=== PATIENT | female | born 1965 | race Caucasian/White ===

== ENCOUNTER 2016-04-04 14:02 | Emergency (ER) | payer BC, OTHER ==
--- NOTE | 2016-04-04 14:28 | ED ---
URI HPI - General Stated Complaint: Congestion/SOB-1 week Time Seen by Provider: 04/04/16 14:11 Source: RN notes reviewed - History of Present Illness Initial Comments: Patient is a 50-year-old female presents to the emergency room for evaluation of sinus congestion and productive cough. Patient states symptoms began about a week ago. Patient states symptoms are not improving. Patient states taking ibuprofen and her normal medications with no relief of symptoms. Patient does admit having a history of COPD. Patient states she is coughing up white sputum. Patient states the middle of quitting smoking. Patient denies any fevers. Patient denies bodyaches. Patient states he is up-to-date in her immunizations besides influenza vaccine. Patient denies chest pain. Patient also states she is experiencing mild throat pain. Patient denies abdominal pain , nausea or vomiting. - Related Data Home Medications Medication Instructions Recorded Confirmed Albuterol Sulfate [Ventolin HFA] 1 - 2 puff INHALATION RT-Q6H PRN 02/17/1404/04 Aspirin 81 mg PO DAILY 02/17/14 04/04/16 Budesonide-Formot 160-4.5 Mcg 2 puff INHALATION RT-BID 02/17/14 04/04/16 [Symbicort 160-4.5 Mcg Inhaler] Divalproex ER [Depakote ER] 1,000 mg PO DAILY 02/17/14 04/04/16 Ipratropium-Albuterol Nebulize 3 ml INHALATION RT-Q4H PRN 02/17/14 04/04/16 [Duoneb 0.5 mg-3 mg/3 ml Soln] Lisinopril [Zestril] 5 mg PO DAILY 02/17/14 04/04/16 Spironolactone [Aldactone] 25 mg PO DAILY 02/17/14 04/04/16 Carvedilol [Coreg] 6.25 mg PO BID 04/04/16 04/04/16 Ipratropium [place] [Atrovent Hfa] 2 puff INHALATION RT-QID 04/04/16 04/04/16 Topiramate [Topamax] 25 mg PO BID 04/04/16 04/04/16 Vortioxetine Hydrobromide 10 mg PO DAILY 04/04/16 04/04/16 [Trintellix] Previous Rx's Medication Instructions Recorded methylPREDNISolone Dose Pack 4 mg PO DIRECTED #21 package 04/04/16 [Medrol Dose Pack] Allergies Allergy/AdvReac Type Severity Reaction Status Date / Time cephalexin monohydrate Allergy Rash/Hives Verified 04/04/16 14:22 [From Keflex] haloperidol [From Haldol] Allergy Unknown Verified 04/04/16 14:22 haloperidol lactate Allergy Unknown Verified 04/04/16 14:22 [From Haldol] Review of Systems ROS Statement: Those systems with pertinent positive or pertinent negative responses have been documented in the HPI. ROS Other: All systems not noted in ROS Statement are negative. Past Medical History Past Medical History: COPD, Myocardial Infarction ([place]) History of Any Multi-Drug Resistant Organisms: None Reported Past Surgical History: Section, Tubal Ligation, Uterine Ablation Past Psychological History: Anxiety, Bipolar, Depression Smoking Status: Current every day smoker Past Alcohol Use History: Rare Past Drug Use History: None Reported General Exam - General Exam Comments Initial Comments: Sitting on exam chair, no acute distress. Limitations: no limitations General appearance: alert, in no apparent distress Head exam: Present: atraumatic, normocephalic, normal inspection Eye exam: Present: normal appearance ENT exam: Present: normal exam, mucous membranes moist, TM's normal bilaterally , normal external ear exam Expanded Mouth exam: Present: normal external inspection Teeth exam: Present: normal inspection Throat exam: normal inspection Neck exam: Present: normal inspection Respiratory exam: Present: wheezes. Absent: respiratory distress Cardiovascular Exam: Present: regular rate, normal rhythm, normal heart sounds Extremities exam: Present: normal inspection Back exam: Present: normal inspection Neurological exam: Present: alert, oriented X3, CN II-XII intact, normal gait Psychiatric exam: Present: normal affect, normal mood Skin exam: Present: warm, dry, intact, normal color. Absent: rash Course Vital Signs 04/04/16 04/04/16 14:23 17:00 Temperature 98.0 F 97.8 F Pulse Rate 66 70 Respiratory 16 18 Rate Blood Pressure 120/68 118/72 O2 Sat by Pulse 98 98 Oximetry - Reevaluation(s) Reevaluation #1: 04/04/16 15:09 Chest x-ray was performed. Chest x-ray: There is a somewhat convex margin of the right pulmonary artery which could be seen with adenopathy or mass. Follow- up computed tomography scan chest (per radiology). Blood work will be ordered and patient will be sent for CT. Patient updated. Medical Decision Making - Medical Decision Making Patient is a 50-year-old female presents emergency room for evaluation of cough and congestion. Chest x-ray: Somewhat convex margin of the right pulmonary artery which could be seen with adenopathy or mass. Follow-up computed tomography scan chest. Chest CTA: No CT evidence for pulmonary embolism. Mild emphysema change without acute pulmonary process. Labs show no significant findings. Place patient on Medrol Dosepak and have her follow-up with her primary care provider. Patient states she understands everything that was discussed with her. Return parameters discussed. Case discussed with Dr. Paula. - Lab Data Result diagrams: 04/04/16 15:35 04/04/16 15:35 Lab Results 04/04/16 04/04/16 04/04/16 Range/Units 14:39 15:35 15:35 WBC 12.1 H (3.8-10.6) k/uL RBC 4.28 (3.80-5.40) m/uL Hgb 13.7 (11.4-16.0) gm/dL Hct 40.9 (34.0-46.0) % MCV 95.4 (80.0-100.0) fL MCH 32.0 (25.0-35.0) pg MCHC 33.5 (31.0-37.0) g/dL RDW 12.3 (11.5-15.5) % Plt Count 316 (150-450) k/uL Neutrophils % 69 % Lymphocytes % 20 % Monocytes % 5 % Eosinophils % 4 % Basophils % 1 % Neutrophils # 8.3 H (1.3-7.7) k/uL Lymphocytes # 2.5 (1.0-4.8) k/uL Monocytes # 0.7 (0-1.0) k/uL Eosinophils # 0.4 (0-0.7) k/uL Basophils # 0.1 (0-0.2) k/uL Sodium 139 (137-145) mmol/L Potassium 4.3 (3.5-5.1) mmol/L Chloride 104 (98-107) mmol/L Carbon Dioxide 24 (22-30) mmol/L Anion Gap 11 mmol/L BUN 10 (7-17) mg/dL Creatinine 0.71 (0.52-1.04) mg/dL Est GFR (MDRD) Af Amer >60 (>60 ml/min/1.73 sqM) Est GFR (MDRD) Non-Af >60 (>60 ml/min/1.73 sqM) Glucose 96 (74-99) mg/dL Calcium 9.4 (8.4-10.2) mg/dL Total Bilirubin 0.3 (0.2-1.3) mg/dL AST 20 (14-36) U/L ALT 34 (9-52) U/L Alkaline Phosphatase 59 (38-126) U/L Total Protein 6.9 (6.3-8.2) g/dL Albumin 4.2 (3.5-5.0) g/dL Influenza Type A RNA Not Detected (Not Detectd) Influenza Type B (PCR) Not Detected (Not Detectd) - Radiology Data Radiology results: report reviewed, image reviewed Disposition Clinical Impression: Upper respiratory infection Disposition: HOME SELF-CARE Condition: Good Instructions: Upper Respiratory Infection (ED) Additional Instructions: Take medications as directed. Take Tylenol or ibuprofen as needed for pain. Please follow up with primary care provider in 1-2 days. If any new symptom arises or symptoms worsen, return to ER as soon as possible. Prescriptions: methylPREDNISolone Dose Pack [Medrol Dose Pack] 4 mg PO DIRECTED #21 package Referrals: Dell Lozoya MD [Primary Care Provider] - 1-2 days Time of Disposition: 16:54
--- NOTE | 2016-04-04 14:39 | XR ---
EXAMINATION TYPE: XR chest 2V DATE OF EXAM: 04/04/2016 2:33 PM COMPARISON: 06/25/2013 HISTORY: Shortness of breath FINDINGS: The lungs are clear and there is no pneumothorax, pleural effusion, or focal pneumonia. Prominence the pulmonary artery is now noted. Correlate for pulmonary arterial hypertension. Somewhat convex [place] of the right hilum now seen. Mild hypertrophic change of the spine. Biapical pleural thickening noted. IMPRESSION: 1. No acute process. There is a somewhat convex margin of the right pulmonary artery which could be s een with adenopathy or mass. Recommend follow-up CT scan chest.
[2016-04-04] MEDS ORDERED: RX INFO: IV CONTRAST WAS GIVEN 1 EACH MISC MISCELLANE PRN (15:07)
[2016-04-04 15:44] LABS: Basophils # (A) 0.1 k/uL (0-0.2); Basophils % (A) 1 %; CH 32.7; CHCM 34.4; Eosinophils # (A) 0.4 k/uL (0-0.7); Eosinophils % (A) 4 %; HCT 40.9 % (34.0-46.0); HDW 2.24; HGB 13.7 gm/dL (11.4-16.0); Luc # (Auto) 0.19; Luc % (Auto) 2; Lymphocytes # (A) 2.5 k/uL (1.0-4.8); Lymphocytes % (A) 20 %; MCHC 33.5 g/dL (31.0-37.0); MCV 95.4 fL (80.0-100.0); Mean Platelet Volume 7.5; Monocytes # (A) 0.7 k/uL (0-1.0); Monocytes % (A) 5 %; Neutrophils # (A) 8.3 k/uL (1.3-7.7); Neutrophils % (A) 69 %; RBC 4.28 m/uL (3.80-5.40); RDW 12.3 % (11.5-15.5); WBC 12.1 k/uL (3.8-10.6); WBC (Perox) 12.35
[2016-04-04 15:51] LABS: ALT 34 U/L (9-52); AST 20 U/L (14-36); Alkaline Phosphatase 59 U/L (38-126); Anion Gap 11 mmol/L; Blood Urea Nitrogen 10 mg/dL (7-17); Calcium 9.4 mg/dL (8.4-10.2); Carbon Dioxide 24 mmol/L (22-30); Chloride 104 mmol/L (98-107); Glucose 96 mg/dL (74-99); Non-African American GFR(MDRD) >60 (>60 ml/min/1.73 sqM); Potassium 4.3 mmol/L (3.5-5.1); Sodium 139 mmol/L (137-145); Total Bilirubin 0.3 mg/dL (0.2-1.3); Total Protein 6.9 g/dL (6.3-8.2)
--- NOTE | 2016-04-04 16:42 | CT ---
EXAMINATION TYPE: CT angio chest DATE OF EXAM: 04/04/2016 4:37 PM COMPARISON: NONE HISTORY: PT states of chest tightness and SOB. CT DLP: 303.7 mGycm Automated exposure control for dose reduction was used. CONTRAST: CTA scan of the thorax is performed with IV Contrast, patient injected with 75 mL of Omnipaque 350, p ulmonary embolism protocol. MIP images are created and reviewed. 3D reconstructed images are create d on an independent workstation and reviewed. FINDINGS: LUNGS: Exam is suboptimal as there is respiratory motion artifact making evaluation suboptimal partic ularly for subcentimeter nodularity. Mild emphysematous change with mild bilateral apical scarring is present. No suspicious groundglass opacity and consolidation is seen. No concerning parenchymal mass is identified. No pleural effusion or pneumothorax is seen. Tracheobronchial tree is patent. MEDIASTINUM: There is satisfactory enhancement of the pulmonary artery and its branches, there is no CT evidence for pulmonary embolism. There are no greater than 1 cm hilar or mediastinal lymph nodes. No cardiomegaly or pericardial effusion is seen. OTHER: Liver is low dense suggesting fatty infiltration. IMPRESSION: 1. NO CT EVIDENCE FOR PULMONARY EMBOLISM. 2. MILD EMPHYSEMATOUS CHANGE WITHOUT ACUTE PULMONARY PROCESS.
[2016-04-04 17:22] VITALS: BP 118/72; PULSE 70; RESP 18; TEMP 97.8
== END 2016-04-04 17:23 | disposition home or self-care (01) ==
LOC: EC 14:02
DX: J06.9 Acute upper respiratory infection, unspecified (principal); J44.9 Chronic obstructive pulmonary disease, unspecified; R07.0 Pain in throat; Z79.899 Other long term (current) drug therapy; I25.2 Old myocardial infarction; F17.200 Nicotine dependence, unspecified, uncomplicated; Z79.51 Long term (current) use of inhaled steroids; Z79.82 Long term (current) use of aspirin; Z88.1 Allergy status to other antibiotic agents; Z88.8 Allergy status to other drugs, medicaments and biological substances; Z87.891 Personal history of nicotine dependence
CPT/HCPCS: 99285; 36415; 80053; 85025; 87502; 71020; 71275; Q9967

== ENCOUNTER → 2016-06-17 | Outpatient (CLI) | payer OTHER ==
[2016-06-17 15:04] LABS: Anion Gap 8 mmol/L; Blood Urea Nitrogen 11 mg/dL (7-17); Calcium 9.4 mg/dL (8.4-10.2); Carbon Dioxide 31 mmol/L (22-30); Chloride 101 mmol/L (98-107); Glucose 95 mg/dL (74-99); Non-African American GFR(MDRD) >60 (>60 ml/min/1.73 sqM); Potassium 3.9 mmol/L (3.5-5.1); Sodium 140 mmol/L (137-145)
== END ==
LOC: LABWHC1 13:18
PROVIDERS: ATTEND Internal Medicine Cardiovascular Disease
DX: I10 Essential (primary) hypertension (principal)
CPT/HCPCS: 36415; 80048; 83704; 83880; 84439; 84443

== ENCOUNTER 2016-09-29 23:26 | Emergency (ER) | payer MEDICARE, OTHER ==
[2016-09-29 23:30] VITALS: BP 116/57; PULSE 78; RESP 20; TEMP 97.5
[2016-09-29] MEDS ORDERED: DIPH,PERTUS(ACELL)TETVAC-LF 0.5 ML VIAL IM ONE (23:40)
--- NOTE | 2016-09-30 00:01 | ED ---
General Adult HPI - General Chief complaint: Wound/Laceration Stated complaint: Fall-Leg Lac Time Seen by Provider: 09/29/16 23:33 Source: patient, RN notes reviewed Mode of arrival: wheelchair Limitations: no limitations - History of Present Illness Initial comments: Patient 50-year-old female who presents emergency room today with a chief complaint of laceration to the right juárez. Does admit that she was walking outside tripped over a tree stump causes laceration. Patient denies any other injuries or complaints. States unsure of her tetanus status. Patient denies any recent fever, chills, shortness of breath, chest pain, back pain, abdominal pain, nausea or vomiting, numbness or tingling, dysuria or hematuria, constipation or diarrhea, headaches or visual changes, or any other complaints. - Related Data Home Medications Medication Instructions Recorded Confirmed Albuterol Sulfate [Ventolin HFA] 1 - 2 puff INHALATION RT-Q6H PRN 02/17/1404/04 Aspirin 81 mg PO DAILY 02/17/14 04/04/16 Budesonide-Formot 160-4.5 Mcg 2 puff INHALATION RT-BID 02/17/14 04/04/16 [Symbicort 160-4.5 Mcg Inhaler] Divalproex ER [Depakote ER] 1,000 mg PO DAILY 02/17/14 04/04/16 Ipratropium-Albuterol Nebulize 3 ml INHALATION RT-Q4H PRN 02/17/14 04/04/16 [Duoneb 0.5 mg-3 mg/3 ml Soln] Lisinopril [Zestril] 5 mg PO DAILY 02/17/14 04/04/16 Spironolactone [Aldactone] 25 mg PO DAILY 02/17/14 04/04/16 Carvedilol [Coreg] 6.25 mg PO BID 04/04/16 04/04/16 Ipratropium [place] [Atrovent Hfa] 2 puff INHALATION RT-QID 04/04/16 04/04/16 Topiramate [Topamax] 25 mg PO BID 04/04/16 04/04/16 Vortioxetine Hydrobromide 10 mg PO DAILY 04/04/16 04/04/16 [Trintellix] Previous Rx's Medication Instructions Recorded methylPREDNISolone Dose Pack 4 mg PO DIRECTED #21 package 04/04/16 [Medrol Dose Pack] Sulfamethox-Tmp 800-160Mg [Bactrim 1 tab PO Q12HR #14 tab 09/30/16 DS 800-160 mg] Allergies Allergy/AdvReac Type Severity Reaction Status Date / Time cephalexin monohydrate Allergy Rash/Hives Verified 09/29/16 23:30 [From Keflex] haloperidol [From Haldol] Allergy Unknown Verified 09/29/16 23:30 Review of Systems ROS Statement: Those systems with pertinent positive or pertinent negative responses have been documented in the HPI. ROS Other: All systems not noted in ROS Statement are negative. Past Medical History Past Medical History: COPD, Myocardial Infarction ([place]) History of Any Multi-Drug Resistant Organisms: None Reported Past Surgical History: Section, Tubal Ligation, Uterine Ablation Past Psychological History: Anxiety, Bipolar, Depression Smoking Status: Current every day smoker Past Alcohol Use History: Rare Past Drug Use History: None Reported General Exam - General Exam Comments Initial Comments: General: The patient is awake and alert, in no distress, and does not appear acutely ill. Neck: The neck is supple, there is no tenderness or JVD. Cardiovascular: There is a regular rate and rhythm. No murmur, rub or gallop is appreciated. Respiratory: Lungs are clear to auscultation, respirations are non-labored, breath sounds are equal. No wheezes, stridor, rales, or rhonchi. Musculoskeletal: Full range of motion. Sensation intact. Pulses equal bilaterally 2+. Strength 5/5 in all areas. Neurological: A&O x 3. CN II-XII intact, There are no obvious motor or sensory deficits. Coordination appears grossly intact. Speech is normal. Skin: 2.5 cm linear laceration running vertically to the anterior aspect of her chin. No active bleeding. Psychiatric: Normal mood and affect. Limitations: no limitations Course Vital Signs 09/29/16 23:27 Temperature 97.5 F L Pulse Rate 78 Respiratory 20 Rate Blood Pressure 116/57 O2 Sat by Pulse 98 Oximetry Procedures - Procedures Initial comment: 2.5 cm linear laceration to the anterior right juárez. The skin was anesthetized with 1% lidocaine. The laceration was then cleansed with Betadine and irrigated with normal saline. The wound was inspected, and there was no evidence of injury to deep structures. No foreign body was noted in the wound. A total of 6 skin sutures were placed utilizing 4-0 nylon. Disposition Clinical Impression: Laceration Disposition: HOME SELF-CARE Condition: Good Instructions: Laceration (ED) Additional Instructions: Please return to the emergency room in 8-10 days to have sutures removed. Please watch for any signs of infection which may include increased pain, swelling, redness, fever or chills. Please return to emergency room for any signs of infection do occur. Please use clean soap and water over the area to prevent scabbing over your stitches. Please leave wound covered for the first 24-48 hours and then leave wound open to air. Please return to the emergency room for any other concerns. Prescriptions: Sulfamethox-Tmp 800-160Mg [Bactrim DS 800-160 mg] 1 tab PO Q12HR #14 tab Referrals: Dell Lozoya MD [Primary Care Provider] - 1-2 days Time of Disposition: 23:59
== END 2016-09-30 00:13 | disposition home or self-care (01) ==
LOC: EC 23:26
DX: S81.811A Laceration without foreign body, right lower leg, initial encounter (principal); J44.9 Chronic obstructive pulmonary disease, unspecified; F31.9 Bipolar disorder, unspecified; F17.200 Nicotine dependence, unspecified, uncomplicated; Z23 Encounter for immunization; Z88.1 Allergy status to other antibiotic agents; Z88.8 Allergy status to other drugs, medicaments and biological substances; Z79.51 Long term (current) use of inhaled steroids; Z79.82 Long term (current) use of aspirin; Z79.899 Other long term (current) drug therapy; W01.0XXA Fall on same level from slipping, tripping and stumbling without subsequent striking against object, initial encounter; Y93.01 Activity, walking, marching and hiking
CPT/HCPCS: 12001; 90471; 90715; 99282

== ENCOUNTER 2017-01-05 23:07 | Emergency (ER) | payer MEDICARE ==
[2017-01-06 01:07] LABS: Basophils # (A) 0.1 k/uL (0-0.2); Basophils % (A) 1 %; CH 32.4; CHCM 34.7; Eosinophils # (A) 0.5 k/uL (0-0.7); Eosinophils % (A) 4 %; HCT 39.8 % (34.0-46.0); HDW 2.03; HGB 13.4 gm/dL (11.4-16.0); Luc % (Auto) 2; Lymphocytes # (A) 4.6 k/uL (1.0-4.8); Lymphocytes % (A) 35 %; MCH 31.5 pg (25.0-35.0); MCHC 33.7 g/dL (31.0-37.0); MCV 93.6 fL (80.0-100.0); Mean Platelet Volume 7.5; Monocytes # (A) 0.9 k/uL (0-1.0); Monocytes % (A) 7 %; Neutrophils # (A) 6.9 k/uL (1.3-7.7); Neutrophils % (A) 52 %; RBC 4.25 m/uL (3.80-5.40); RDW 13.6 % (11.5-15.5); WBC 13.2 k/uL (3.8-10.6); WBC (Perox) 13.83
[2017-01-06 01:10] LABS: Appearance,Urine Clear (Clear); Bilirubin,Urine Negative (Negative); Glucose,Urine (UA) Negative (Negative); Ketones,Urine Negative (Negative); Leukocyte Esterase,Urine Small (Negative); Mucus,Urine Rare /hpf; Nitrite,Urine Negative (Negative); Particle Count 474; Protein,Urine Negative (Negative); RBC,Urine 1 /hpf (0-5); Specific Gravity,Urine 1.003 (1.001-1.035); Squamous Epithelial Cell,Urine 2 /hpf (0-4); UA Billing (MACRO vs. MICRO) MICRO; Urobilinogen,Urine <2.0 mg/dL (<2.0); WBC,Urine 2 /hpf (0-5)
[2017-01-06 01:26] LABS: ALT 52 U/L (9-52); AST 31 U/L (14-36); Alkaline Phosphatase 60 U/L (38-126); Amylase 54 U/L (30-110); Anion Gap 10 mmol/L; Blood Urea Nitrogen 14 mg/dL (7-17); Calcium 9.4 mg/dL (8.4-10.2); Carbon Dioxide 27 mmol/L (22-30); Chloride 102 mmol/L (98-107); Glucose 78 mg/dL (74-99); Non-African American GFR(MDRD) >60 (>60 ml/min/1.73 sqM); Potassium 3.7 mmol/L (3.5-5.1); Sodium 139 mmol/L (137-145); Total Bilirubin 0.3 mg/dL (0.2-1.3); Total Protein 6.9 g/dL (6.3-8.2)
[2017-01-06 01:42] VITALS: BP 105/52; PULSE 60; RESP 18
--- NOTE | 2017-01-06 02:06 | ED ---
Abdominal Pain HPI - General Chief Complaint: Abdominal Pain Stated Complaint: Abd Pain Time Seen by Provider: 01/06/17 00:06 Source: patient, RN notes reviewed, old records reviewed Mode of arrival: ambulatory Limitations: no limitations - History of Present Illness Initial Comments: This is a 51 year old female with CC of pin worms and abdominal pain. Patient was stating she has had epigastric abdominal pain for a few weeks, and has had a full work up by PCP including US gallbladder. Patient also reprots that her family was treated for pin worms in October, but she noted that she has had them agin today. She states that she has had normal bowel movements. - Related Data Home Medications Medication Instructions Recorded Confirmed Albuterol Sulfate [Ventolin HFA] 1 - 2 puff INHALATION RT-Q6H PRN 02/17/1412/23 Aspirin 81 mg PO DAILY 02/17/14 12/23/16 Budesonide-Formot 160-4.5 Mcg 2 puff INHALATION RT-BID 02/17/14 12/23/16 [Symbicort 160-4.5 Mcg Inhaler] Divalproex ER [Depakote ER] 1,000 mg PO HS 02/17/14 12/23/16 Ipratropium-Albuterol Nebulize 3 ml INHALATION RT-Q4H PRN 02/17/14 12/23/16 [Duoneb 0.5 mg-3 mg/3 ml Soln] Lisinopril [Zestril] 5 mg PO DAILY 02/17/14 12/23/16 Carvedilol [Coreg] 6.25 mg PO BID 04/04/16 12/23/16 Atorvastatin Calcium [Lipitor] 20 mg PO QAM 12/23/16 12/23/16 Ciprofloxacin HCl [Cipro] 500 mg PO Q12HR 12/23/16 12/23/16 FLUoxetine HCL [PROzac] 20 mg PO DAILY 12/23/16 12/23/16 Furosemide [Lasix] 40 mg PO BID 12/23/16 12/23/16 Previous Rx's Medication Instructions Recorded Albuterol Inhaler [Ventolin Hfa 1 - 2 puff INHALATION Q4-6H PRN #1 12/23/16 Inhaler] inhaler Fluticasone Propionate [Flonase 1 - 2 spray EA NOSTRIL DAILY 5 Days 12/23/16 Allergy Relief] Fluticasone Propionate [Flonase 1 - 2 spray EA NOSTRIL DAILY 5 Days 12/23/16 Allergy Relief] Loratadine [Claritin] 10 mg PO DAILY 20 Days 12/23/16 Albendazole [Albenza] 400 mg PO DAILY #2 01/06/17 Omeprazole 40 mg PO DAILY #20 capsule. 01/06/17 Allergies Allergy/AdvReac Type Severity Reaction Status Date / Time cephalexin monohydrate Allergy Itching Verified 01/05/17 23:12 [From Keflex] haloperidol [From Haldol] AdvReac Extrapyramidal Verified 01/05/17 23:12 Symptoms Review of Systems ROS Statement: Those systems with pertinent positive or pertinent negative responses have been documented in the HPI. ROS Other: All systems not noted in ROS Statement are negative. Past Medical History Past Medical History: COPD, Myocardial Infarction ([place]) History of Any Multi-Drug Resistant Organisms: None Reported Past Surgical History: Section, Tubal Ligation, Uterine Ablation Past Psychological History: Anxiety, Bipolar, Depression Smoking Status: Current every day smoker Past Alcohol Use History: None Reported Past Drug Use History: None Reported General Exam - General Exam Comments Initial Comments: This is a 51 year old female, no distress. Limitations: no limitations General appearance: alert, in no apparent distress Head exam: Present: atraumatic, normocephalic, normal inspection Eye exam: Present: normal appearance, PERRL, EOMI. Absent: scleral icterus, conjunctival injection, periorbital swelling ENT exam: Present: normal exam, mucous membranes moist Neck exam: Present: normal inspection. Absent: tenderness, meningismus, lymphadenopathy Respiratory exam: Present: normal lung sounds bilaterally. Absent: respiratory distress, wheezes, rales, rhonchi, stridor Cardiovascular Exam: Present: regular rate, normal rhythm, normal heart sounds. Absent: systolic murmur, diastolic murmur, rubs, gallop, clicks GI/Abdominal exam: Present: soft, tenderness (minimal epigastric tenderness. ), normal bowel sounds. Absent: distended, guarding, rebound, rigid Rectal exam: Present: normal inspection, normal rectal tone, other (evidence of white pin worms. ) Extremities exam: Present: normal inspection, full ROM, normal capillary refill. Absent: tenderness, pedal edema, joint swelling, calf tenderness Back exam: Present: normal inspection Neurological exam: Present: alert, oriented X3, CN II-XII intact Psychiatric exam: Present: normal affect, normal mood Course Vital Signs 01/05/17 01/06/17 01/06/17 23:08 01:41 02:19 Temperature 98 F 98.0 F Pulse Rate 72 60 Respiratory 16 18 Rate Blood Pressure 126/60 105/52 O2 Sat by Pulse 98 100 Oximetry Medical Decision Making - Medical Decision Making This is a 51 year old female with weeks of abdominal pain, as well as noticing that today she has been reinfected with pin worms, she completed treatment with her family in October. Patient has minimal epigastric tenderness. Patient labs were reviewed and negative for significant abormalities. Patient rectal exam shows occult negative and does show small white round worms. Patient will be discharged with albendazole and advised to take [place] OTC medication. Patient advised to treat family. Patient will also be treated for gastritis symptoms with omeprazole. Discussed follow up with PCP and return parameters discussed. - Lab Data Result diagrams: 01/06/17 00:50 01/06/17 00:50 Lab Results 01/06/17 01/06/17 01/06/17 Range/Units 00:50 00:50 00:50 WBC 13.2 H (3.8-10.6) k/uL RBC 4.25 (3.80-5.40) m/uL Hgb 13.4 (11.4-16.0) gm/dL Hct 39.8 (34.0-46.0) % MCV 93.6 (80.0-100.0) fL MCH 31.5 (25.0-35.0) pg MCHC 33.7 (31.0-37.0) g/dL RDW 13.6 (11.5-15.5) % Plt Count 319 (150-450) k/uL Neutrophils % 52 % Lymphocytes % 35 % Monocytes % 7 % Eosinophils % 4 % Basophils % 1 % Neutrophils # 6.9 (1.3-7.7) k/uL Lymphocytes # 4.6 (1.0-4.8) k/uL Monocytes # 0.9 (0-1.0) k/uL Eosinophils # 0.5 (0-0.7) k/uL Basophils # 0.1 (0-0.2) k/uL Sodium 139 (137-145) mmol/L Potassium 3.7 (3.5-5.1) mmol/L Chloride 102 (98-107) mmol/L Carbon Dioxide 27 (22-30) mmol/L Anion Gap 10 mmol/L BUN 14 (7-17) mg/dL Creatinine 0.70 (0.52-1.04) mg/dL Est GFR (MDRD) Af Amer >60 (>60 ml/min/1.73 sqM) Est GFR (MDRD) Non-Af >60 (>60 ml/min/1.73 sqM) Glucose 78 (74-99) mg/dL Calcium 9.4 (8.4-10.2) mg/dL Total Bilirubin 0.3 (0.2-1.3) mg/dL AST 31 (14-36) U/L ALT 52 (9-52) U/L Alkaline Phosphatase 60 (38-126) U/L Total Protein 6.9 (6.3-8.2) g/dL Albumin 4.2 (3.5-5.0) g/dL Amylase 54 (30-110) U/L Lipase 254 (23-300) U/L Urine Color Colorless Urine Appearance Clear (Clear) Urine pH 5.0 (5.0-8.0) Ur Specific [place] 1.003 (1.001-1.035) Urine Protein Negative (Negative) Urine Glucose (UA) Negative (Negative) Urine Ketones Negative (Negative) Urine Blood Negative (Negative) Urine Nitrite Negative (Negative) Urine Bilirubin Negative (Negative) Urine Urobilinogen <2.0 (<2.0) mg/dL Ur Leukocyte Esterase Small H (Negative) Urine RBC 1 (0-5) /hpf Urine WBC 2 (0-5) /hpf Ur Squamous Epith Cells 2 (0-4) /hpf Urine Mucus Rare H (None) /hpf Stool Occult Blood (Negative) 01/06/17 Range/Units 00:50 WBC (3.8-10.6) k/uL RBC (3.80-5.40) m/uL Hgb (11.4-16.0) gm/dL Hct (34.0-46.0) % MCV (80.0-100.0) fL MCH (25.0-35.0) pg MCHC (31.0-37.0) g/dL RDW (11.5-15.5) % Plt Count (150-450) k/uL Neutrophils % % Lymphocytes % % Monocytes % % Eosinophils % % Basophils % % Neutrophils # (1.3-7.7) k/uL Lymphocytes # (1.0-4.8) k/uL Monocytes # (0-1.0) k/uL Eosinophils # (0-0.7) k/uL Basophils # (0-0.2) k/uL Sodium (137-145) mmol/L Potassium (3.5-5.1) mmol/L Chloride (98-107) mmol/L Carbon Dioxide (22-30) mmol/L Anion Gap mmol/L BUN (7-17) mg/dL Creatinine (0.52-1.04) mg/dL Est GFR (MDRD) Af Amer (>60 ml/min/1.73 sqM) Est GFR (MDRD) Non-Af (>60 ml/min/1.73 sqM) Glucose (74-99) mg/dL Calcium (8.4-10.2) mg/dL Total Bilirubin (0.2-1.3) mg/dL AST (14-36) U/L ALT (9-52) U/L Alkaline Phosphatase (38-126) U/L Total Protein (6.3-8.2) g/dL Albumin (3.5-5.0) g/dL Amylase (30-110) U/L Lipase (23-300) U/L Urine Color Urine Appearance (Clear) Urine pH (5.0-8.0) Ur Specific [place] (1.001-1.035) Urine Protein (Negative) Urine Glucose (UA) (Negative) Urine Ketones (Negative) Urine Blood (Negative) Urine Nitrite (Negative) Urine Bilirubin (Negative) Urine Urobilinogen (<2.0) mg/dL Ur Leukocyte Esterase (Negative) Urine RBC (0-5) /hpf Urine WBC (0-5) /hpf Ur Squamous Epith Cells (0-4) /hpf Urine Mucus (None) /hpf Stool Occult Blood Negative (Negative) Disposition Clinical Impression: Gastritis, Enterobiasis enterobius vermicularis Disposition: HOME SELF-CARE Condition: Good Instructions: Pyrantel (By mouth) Additional Instructions: Advised to purchase [place]'s pinworm [id number] treatment for family and have everyone else treated. Patient should take the dose of albendazole and repeat in 2 weeks. Patient should also take omeprazole daily for gastritis. Recommended bland diet. Follow-up with primary care provider. Return to the emergency department if any alarming signs or symptoms occur. Prescriptions: Albendazole [Albenza] 400 mg PO DAILY #2 Omeprazole 40 mg PO DAILY #20 capsule. Referrals: Gunner Morrison DO [Primary Care Provider] - 1-2 days Time of Disposition: 02:02
[2017-01-06 02:20] VITALS: TEMP 98
== END 2017-01-06 02:20 | disposition home or self-care (01) ==
LOC: EC 23:07
DX: K29.70 Gastritis, unspecified, without bleeding (principal); B80 Enterobiasis; J44.9 Chronic obstructive pulmonary disease, unspecified; I25.2 Old myocardial infarction; Z98.51 Tubal ligation status; F41.9 Anxiety disorder, unspecified; F32.9 Major depressive disorder, single episode, unspecified; F17.200 Nicotine dependence, unspecified, uncomplicated; Z88.8 Allergy status to other drugs, medicaments and biological substances; Z88.1 Allergy status to other antibiotic agents; Z79.899 Other long term (current) drug therapy; Z79.82 Long term (current) use of aspirin
CPT/HCPCS: 36415; 80053; 81001; 82150; 82272; 83690; 85025; 99284

== ENCOUNTER 2017-02-23 10:01 | Day surgery (SDC) | payer MEDICARE ==
[2017-02-18 09:16] VITALS: BMI 24.8
[~2017-02-23 10:01] MED LIST: LACTATED RINGERS 1,000 ML IV SCH; LIDOCAINE 1% 20 ML VIAL (10MG/ML) FOR IV START INTRADERMA PRN
[2017-02-23 11:20] VITALS: TEMP 97.8
[2017-02-23] MEDS ORDERED: PROPOFOL 10 MG/ML 20 ML VIAL IV ONE (11:59)
[2017-02-23 12:44] VITALS: RESP 16
--- NOTE | 2017-02-23 12:49 | P.PCN ---
Date of Procedure: 02/23/17 Procedure(s) Performed: procedures: 1. Esophagogastroduodenoscopy and biopsy. 2. Colonoscopy and biopsy and polypectomy. Preoperative diagnosis: Epigastric pain and intermittent diarrhea. Postoperative diagnosis: 1. Small sliding hiatal hernia with no obvious esophagitis or complicated reflux disease. 2. Mild antral gastritis. 3. Sigmoid diverticulosis with no evidence of acute diverticulitis or strictures. 4. Distal sigmoid polyp snared but no large polyps or cancer. 5. Right colon biopsies obtained to rule out microscopic colitis. Preparation: HalfLytely prep. Sedation: Was provided by anesthesia. Brief clinical history: The patient is a 51-year-old female who was evaluated in the office earlier this month regarding epigastric pain and nausea as well as intermittent diarrhea. This would be her first upper and lower endoscopy. Procedure: With the patient on her left lateral decubitus position and after informed consent and adequate sedation, I passed the Olympus-GIF 160 video upper endoscope through the cricopharyngeus down the esophagus. GE junction was around 39 cm from the incisors and there was a small sliding hiatal hernia. The esophagus did not show any erosions, ulcers, strictures or Marte's esophagus. The endoscope was then passed into the stomach which was insufflated with air and inspected in detail including the retroflex view in the cardia. There was some mottling and erythema in the antrum but no ulcers or erosions. Pyloric channel did not show any ulcers. Duodenal bulb, post bulbar area and descending duodenum showed minimal erythema but no ulcers, erosions or bleeding. I obtained biopsies from the duodenum, antrum and esophagus then the endoscope was withdrawn and I proceeded with the colonoscopy. Perianal area did not show any fissures or fistulas. There were no masses felt on digital rectal examination. The Olympus CFQ 160L video colonoscope was then inserted in the rectum in the usual fashion and advanced to the cecum. there was multiple diverticular orifices seen scattered in the sigmoid with no evidence of acute diverticulitis or strictures. There was a distal sigmoid polyp which I snared and retrieved by suction but there were no large polyps or cancer. I was not able to intubate the ileocecal valve to examine and biopsy the terminal ileum but I was able to obtain biopsies from the right colon. There was no evidence of inflammatory bowel disease or other obvious pathology. I retroflexed the endoscope in the rectum before the endoscope was withdrawn. The patient tolerated the procedure well. plan: The patient was reassured. Will await pathology results. I anticipate repeating her colonoscopy in 3-5 years. We would see her in follow-up in the office in keep you updated on her progress.
[2017-02-23 13:04] VITALS: BP 108/64; PULSE 68
== END 2017-02-23 13:15 | disposition home or self-care (01) ==
LOC: ORWHC2ENDO 10:01
DX: K29.50 Unspecified chronic gastritis without bleeding (principal); K44.9 Diaphragmatic hernia without obstruction or gangrene; K21.0 Gastro-esophageal reflux disease with esophagitis; D12.5 Benign neoplasm of sigmoid colon; K57.30 Diverticulosis of large intestine without perforation or abscess without bleeding; E78.5 Hyperlipidemia, unspecified; J44.9 Chronic obstructive pulmonary disease, unspecified; I25.10 Atherosclerotic heart disease of native coronary artery without angina pectoris; I25.2 Old myocardial infarction; Z79.899 Other long term (current) drug therapy; Z79.51 Long term (current) use of inhaled steroids; Z79.82 Long term (current) use of aspirin; Z88.1 Allergy status to other antibiotic agents; Z88.8 Allergy status to other drugs, medicaments and biological substances; Z72.0 Tobacco use
CPT/HCPCS: 93005; 88305; 88342; 84703; 45380; 45385; 43239; J2704

== ENCOUNTER → 2017-04-08 | Outpatient (CLI) | payer MEDICARE ==
--- NOTE | 2017-04-09 09:15 | MM ---
Reason for exam: screening (asymptomatic). Last mammogram was performed 3 years and 7 months ago. History: Excisional biopsy of the left breast, December 15, 2007. Cancelled Left Mammotome of the left breast, December 08, 2007. Took hormonal contraceptives for 2 years. Physical Findings: A clinical breast exam by your physician is recommended on an annual basis and results should be correlated with mammographic findings. MG Screening Mammo w CAD Bilateral CC and MLO view(s) were taken. Prior study comparison: August 23, 2013, bilateral MG diagnostic mammo w CAD NADINE. December 20, 2010, bilateral digital screening mammo w/CAD. The breast tissue is heterogeneously dense. This may lower the sensitivity of mammography. There is no discrete abnormality. ASSESSMENT: Negative, BI-RAD 1 RECOMMENDATION: Routine screening mammogram of both breasts in 1 year.
== END | disposition home or self-care (01) ==
LOC: RADMAMWWP 16:51
PROVIDERS: ATTEND Internal Medicine
DX: Z12.31 Encounter for screening mammogram for malignant neoplasm of breast (principal)
CPT/HCPCS: 77067

== ENCOUNTER 2017-05-14 08:24 | Emergency (ER) | payer MEDICARE ==
[2017-05-14] MEDS ORDERED: ONDANSETRON 4 MG/2 ML VIAL IVP STA (08:55)
[2017-05-14] MEDS ORDERED: SODIUM CHLORIDE 0.9% 1,000 ML IV STA (08:55)
[2017-05-14] MEDS ORDERED: DICYCLOMINE 10 MG/ML 2 ML AMP IM STA (08:56)
--- NOTE | 2017-05-14 09:00 | ED ---
General Adult HPI - General Chief complaint: GI Bleed Stated complaint: Abdominal pain Time Seen by Provider: 05/14/17 08:48 Source: patient, EMS, RN notes reviewed Mode of arrival: EMS Limitations: no limitations - History of Present Illness Initial comments: Patient's a 51-year-old female who presents emergency room today by EMS, with chief complaint of symptoms of nausea vomiting diarrhea that started last night approximately 8 PM. She does admit that she's had similar symptoms in the past. Does admit to a history of diverticulitis. Patient states that she noticed small amount of streaking blood in the stool after some watery loose bowel movements. She states she had approximately 8 bowel movements on some blood on the last few. Denies any signs of blood in the emesis. She denies any other complaints. Patient denies any recent fever, chills, shortness of breath, chest pain, back pain, numbness or tingling, dysuria or hematuria, constipation, headaches or visual changes, or any other complaints. - Related Data Home Medications Medication Instructions Recorded Confirmed Aspirin 81 mg PO DAILY 02/17/14 05/14/17 Budesonide-Formot 160-4.5 Mcg 2 puff INHALATION RT-BID 02/17/14 05/14/17 [Symbicort 160-4.5 Mcg Inhaler] Divalproex ER [Depakote ER] 1,000 mg PO HS 02/17/14 05/14/17 Ipratropium-Albuterol Nebulize 3 ml INHALATION QID 02/17/14 05/14/17 [Duoneb 0.5 mg-3 mg/3 ml Soln] Lisinopril [Zestril] 5 mg PO QAM 02/17/14 05/14/17 Carvedilol [Coreg] 3.125 mg PO BID 04/04/16 05/14/17 FLUoxetine HCL [PROzac] 20 mg PO QAM 12/23/16 05/14/17 Furosemide [Lasix] 40 mg PO BID 12/23/16 05/14/17 Loratadine [Claritin] 10 mg PO DAILY PRN 02/18/17 05/14/17 Dicyclomine [Bentyl] 10 mg PO TID 05/14/17 05/14/17 Previous Rx's Medication Instructions Recorded Albuterol Inhaler [Ventolin Hfa 1 - 2 puff INHALATION Q4-6H PRN #1 12/23/16 Inhaler] inhaler Omeprazole 40 mg PO DAILY #20 capsule. 01/06/17 Dicyclomine [Bentyl] 20 mg PO QID #20 tablet 05/14/17 Ondansetron Odt [Zofran ODT] 4 mg PO Q8HR PRN #20 tab 05/14/17 Allergies Allergy/AdvReac Type Severity Reaction Status Date / Time cephalexin monohydrate AdvReac Itching Verified 05/14/17 08:57 [From Keflex] haloperidol [From Haldol] AdvReac Extrapyramidal Verified 05/14/17 08:57 Symptoms Review of Systems ROS Statement: Those systems with pertinent positive or pertinent negative responses have been documented in the HPI. ROS Other: All systems not noted in ROS Statement are negative. Past Medical History Past Medical History: COPD, Liver Disease, Myocardial Infarction ([place]) Additional Past Medical History / Comment(s): abdominal pain,UTIs,fatty liver, chronic sinus problems,steroids Dec 2016 Last Myocardial Infarction Date:: 12-31-2010 History of Any Multi-Drug Resistant Organisms: None Reported Past Surgical History: Section, Tubal Ligation, Uterine Ablation Additional Past Surgical History / Comment(s): x2,hemorrhoidectomy Past Anesthesia/Blood Transfusion Reactions: Motion Sickness Past Psychological History: Anxiety, Bipolar, Depression Smoking Status: Current every day smoker Past Alcohol Use History: None Reported Past Drug Use History: None Reported - Past Family History Mother Family Medical History: COPD, Myocardial Infarction ([place]) Father Family Medical History: Myocardial Infarction ([place]) General Exam - General Exam Comments Initial Comments: General: The patient is awake and alert, in no distress, and does not appear acutely ill. Eye: Pupils are equal, round and reactive to light, extra-ocular movements are intact. No nystagmus. There is normal conjunctiva bilaterally. No signs of icterus. Ears, nose, mouth and throat: There are moist mucous membranes and no oral lesions. Neck: The neck is supple, there is no tenderness or JVD. Cardiovascular: There is a regular rate and rhythm. No murmur, rub or gallop is appreciated. Respiratory: Lungs are clear to auscultation, respirations are non-labored, breath sounds are equal. No wheezes, stridor, rales, or rhonchi. Gastrointestinal: Normal appearance of the abdomen. Normal bowel sounds. Soft on palpation. Patient does have tenderness left lower quadrant. No rebound tenderness. No Guarding. No CVA tenderness. Musculoskeletal: Normal ROM, no tenderness. Strength 5/5. Sensation intact. Pulses equal bilaterally 2+. Neurological: A&O x 3. CN II-XII intact, There are no obvious motor or sensory deficits. Coordination appears grossly intact. Speech is normal. Skin: Skin is warm and dry and no rashes or lesions are noted. Psychiatric: Cooperative, appropriate mood & affect, normal judgment. Limitations: no limitations Course Vital Signs 05/14/17 05/14/17 05/14/17 08:25 09:35 10:40 Temperature 98.2 F Pulse Rate 80 89 91 Respiratory 18 16 20 Rate Blood Pressure 97/55 95/51 93/49 O2 Sat by Pulse 98 98 98 Oximetry 05/14/17 05/14/17 12:43 13:12 Temperature Pulse Rate 88 91 Respiratory 18 18 Rate Blood Pressure 99/55 98/55 O2 Sat by Pulse 98 98 Oximetry Medical Decision Making - Medical Decision Making Patient's labs reviewed and does show a 17,000 white count. Remaining labs are unremarkable. Patient's blood pressure is been somewhat hypotensive here in the emergency room 90s over 50s. Patient states she always runs low. She states is new. Denies any lightheadedness or dizziness. She states she is feeling better here in the emergency room has been able to tolerate by mouth liquids. Patient does admit Feeling better. Was given Bentyl along with Zofran and IV fluids. Patient's CT of the abdomen reveals a fibroid uterus. No other acute abnormalities. Guaiac-positive. Does admit to a history of hemorrhoids. Has not had any bloody bowel movement here in the ER. Results were discussed with the patient. She feels comfortable being discharged at this time. Will be discharged with Zofran and Bentyl to go home with. Advised return if symptoms increase worsen. Advised follow-up the family doctor next 2 days. - Lab Data Result diagrams: 05/14/17 08:30 05/14/17 12:15 Lab Results 05/14/17 05/14/17 05/14/17 Range/Units 08:30 11:00 11:00 WBC 17.3 H (3.8-10.6) k/uL RBC 5.33 (3.80-5.40) m/uL Hgb 16.3 H (11.4-16.0) gm/dL Hct 52.2 H (34.0-46.0) % MCV 97.9 (80.0-100.0) fL MCH 30.6 (25.0-35.0) pg MCHC 31.2 (31.0-37.0) g/dL RDW 12.3 (11.5-15.5) % Plt Count 293 (150-450) k/uL Neutrophils % 91 % Lymphocytes % 4 % Monocytes % 4 % Eosinophils % 2 % Basophils % 0 % Neutrophils # 15.7 H (1.3-7.7) k/uL Lymphocytes # 0.6 L (1.0-4.8) k/uL Monocytes # 0.6 (0-1.0) k/uL Eosinophils # 0.3 (0-0.7) k/uL Basophils # 0.0 (0-0.2) k/uL Sodium (137-145) mmol/L Potassium (3.5-5.1) mmol/L Chloride (98-107) mmol/L Carbon Dioxide (22-30) mmol/L Anion Gap mmol/L BUN (7-17) mg/dL Creatinine (0.52-1.04) mg/dL Est GFR (MDRD) Af Amer (>60 ml/min/1.73 sqM) Est GFR (MDRD) Non-Af (>60 ml/min/1.73 sqM) Glucose (74-99) mg/dL Calcium (8.4-10.2) mg/dL Total Bilirubin (0.2-1.3) mg/dL AST (14-36) U/L ALT (9-52) U/L Alkaline Phosphatase (38-126) U/L Total Protein (6.3-8.2) g/dL Albumin (3.5-5.0) g/dL Lipase (23-300) U/L Stool Occult Blood Positive H (Negative) C. difficile (EIA) Intrp Negative (Negative) 05/14/17 Range/Units 12:15 WBC (3.8-10.6) k/uL RBC (3.80-5.40) m/uL Hgb (11.4-16.0) gm/dL Hct (34.0-46.0) % MCV (80.0-100.0) fL MCH (25.0-35.0) pg MCHC (31.0-37.0) g/dL RDW (11.5-15.5) % Plt Count (150-450) k/uL Neutrophils % % Lymphocytes % % Monocytes % % Eosinophils % % Basophils % % Neutrophils # (1.3-7.7) k/uL Lymphocytes # (1.0-4.8) k/uL Monocytes # (0-1.0) k/uL Eosinophils # (0-0.7) k/uL Basophils # (0-0.2) k/uL Sodium 143 (137-145) mmol/L Potassium 5.0 (3.5-5.1) mmol/L Chloride 108 H (98-107) mmol/L Carbon Dioxide 27 (22-30) mmol/L Anion Gap 8 mmol/L BUN 18 H (7-17) mg/dL Creatinine 0.85 (0.52-1.04) mg/dL Est GFR (MDRD) Af Amer >60 (>60 ml/min/1.73 sqM) Est GFR (MDRD) Non-Af >60 (>60 ml/min/1.73 sqM) Glucose 110 H (74-99) mg/dL Calcium 9.1 (8.4-10.2) mg/dL Total Bilirubin 0.3 (0.2-1.3) mg/dL AST 17 (14-36) U/L ALT 24 (9-52) U/L Alkaline Phosphatase 43 (38-126) U/L Total Protein 6.6 (6.3-8.2) g/dL Albumin 3.9 (3.5-5.0) g/dL Lipase 79 (23-300) U/L Stool Occult Blood (Negative) C. difficile (EIA) Intrp (Negative) Disposition Clinical Impression: Nausea vomiting and diarrhea Disposition: HOME SELF-CARE Condition: Good Instructions: Acute Diarrhea (ED) Additional Instructions: Please use medication as discussed. Please follow-up with family doctor in the next 2 days of symptoms have not improved. Please return to emergency room if the symptoms increase or worsen or for any other concerns. Prescriptions: Dicyclomine [Bentyl] 20 mg PO QID #20 tablet Ondansetron Odt [Zofran ODT] 4 mg PO Q8HR PRN #20 tab PRN Reason: Nausea Referrals: Matthew Valdovinos NPC [REFERRING] - 1-2 days Time of Disposition: 15:36
--- NOTE | 2017-05-14 09:46 | XR ---
EXAMINATION TYPE: XR KUB DATE OF EXAM: 05/14/2017 COMPARISON: NONE HISTORY: Pain TECHNIQUE: Single supine KUB image of the abdomen is obtained FINDINGS: Small bowel demonstrates no evidence for dilatation or air fluid levels. Gas and fecal material is seen in non-distended colon. Rectosigmoid region of sutures noted. No convincing evidence for pneumoperitoneum. Probable phlebolith right hemipelvis. The lung bases are clear. The osseous structures are intact. IMPRESSION: 1. Overall nonobstructive bowel gas pattern.
[2017-05-14 12:04] LABS: Basophils % (A) 0 %; Eosinophils # (A) 0.3 k/uL (0-0.7); Eosinophils % (A) 2 %; HCT 52.2 % (34.0-46.0); HGB 16.3 gm/dL (11.4-16.0); Lymphocytes # (A) 0.6 k/uL (1.0-4.8); Lymphocytes % (A) 4 %; MCH 30.6 pg (25.0-35.0); MCHC 31.2 g/dL (31.0-37.0); MCV 97.9 fL (80.0-100.0); Mean Platelet Volume 7.8; Monocytes # (A) 0.6 k/uL (0-1.0); Monocytes % (A) 4 %; Neutrophils # (A) 15.7 k/uL (1.3-7.7); Neutrophils % (A) 91 %; Platelet Count 293 k/uL (150-450); RBC 5.33 m/uL (3.80-5.40); RDW 12.3 % (11.5-15.5); WBC 17.3 k/uL (3.8-10.6)
[2017-05-14] MEDS ORDERED: RX INFO: IV CONTRAST WAS GIVEN 1 EACH MISC MISCELLANE PRN (12:26)
[2017-05-14 12:44] VITALS: RESP 18
[2017-05-14 12:50] LABS: ALT 24 U/L (9-52); AST 17 U/L (14-36); Albumin 3.9 g/dL (3.5-5.0); Alkaline Phosphatase 43 U/L (38-126); Anion Gap 8 mmol/L; Blood Urea Nitrogen 18 mg/dL (7-17); Calcium 9.1 mg/dL (8.4-10.2); Carbon Dioxide 27 mmol/L (22-30); Chloride 108 mmol/L (98-107); Glucose 110 mg/dL (74-99); Lipase 79 U/L (23-300); Sodium 143 mmol/L (137-145); Total Bilirubin 0.3 mg/dL (0.2-1.3); Total Protein 6.6 g/dL (6.3-8.2)
--- NOTE | 2017-05-14 14:54 | CT ---
EXAMINATION TYPE: CT abdomen pelvis w con DATE OF EXAM: 05/14/2017 COMPARISON: NONE HISTORY: Generalized pain with nausea. vomiting and blood in the stool CT DLP: 471.6 mGycm CONTRAST: CT scan of the abdomen and pelvis is performed without Oral Contrast and with IV Contrast, patient in jected with 100 mL of Omnipaque 300. FINDINGS: LUNG BASES-: No visible nodule. No infiltrate. LIVER/GB: No calcified gallstones. No space occupying hepatic lesion. Biliary tree is of normal ca liber. PANCREAS: No inflammation. No distinct mass. SPLEEN: No splenic enlargement. No lesion seen. ADRENALS: No nodule. No thickening. KIDNEYS/BLADDER: No hydronephrosis. No nephrolithiasis. No distinct renal mass. Urinary bladder g rossly unremarkable. BOWEL: Fluid distended stomach, small bowel and large bowel with bowel wall thickening of the small b owel suggestive of gastroenteritis. No evidence for abscess or free air. The appendix is not clearly visualized. Postoperative changes rectosigmoid region. GENITAL ORGANS: There is a mass involving the left uterine body measuring approximately 3.5 cm in gr eatest dimension. This may reflect leiomyoma can be confirmed with ultrasound. No ovarian masses are detected. LYMPH NODES: No greater than 1cm abdominal or pelvic lymph nodes are appreciated. AORTA: No significant abnormality. OSSEOUS STRUCTURES: No significant abnormality is seen. OTHER: No significant additional abnormality is seen. IMPRESSION: 1. Correlate for gastroenteritis. 2. Probable adenomyomatosis changes in uterus. This can be confirmed with ultrasound.
[2017-05-14 15:50] VITALS: BP 110/60; PULSE 90; TEMP 99.2
[2017-05-22 16:40] LABS: Cryptosporidium parvum Not detected (Not detected); Isospora belli Not detected (Not detected); Microsporidium Not detected (Not detected); Routine Ova and Parasites Not detected
== END 2017-05-14 15:49 | disposition home or self-care (01) ==
LOC: EC 08:24
DX: R11.2 Nausea with vomiting, unspecified (principal); R19.7 Diarrhea, unspecified; D25.9 Leiomyoma of uterus, unspecified; J44.9 Chronic obstructive pulmonary disease, unspecified; I25.2 Old myocardial infarction; F31.9 Bipolar disorder, unspecified; F41.9 Anxiety disorder, unspecified; F17.200 Nicotine dependence, unspecified, uncomplicated; Z87.19 Personal history of other diseases of the digestive system; Z88.1 Allergy status to other antibiotic agents; Z88.8 Allergy status to other drugs, medicaments and biological substances; Z79.51 Long term (current) use of inhaled steroids; Z79.82 Long term (current) use of aspirin; Z79.899 Other long term (current) drug therapy
CPT/HCPCS: 36415; 80053; 83690; 85025; 82272; 87324; 87177; 87207; 87209; 87045; 87046; 74018; 74177; 99285; 96372; 96374; 96361; J0500; J2405; Q9967

== ENCOUNTER → 2017-05-25 | Outpatient (CLI) | payer MEDICARE ==
--- NOTE | 2017-05-25 11:50 | CT ---
EXAMINATION TYPE: CT sinus wo con DATE OF EXAM: 05/25/2017 COMPARISON: NONE HISTORY: Facial pain and pressure CT DLP: 575 mGycm CONTRAST: None The paranasal sinuses are examined in the axial plane at 2 mm thick sections. Reconstructed images i n the coronal plane were obtained. There is dental amalgam scatter artifact The maxillary sinuses are clear. The ethmoid air cells are clear. The sphenoid sinuses are clear. The frontal sinuses are clear. There is a left neida bullosa The septum is evaluated. There is septal deviation to the right. The ostiomeatal units are patent. IMPRESSIONS: 1. No suspicious paranasal sinus abnormality.
== END ==
LOC: RADCTMAIN 11:13
PROVIDERS: ATTEND Internal Medicine
DX: J32.9 Chronic sinusitis, unspecified (principal)
CPT/HCPCS: 70486

== ENCOUNTER 2017-12-01 19:51 | Emergency (ER) | payer MEDICARE, OTHER ==
[2017-12-01 20:31] LABS: Appearance,Urine Cloudy (Clear); Bilirubin,Urine Negative (Negative); Blood,Urine Small (Negative); Color,Urine Yellow; Glucose,Urine (UA) Negative (Negative); Ketones,Urine Negative (Negative); Leukocyte Esterase,Urine Large (Negative); Nitrite,Urine Negative (Negative); Protein,Urine 1+ (Negative); RBC,Urine 6 /hpf (0-5); Specific Gravity,Urine 1.013 (1.001-1.035); Squamous Epithelial Cell,Urine 65 /hpf (0-4); Urobilinogen,Urine <2.0 mg/dL (<2.0); WBC,Urine 58 /hpf (0-5)
[2017-12-01 20:58] LABS: Basophils # (A) 0.1 k/uL (0-0.2); Basophils % (A) 0 %; Eosinophils # (A) 0.3 k/uL (0-0.7); Eosinophils % (A) 3 %; HCT 32.7 % (34.0-46.0); Lymphocytes # (A) 2.7 k/uL (1.0-4.8); Lymphocytes % (A) 23 %; MCH 31.5 pg (25.0-35.0); MCHC 33.7 g/dL (31.0-37.0); MCV 93.3 fL (80.0-100.0); Mean Platelet Volume 6.7; Monocytes # (A) 0.5 k/uL (0-1.0); Monocytes % (A) 4 %; Neutrophils # (A) 8.2 k/uL (1.3-7.7); Neutrophils % (A) 69 %; Platelet Count 294 k/uL (150-450); RDW 13.1 % (11.5-15.5)
[2017-12-01] MEDS ORDERED: ONDANSETRON 4 MG/2 ML VIAL IVP STA (21:07)
[2017-12-01] MEDS ORDERED: KETOROLAC 30 MG/ML 1 ML VIAL IVP STA (21:07)
[2017-12-01] MEDS ORDERED: SODIUM CHLORIDE 0.9% 1,000 ML IV ONE (21:07)
[2017-12-01 21:08] LABS: ALT 31 U/L (9-52); AST 21 U/L (14-36); Albumin 3.2 g/dL (3.5-5.0); Alkaline Phosphatase 53 U/L (38-126); Amylase 43 U/L (30-110); Anion Gap 6 mmol/L; Blood Urea Nitrogen 13 mg/dL (7-17); Calcium 8.6 mg/dL (8.4-10.2); Carbon Dioxide 29 mmol/L (22-30); Chloride 101 mmol/L (98-107); Glucose 95 mg/dL (74-99); Lipase 112 U/L (23-300); Sodium 136 mmol/L (137-145); Total Bilirubin 0.2 mg/dL (0.2-1.3); Total Protein 5.7 g/dL (6.3-8.2)
--- NOTE | 2017-12-01 22:13 | CT ---
EXAMINATION TYPE: CT abdomen pelvis wo con DATE OF EXAM: 12/01/2017 COMPARISON: 05/14/2017 HISTORY: Back pain and urinary urgency and pain. CT DLP: 382.2 mGycm Automated exposure control for dose reduction was used. TECHNIQUE: Helical acquisition of images was performed from the lung bases through the pelvis. FINDINGS: Lung bases are clear. There is no pleural effusion. Heart size is normal. Liver spleen pancreas appea r normal. Bile ducts are not dilated. Gallbladder is contracted. There is no adrenal mass. There is left-sided hydronephrosis. There is some vascular calcification. I see no definite ureteral calculus. Kidneys have normal size. There is no retroperitoneal adenopathy. There is no intestinal wall thickening. There are no dilated loops. Bladder distends smoothly. Uteru s is anteverted. Lumbar spine is intact. IMPRESSION: THERE IS MILD LEFT-SIDED HYDRONEPHROSIS. THERE IS ALSO SLIGHT FULLNESS OF THE RIGHT RENAL COLLECTING SYSTEM. RENAL COLLECTING SYSTEMS ARE INCREASED COMPARED TO OLD EXAM. NO OBSTRUCTING CALCULUS IS SEEN . THIS COULD RELATE TO PARTIAL OBSTRUCTION OR PYELONEPHRITIS. NO SIGN OF APPENDICITIS.
--- NOTE | 2017-12-01 22:26 | ED ---
Back Pain HPI - General Chief Complaint: Back Pain/Injury Stated Complaint: back pain Time Seen by Provider: 12/01/17 20:30 Source: patient Limitations: no limitations - History of Present Illness Initial Comments: 52-year-old female patient presents to the emergency department today for evaluation of right sided flank pain that radiates across her back to the left. Patient states she has been having some urinary frequency and suprapubic pressure. Patient denies any fevers or chills. Patient denies any hematuria. Patient has been eating and drinking without difficulty. States she did have one loose bowel movement today. Denies any fevers or chills. Patient denies any recent rash, shortness breath, chest pain, constipation, numbness, tingling , dizziness, weakness, headache, visual changes, or any other complaints. Patient does have history of kidney stones. - Related Data Home Medications Medication Instructions Recorded Confirmed Aspirin 81 mg PO DAILY 02/17/14 12/01/17 Budesonide-Formot 160-4.5 Mcg 2 puff INHALATION RT-BID 02/17/14 12/01/17 [Symbicort 160-4.5 Mcg Inhaler] Divalproex ER [Depakote ER] 1,000 mg PO HS 02/17/14 12/01/17 Ipratropium-Albuterol Nebulize 3 ml INHALATION RT-QID 02/17/14 12/01/17 [Duoneb 0.5 mg-3 mg/3 ml Soln] Lisinopril [Zestril] 5 mg PO QAM 02/17/14 12/01/17 Carvedilol [Coreg] 3.125 mg PO BID 04/04/16 12/01/17 FLUoxetine HCL [PROzac] 20 mg PO QAM 12/23/16 12/01/17 Furosemide [Lasix] 40 mg PO BID 12/23/16 12/01/17 Dicyclomine [Bentyl] 10 mg PO TID 05/14/17 12/01/17 Albuterol Inhaler [Ventolin Hfa 1 - 2 puff INHALATION Q4-6H PRN 12/01/17 Inhaler] [id number] [id number] 2 tab PO Q6HR PRN 12/01/17 12/01/17 [Excedrin] Fluticasone Nasal [place] [Flonase 1 spray EA NOSTRIL DAILY PRN 12/01/17 12/01/17 Nasal [place]] Ipratropium/Albuterol Sulfate 2 puff INHALATION RT-QID PRN 12/01/17 12/01/17 [Combivent Respimat Inhaler] Levocetirizine Dihydrochloride 5 mg PO DAILY PRN 12/01/17 12/01/17 [Xyzal] Previous Rx's Medication Instructions Recorded Omeprazole 40 mg PO DAILY #20 capsule. 01/06/17 Sulfamethoxazole/Trimethoprim 1 each PO BID #20 tablet 12/01/17 [Bactrim DS 800-160 mg] Allergies Allergy/AdvReac Type Severity Reaction Status Date / Time cephalexin monohydrate AdvReac Itching Verified 12/01/17 20:35 [From Keflex] haloperidol [From Haldol] AdvReac Extrapyramidal Verified 12/01/17 20:35 Symptoms Review of Systems ROS Statement: Those systems with pertinent positive or pertinent negative responses have been documented in the HPI. ROS Other: All systems not noted in ROS Statement are negative. Past Medical History Past Medical History: COPD, Liver Disease, Myocardial Infarction ([place]) Additional Past Medical History / Comment(s): abdominal pain,UTIs,fatty liver, chronic sinus problems,steroids Dec 2016 Last Myocardial Infarction Date:: 12-31-2010 History of Any Multi-Drug Resistant Organisms: None Reported Past Surgical History: Section, Tubal Ligation, Uterine Ablation Additional Past Surgical History / Comment(s): x2,hemorrhoidectomy Past Anesthesia/Blood Transfusion Reactions: Motion Sickness Past Psychological History: Anxiety, Bipolar, Depression Smoking Status: Current every day smoker Past Alcohol Use History: None Reported Past Drug Use History: None Reported - Past Family History Mother Family Medical History: COPD, Myocardial Infarction ([place]) Father Family Medical History: Myocardial Infarction ([place]) General Exam Limitations: no limitations General appearance: alert, in no apparent distress, other (This is a well- developed, well-nourished adult female patient in no acute distress. Vital signs upon presentation are temperature 98.7F, pulse 75, respirations 18, blood pressure 122/66, pulse ox 99% on room air.) Eye exam: Present: normal appearance, PERRL, EOMI. Absent: scleral icterus, conjunctival injection, periorbital swelling ENT exam: Present: normal exam, normal oropharynx, mucous membranes moist Respiratory exam: Present: normal lung sounds bilaterally. Absent: respiratory distress, wheezes, rales, rhonchi, stridor Cardiovascular Exam: Present: regular rate, normal rhythm, normal heart sounds. Absent: systolic murmur, diastolic murmur, rubs, gallop, clicks GI/Abdominal exam: Present: soft, normal bowel sounds. Absent: distended, tenderness, guarding, rebound, rigid Back exam: Present: normal inspection, CVA tenderness (R) (Mild), CVA tenderness (L) (Mild) Neurological exam: Present: alert, oriented X3, CN II-XII intact Psychiatric exam: Present: normal affect, normal mood Skin exam: Present: warm, dry, intact, normal color. Absent: rash Course Vital Signs 12/01/17 19:53 Temperature 98.7 F Pulse Rate 75 Respiratory 18 Rate Blood Pressure 122/66 O2 Sat by Pulse 99 Oximetry Medical Decision Making - Medical Decision Making 52-year-old female patient presents to emergency permit today for evaluation of bilateral flank pain. Patient is also experiencing some suprapubic pressure and dysuria. Labs reviewed and did reveal white blood cell count of 12. Urinalysis showed 1+ protein, small amount of blood, large leukocyte esterase, 6 red blood cells, 58 white blood cells, [address] abdomen and pelvis without contrast was obtained as patient does have a history of kidney stone, this did show some left-sided hydronephrosis and increase in size of the right renal collecting system. No evidence of stone. Given patient 's symptoms and history was like she is expressing pyelonephritis. We'll treat her for this with Bactrim. She is instructed to follow-up with her primary care physician for recheck in 1-2 days. Return parameters were discussed in detail. She verbalizes understanding and agrees with this plan. Urine sent for culture. - Lab Data Result diagrams: 12/01/17 20:45 12/01/17 20:45 Lab Results 12/01/17 12/01/17 12/01/17 Range/Units 19:55 20:45 20:45 WBC 12.0 H (3.8-10.6) k/uL RBC 3.50 L (3.80-5.40) m/uL Hgb 11.0 L (11.4-16.0) gm/dL Hct 32.7 L (34.0-46.0) % MCV 93.3 (80.0-100.0) fL MCH 31.5 (25.0-35.0) pg MCHC 33.7 (31.0-37.0) g/dL RDW 13.1 (11.5-15.5) % Plt Count 294 (150-450) k/uL Neutrophils % 69 % Lymphocytes % 23 % Monocytes % 4 % Eosinophils % 3 % Basophils % 0 % Neutrophils # 8.2 H (1.3-7.7) k/uL Lymphocytes # 2.7 (1.0-4.8) k/uL Monocytes # 0.5 (0-1.0) k/uL Eosinophils # 0.3 (0-0.7) k/uL Basophils # 0.1 (0-0.2) k/uL Sodium 136 L (137-145) mmol/L Potassium 4.0 (3.5-5.1) mmol/L Chloride 101 (98-107) mmol/L Carbon Dioxide 29 (22-30) mmol/L Anion Gap 6 mmol/L BUN 13 (7-17) mg/dL Creatinine 0.60 (0.52-1.04) mg/dL Est GFR (CKD-EPI)AfAm >90 (>60 ml/min/1.73 sqM) Est GFR (CKD-EPI)NonAf >90 (>60 ml/min/1.73 sqM) Glucose 95 (74-99) mg/dL Calcium 8.6 (8.4-10.2) mg/dL Total Bilirubin 0.2 (0.2-1.3) mg/dL AST 21 (14-36) U/L ALT 31 (9-52) U/L Alkaline Phosphatase 53 (38-126) U/L Total Protein 5.7 L (6.3-8.2) g/dL Albumin 3.2 L (3.5-5.0) g/dL Amylase 43 (30-110) U/L Lipase 112 (23-300) U/L Urine Color Yellow Urine Appearance Cloudy H (Clear) Urine pH 7.0 (5.0-8.0) Ur Specific [place] 1.013 (1.001-1.035) Urine Protein 1+ H (Negative) Urine Glucose (UA) Negative (Negative) Urine Ketones Negative (Negative) Urine Blood Small H (Negative) Urine Nitrite Negative (Negative) Urine Bilirubin Negative (Negative) Urine Urobilinogen <2.0 (<2.0) mg/dL Ur Leukocyte Esterase Large H (Negative) Urine RBC 6 H (0-5) /hpf Urine WBC 58 H (0-5) /hpf Ur Squamous Epith Cells 65 H (0-4) /hpf - Radiology Data Radiology results: report reviewed, image reviewed CT abdomen and pelvis without contrast was obtained. Report was reviewed in its entirety. Impression by Dr. Villasenor shows mild left-sided hydronephrosis. There is also slight fullness of the right renal collecting system. Renal collecting systems are increased compared to old exam. No obstructive calculus is seen. This could relate to partial obstruction or pyelonephritis. No sign of appendicitis. Disposition Clinical Impression: Pyelonephritis Disposition: HOME SELF-CARE Condition: Good Instructions: Kidney Infection (ED) Additional Instructions: Increase fluids, especially water. The antibiotic prescription and full. Follow-up with your primary care physician for recheck in 1-2 days. Return here immediately for any new, worsening, or concerning symptoms. Prescriptions: Sulfamethoxazole/Trimethoprim [Bactrim DS 800-160 mg] 1 each PO BID #20 tablet Is patient prescribed a controlled substance at d/c from ED?: No Referrals: Caroline Brady MD [Primary Care Provider] - 1-2 days Time of Disposition: 22:44
[2017-12-01] MEDS ORDERED: SULFAMETH-TMP DS STARTER PACK 2 TAB BTL PO STA (22:44)
[2017-12-01 23:44] VITALS: BP 123/62; PULSE 73; RESP 20; TEMP 98.1
== END 2017-12-01 23:51 | disposition home or self-care (01) ==
LOC: EC 19:51
DX: N13.6 Pyonephrosis (principal); J44.9 Chronic obstructive pulmonary disease, unspecified; I25.2 Old myocardial infarction; F31.9 Bipolar disorder, unspecified; F41.9 Anxiety disorder, unspecified; F17.200 Nicotine dependence, unspecified, uncomplicated; Z88.1 Allergy status to other antibiotic agents; Z88.8 Allergy status to other drugs, medicaments and biological substances; Z79.51 Long term (current) use of inhaled steroids; Z79.82 Long term (current) use of aspirin; Z79.899 Other long term (current) drug therapy
CPT/HCPCS: 36415; 80053; 82150; 83690; 85025; 81001; 74176; 99284; 96374; 96375; 96361 ×2; J2405; J1885

== ENCOUNTER → 2018-02-15 | Outpatient (CLI) | payer MEDICARE, OTHER ==
[2018-02-16 10:40] LABS: Anion Gap 10.3 mmol/L (4.00-12.00); Carbon Dioxide 24.7 mmol/L (21.6-31.8); Potassium 3.8 mmol/L (3.5-5.5)
== END | disposition home or self-care (01) ==
LOC: LABWHC1 16:06
PROVIDERS: ATTEND Nurse Practitioner Family
DX: E87.6 Hypokalemia (principal); M79.10 Myalgia, unspecified site
CPT/HCPCS: 36415; 80051

== ENCOUNTER 2018-03-13 15:51 | Observation (INO) | payer MEDICARE, OTHER ==
[2018-03-13] MEDS ORDERED: SODIUM CHLORIDE 0.9% 1,000 ML IV STA (16:25)
[2018-03-13] MEDS ORDERED: IPRATROPIUM-ALBUTEROL 3 ML NEB INHALATION STA ×2 (16:25→18:04)
[2018-03-13] MEDS ORDERED: methylPREDNISolone SOD SUCCI 125 MG/2 ML VIAL IV STA (16:25)
--- NOTE | 2018-03-13 16:32 | ED ---
SOB HPI - General Chief Complaint: Shortness of Breath Stated Complaint: Cough Time Seen by Provider: 03/13/18 16:15 Source: patient, RN notes reviewed Mode of arrival: ambulatory Limitations: no limitations - History of Present Illness Initial Comments: This is a 52-year-old female history of long-time smoking who may have been diagnosed with either asthma or COPD who states for the past several weeks she' s had shortness of breath cough with some phlegm last and she has a fevers chills and sweats woke up soaking wet she states no overt chest pain who presents with complaints of exertional dyspnea and shortness of breath she also had some rhinorrhea. She states she was not feeling well ever since exposure to a grandchild. No other complaints at this time. MD Complaint: shortness of breath - Related Data Home Medications Medication Instructions Recorded Confirmed Aspirin 81 mg PO DAILY 02/17/14 03/13/18 Budesonide-Formot 160-4.5 Mcg 2 puff INHALATION RT-BID 02/17/14 03/13/18 [Symbicort 160-4.5 Mcg Inhaler] Divalproex ER [Depakote ER] 1,000 mg PO HS 02/17/14 03/13/18 Ipratropium-Albuterol Nebulize 3 ml INHALATION RT-QID 02/17/14 03/13/18 [Duoneb 0.5 mg-3 mg/3 ml Soln] Lisinopril [Zestril] 5 mg PO QAM 02/17/14 03/13/18 FLUoxetine HCL [PROzac] 20 mg PO QAM 12/23/16 03/13/18 Furosemide [Lasix] 40 mg PO BID 12/23/16 03/13/18 Dicyclomine [Bentyl] 10 mg PO TID 05/14/17 03/13/18 Albuterol Inhaler [Ventolin Hfa 1 - 2 puff INHALATION RT-Q4H PRN 12/01/17 Inhaler] Levocetirizine Dihydrochloride 5 mg PO DAILY PRN 12/01/17 03/13/18 [Xyzal] Ascorbic Acid [Vitamin C] 500 mg PO DAILY 03/13/18 03/13/18 Carvedilol [Coreg] 3.125 mg PO BID 03/13/18 03/13/18 Cholecalciferol [Vitamin D3] 1,000 unit PO DAILY 03/13/18 03/13/18 Ibuprofen [Motrin] 800 mg PO DAILY 03/13/18 03/13/18 Lissie-3 Fatty Acids/Fish Oil [Fish 1 cap PO DAILY 03/13/18 03/13/18 Oil 1,000 mg Softgel] Previous Rx's Medication Instructions Recorded Omeprazole 40 mg PO DAILY #20 capsule. 01/06/17 Allergies Allergy/AdvReac Type Severity Reaction Status Date / Time cephalexin monohydrate AdvReac Itching Verified 03/13/18 16:32 [From Keflex] haloperidol [From Haldol] AdvReac Extrapyramidal Verified 03/13/18 16:32 Symptoms Review of Systems ROS Statement: Those systems with pertinent positive or pertinent negative responses have been documented in the HPI. ROS Other: All systems not noted in ROS Statement are negative. Past Medical History Past Medical History: COPD, Liver Disease, Myocardial Infarction ([place]) Additional Past Medical History / Comment(s): abdominal pain,UTIs,fatty liver, chronic sinus problems,steroids Dec 2016 Last Myocardial Infarction Date:: 12-31-2010 History of Any Multi-Drug Resistant Organisms: None Reported Past Surgical History: Section, Tubal Ligation, Uterine Ablation Additional Past Surgical History / Comment(s): x2,hemorrhoidectomy Past Anesthesia/Blood Transfusion Reactions: Motion Sickness Past Psychological History: Anxiety, Bipolar, Depression Smoking Status: Current every day smoker Past Alcohol Use History: None Reported Past Drug Use History: None Reported - Past Family History Mother Family Medical History: COPD, Myocardial Infarction ([place]) Father Family Medical History: Myocardial Infarction ([place]) General Exam - General Exam Comments Initial Comments: This is a well developed well-nourished awake alert when x3 female Limitations: no limitations General appearance: alert, in no apparent distress Head exam: Present: atraumatic, normocephalic, normal inspection Eye exam: Present: normal appearance, PERRL, EOMI. Absent: scleral icterus, conjunctival injection, periorbital swelling ENT exam: Present: normal exam, mucous membranes moist Neck exam: Present: normal inspection. Absent: tenderness, meningismus, lymphadenopathy Respiratory exam: Present: wheezes, decreased breath sounds. Absent: respiratory distress, rales, rhonchi, stridor Cardiovascular Exam: Present: regular rate, normal rhythm, normal heart sounds. Absent: systolic murmur, diastolic murmur, rubs, gallop, clicks GI/Abdominal exam: Present: soft, normal bowel sounds. Absent: distended, tenderness, guarding, rebound, rigid Extremities exam: Present: normal inspection, full ROM, normal capillary refill. Absent: tenderness, pedal edema, joint swelling, calf tenderness Back exam: Present: normal inspection Neurological exam: Present: alert, oriented X3, CN II-XII intact Psychiatric exam: Present: normal affect, normal mood Skin exam: Present: warm, dry, intact, normal color. Absent: rash Course Vital Signs 03/13/18 03/13/18 03/13/18 15:58 17:02 17:14 Temperature 98.3 F Pulse Rate 73 73 78 Respiratory 16 Rate Blood Pressure 111/64 O2 Sat by Pulse 97 Oximetry 03/13/18 17:27 Temperature 98.8 F Pulse Rate 80 Respiratory 18 Rate Blood Pressure 110/72 O2 Sat by Pulse 98 Oximetry - Reevaluation(s) Reevaluation #1: 03/13/18 18:10 Smoking: I did discuss smoking and the need to this. With the patient this included discussing risks and benefits thereof. Patient states she is interested in stopping. The total conversation lasting 3.1 minutes. Reevaluation #2: 03/13/18 18:11 Reevaluation patient reveals minimal improvement in her ability to breathe she still has diffuse wheezing with decreased breath sounds. This is in spite of aggressive early treatment. Medical Decision Making - Lab Data Result diagrams: 03/13/18 16:30 03/13/18 16:30 Lab Results 03/13/18 03/13/18 03/13/18 Range/Units 16:30 16:30 16:30 WBC 6.1 (3.8-10.6) k/uL RBC 3.90 (3.80-5.40) m/uL Hgb 11.6 (11.4-16.0) gm/dL Hct 35.5 (34.0-46.0) % MCV 91.2 (80.0-100.0) fL MCH 29.8 (25.0-35.0) pg MCHC 32.7 (31.0-37.0) g/dL RDW 13.0 (11.5-15.5) % Plt Count 260 (150-450) k/uL Neutrophils % 62 % Lymphocytes % 24 % Monocytes % 9 % Eosinophils % 1 % Basophils % 1 % Neutrophils # 3.7 (1.3-7.7) k/uL Lymphocytes # 1.5 (1.0-4.8) k/uL Monocytes # 0.6 (0-1.0) k/uL Eosinophils # 0.1 (0-0.7) k/uL Basophils # 0.0 (0-0.2) k/uL PT (9.0-12.0) sec INR (<1.2) APTT (22.0-30.0) sec D-Dimer (<0.60) mg/L FEU Sodium 135 L (137-145) mmol/L Potassium 4.0 (3.5-5.1) mmol/L Chloride 100 (98-107) mmol/L Carbon Dioxide 28 (22-30) mmol/L Anion Gap 7 mmol/L BUN 12 (7-17) mg/dL Creatinine 0.63 (0.52-1.04) mg/dL Est GFR (CKD-EPI)AfAm >90 (>60 ml/min/1.73 sqM) Est GFR (CKD-EPI)NonAf >90 (>60 ml/min/1.73 sqM) Glucose 100 H (74-99) mg/dL Calcium 9.1 (8.4-10.2) mg/dL Magnesium 1.7 (1.6-2.3) mg/dL Total Bilirubin 0.2 (0.2-1.3) mg/dL AST 20 (14-36) U/L ALT 27 (9-52) U/L Alkaline Phosphatase 38 (38-126) U/L Total Creatine Kinase 107 (30-135) U/L CK-MB (CK-2) 2.0 (0.0-2.4) ng/mL CK-MB (CK-2) Rel Index 1.9 Troponin I <0.012 (0.000-0.034) ng/mL NT-Pro-B Natriuret Pep pg/mL Total Protein 6.3 (6.3-8.2) g/dL Albumin 3.7 (3.5-5.0) g/dL Influenza Type A RNA (Not Detectd) Influenza Type B (PCR) (Not Detectd) 03/13/18 03/13/18 03/13/18 Range/Units 16:30 16:30 16:30 WBC (3.8-10.6) k/uL RBC (3.80-5.40) m/uL Hgb (11.4-16.0) gm/dL Hct (34.0-46.0) % MCV (80.0-100.0) fL MCH (25.0-35.0) pg MCHC (31.0-37.0) g/dL RDW (11.5-15.5) % Plt Count (150-450) k/uL Neutrophils % % Lymphocytes % % Monocytes % % Eosinophils % % Basophils % % Neutrophils # (1.3-7.7) k/uL Lymphocytes # (1.0-4.8) k/uL Monocytes # (0-1.0) k/uL Eosinophils # (0-0.7) k/uL Basophils # (0-0.2) k/uL PT 9.9 (9.0-12.0) sec INR 0.9 (<1.2) APTT 26.8 (22.0-30.0) sec D-Dimer <0.17 (<0.60) mg/L FEU Sodium (137-145) mmol/L Potassium (3.5-5.1) mmol/L Chloride (98-107) mmol/L Carbon Dioxide (22-30) mmol/L Anion Gap mmol/L BUN (7-17) mg/dL Creatinine (0.52-1.04) mg/dL Est GFR (CKD-EPI)AfAm (>60 ml/min/1.73 sqM) Est GFR (CKD-EPI)NonAf (>60 ml/min/1.73 sqM) Glucose (74-99) mg/dL Calcium (8.4-10.2) mg/dL Magnesium (1.6-2.3) mg/dL Total Bilirubin (0.2-1.3) mg/dL AST (14-36) U/L ALT (9-52) U/L Alkaline Phosphatase (38-126) U/L Total Creatine Kinase (30-135) U/L CK-MB (CK-2) (0.0-2.4) ng/mL CK-MB (CK-2) Rel Index Troponin I (0.000-0.034) ng/mL NT-Pro-B Natriuret Pep 151 pg/mL Total Protein (6.3-8.2) g/dL Albumin (3.5-5.0) g/dL Influenza Type A RNA Detected H (Not Detectd) Influenza Type B (PCR) Not Detected (Not Detectd) - EKG Data -: EKG Interpreted by Me EKG shows normal: sinus rhythm (Sinus rhythm with rate 65. We'll 136 QRS duration 78 daily since QTC 396/411 this is a normal-appearing EKG) Critical Care Time Critical Care Time: Yes Critical Care Time: 31 minutes of critical care time which includes initial presentation with history physical labs x-rays reevaluation patient several occasions discuss with the main physician admission orders and documentation of the above. Disposition Clinical Impression: Acute exacerbation of chronic obstructive airways disease, Adult respiratory distress syndrome, Influenza A Disposition: ADMITTED IP TO THIS HOSP Condition: Serious Referrals: Caroline Brady MD [Primary Care Provider] - 1-2 days
[2018-03-13 16:49] LABS: Basophils % (A) 1 %; Eosinophils # (A) 0.1 k/uL (0-0.7); Eosinophils % (A) 1 %; HCT 35.5 % (34.0-46.0); HGB 11.6 gm/dL (11.4-16.0); Lymphocytes # (A) 1.5 k/uL (1.0-4.8); Lymphocytes % (A) 24 %; MCH 29.8 pg (25.0-35.0); MCHC 32.7 g/dL (31.0-37.0); MCV 91.2 fL (80.0-100.0); Mean Platelet Volume 6.6; Monocytes # (A) 0.6 k/uL (0-1.0); Monocytes % (A) 9 %; Neutrophils # (A) 3.7 k/uL (1.3-7.7); Neutrophils % (A) 62 %; Platelet Count 260 k/uL (150-450); WBC 6.1 k/uL (3.8-10.6)
--- NOTE | 2018-03-13 16:55 | XR ---
EXAMINATION TYPE: XR chest 2V DATE OF EXAM: 03/13/2018 COMPARISON: 10/21/2017 HISTORY: Cough and sore throat TECHNIQUE: Frontal and lateral views of the chest are obtained. FINDINGS: Heart and mediastinum are normal. Lungs are clear. Diaphragm is normal. Bony thorax appear s normal. IMPRESSION: Normal chest. No change.
[2018-03-13 16:59] LABS: ALT 27 U/L (9-52); AST 20 U/L (14-36); Albumin 3.7 g/dL (3.5-5.0); Alkaline Phosphatase 38 U/L (38-126); Anion Gap 7 mmol/L; Blood Urea Nitrogen 12 mg/dL (7-17); Calcium 9.1 mg/dL (8.4-10.2); Carbon Dioxide 28 mmol/L (22-30); Chloride 100 mmol/L (98-107); Glucose 100 mg/dL (74-99); Magnesium 1.7 mg/dL (1.6-2.3); Sodium 135 mmol/L (137-145); Total Bilirubin 0.2 mg/dL (0.2-1.3); Total Protein 6.3 g/dL (6.3-8.2)
[2018-03-13 17:01] LABS: INR 0.9 (<1.2); Partial Thromboplastin Time 26.8 sec (22.0-30.0); Prothrombin Time 9.9 sec (9.0-12.0)
[2018-03-13 17:02] LABS: D-Dimer <0.17 mg/L FEU (<0.60)
[2018-03-13 17:09] LABS: Creatine Kinase 107 U/L (30-135)
[2018-03-13 17:22] LABS: Troponin I <0.012 ng/mL (0.000-0.034)
[2018-03-13] MEDS ORDERED: OSELTAMIVIR 75 MG CAP PO STA (18:04)
[2018-03-13] MEDS ORDERED: MAGNESIUM SULFATE-D5W PMX 1 GM in DEXTROSE/WATER 1 100ML.BAG IVPB ONE (18:04)
[2018-03-13] MEDS ORDERED: LORATADINE 10 MG TAB PO PRN (18:15)
[2018-03-13 19:24] VITALS: BMI 27.3
[2018-03-13] MEDS ORDERED: ACETAMINOPHEN TAB 325 MG TAB PO PRN (19:46)
[2018-03-13] MEDS: FUROSEMIDE 40 MG TAB PO SCH (20:26)
[2018-03-13] MEDS: CARVEDILOL 3.125 MG TAB PO SCH (20:57)
[2018-03-13] MEDS: DICYCLOMINE 10 MG CAP PO SCH (20:57)
[2018-03-13] MEDS: DIVALPROEX ER 500 MG TAB.ER.24H PO SCH (20:58)
[2018-03-13] MEDS ORDERED: ONDANSETRON 4 MG/2 ML VIAL IVP PRN (21:00)
[2018-03-13] MEDS: IPRATROPIUM-ALBUTEROL 3 ML NEB INHALATION SCH ×2 (23:29→23:46)
[2018-03-13] MEDS: methylPREDNISolone SOD SUCCI 125 MG/2 ML VIAL IV SCH (23:31)
[2018-03-14] MEDS: IPRATROPIUM-ALBUTEROL 3 ML NEB INHALATION SCH ×6 (04:17→23:24)
[2018-03-14] MEDS: methylPREDNISolone SOD SUCCI 125 MG/2 ML VIAL IV SCH ×4 (05:50→23:47)
[2018-03-14] MEDS: OSELTAMIVIR 75 MG CAP PO SCH ×2 (08:56→23:48)
[2018-03-14] MEDS: CHOLECALCIFEROL 1,000 UNIT TAB PO SCH (08:56)
[2018-03-14] MEDS: ASCORBIC ACID 500 MG TAB PO SCH (08:56)
[2018-03-14] MEDS: IBUPROFEN 800 MG TAB PO SCH (08:56)
[2018-03-14] MEDS: FLUoxetine HCL 20 MG CAP PO SCH (08:57)
[2018-03-14] MEDS: DICYCLOMINE 10 MG CAP PO SCH ×3 (08:57→21:51)
[2018-03-14] MEDS: LISINOPRIL 5 MG TAB PO SCH (08:57)
[2018-03-14] MEDS: ASPIRIN 81 MG PO SCH (08:58)
[2018-03-14] MEDS: PANTOPRAZOLE 40 MG TABLET PO SCH (08:58)
[2018-03-14] MEDS: NICOTINE 21MG/24HR PATCH TRANSDERM SCH (08:59)
[2018-03-14] MEDS: CARVEDILOL 3.125 MG TAB PO SCH ×2 (08:59→17:08)
[2018-03-14] MEDS: FUROSEMIDE 40 MG TAB PO SCH ×2 (08:59→17:08)
[2018-03-14] MEDS ORDERED: NON-FORMULARY DRUG (Omega-3 Fatty Acids/Fish Oil [Fish Oil 1,000 Mg Softgel] 1 CAP) PO SCH (09:00)
--- NOTE | 2018-03-14 09:54 | P.CNPUL ---
History of Present Illness Consult date: 03/14/18 Requesting physician: Virginia Frazier Reason for consult: dyspnea, cough, COPD, other Chief complaint: Acute COPD exacerbation related to influenza A infection History of present illness: This is a 52-year-old white female patient of Dr. Brady, past medical history of severe COPD with a baseline FEV1 of 1.26 L or 47% predicted, Dr. Muir cardiomyopathy, diverticular disease, IBS, hiatal hernia, Mnire's disease, presented to the emergency department on 03/13/2018 for evaluation of increasing shortness of breath, cough, phlegm production, wheezing. Patient had been sick for the last 3 weeks, and and initially was febrile, had severe headaches, body aches. She did have a sick contact, one of the children in the house was similar symptoms. Patient is a current smoker, currently down to less than half a pack a day, carries [id number] smoking history. Dr. Giles in the pulmonary office, not oxygen dependent at baseline. Chest x- ray showed normal chest. Currently patient is afebrile, no longer having any body aches, but still very short of breath. Influenza screen was positive for influenza A. No leukocytosis, electrolytes and renal profile are unremarkable. Troponin negative 1, proBNP is within normal limits at 151. Review of Systems All systems: negative Constitutional: Denies chills, Denies fever Eyes: denies blurred vision, denies pain Ears, nose, mouth and throat: Denies headache, Denies sore throat Cardiovascular: Denies chest pain, Denies shortness of breath Respiratory: Reports congestion, Reports dyspnea, Denies cough Gastrointestinal: Denies abdominal pain, Denies diarrhea, Denies nausea, Denies vomiting Genitourinary: Denies dysuria, Denies hematuria Musculoskeletal: Denies myalgias Integumentary: Denies pruritus, Denies rash Neurological: Denies numbness, Denies weakness Psychiatric: Denies anxiety, Denies depression Endocrine: Denies fatigue, Denies weight change Past Medical History Past Medical History: COPD, Liver Disease, [place] ([place]) Additional Past Medical History / Comment(s): abdominal pain,UTIs,fatty liver, chronic sinus problems,steroids Dec 2016. Diverticular disease, Vinears disease Last Myocardial Infarction Date:: 12-31-2010 History of Any Multi-Drug Resistant Organisms: None Reported Past Surgical History: Section, Tubal Ligation, Uterine Ablation Additional Past Surgical History / Comment(s): x2,hemorrhoidectomy Past Anesthesia/Blood Transfusion Reactions: Motion Sickness Smoking Status: Current every day smoker - Past Family History Mother Family Medical History: COPD, Myocardial Infarction ([place]) Father Family Medical History: [place]ocardial Infarction ([place]) Medications and Allergies Home Medications Medication Instructions Recorded Confirmed Type Aspirin 81 mg PO DAILY 02/17/14 03/13/18 History Budesonide-Formot 160-4.5 Mcg 2 puff INHALATION RT-BID 02/17/14 03/13/18 History [Symbicort 160-4.5 Mcg Inhaler] Divalproex ER [Depakote ER] 1,000 mg PO HS 02/17/14 03/13/18 History Ipratropium-Albuterol Nebulize 3 ml INHALATION RT-QID 02/17/14 03/13/18 History [Duoneb 0.5 mg-3 mg/3 ml Soln] Lisinopril [Zestril] 5 mg PO QAM 02/17/14 03/13/18 History FLUoxetine HCL [PROzac] 20 mg PO QAM 12/23/16 03/13/18 History Furosemide [Lasix] 20 mg PO BID 12/23/16 03/13/18 History Omeprazole 40 mg PO DAILY #20 capsule. 01/06/17 03/13/18 Rx Dicyclomine [Bentyl] 10 mg PO TID 05/14/17 03/13/18 History Albuterol Inhaler [Ventolin Hfa 1 - 2 puff INHALATION RT-Q4H PRN 12/01/17 History Inhaler] Levocetirizine Dihydrochloride 5 mg PO DAILY PRN 12/01/17 03/13/18 History [Xyzal] Ascorbic Acid [Vitamin C] 500 mg PO DAILY 03/13/18 03/13/18 History Carvedilol [Coreg] 3.125 mg PO BID 03/13/18 03/13/18 History Cholecalciferol [Vitamin D3] 1,000 unit PO DAILY 03/13/18 03/13/18 History Ibuprofen [Motrin] 800 mg PO DAILY 03/13/18 03/13/18 History [place]-3 Fatty Acids/Fish Oil [Fish 1 cap PO DAILY 03/13/18 03/13/18 History Oil 1,000 mg Softgel] Allergies Allergy/AdvReac Type Severity Reaction Status Date / Time cephalexin monohydrate AdvReac Itching Verified 03/13/18 19:11 [From Keflex] haloperidol [From Haldol] AdvReac Extrapyramidal Verified 03/13/18 19:11 Symptoms Physical Exam Vitals: Vital Signs Temp Pulse Pulse Resp BP BP Pulse Ox 03/14/18 08:18 72 03/14/18 08:06 72 03/14/18 08:00 98.7 F 70 16 117/70 92 L 03/14/18 04:31 76 03/14/18 04:18 76 03/14/18 04:00 18 03/14/18 00:00 97.9 F 65 18 98/56 96 03/13/18 23:57 76 03/13/18 23:46 76 03/13/18 19:33 18 03/13/18 19:09 98.3 F 67 18 101/67 97 03/13/18 18:55 98.0 F 90 18 105/70 98 03/13/18 17:27 98.8 F 80 18 110/72 98 03/13/18 17:14 78 03/13/18 17:02 73 03/13/18 15:58 98.3 F 73 16 111/64 97 Intake and Output 03/13/18 03/14/18 03/14/18 22:59 06:59 14:59 Other: Voiding Method Toilet # Voids 1 Weight 68 kg GENERAL EXAM: Alert, pleasant 52-year-old white female comfortable in no apparent distress. HEAD: Normocephalic/atraumatic. EYES: Normal reaction of pupils, equal size. Conjunctiva pink, sclera white. NOSE: Clear with pink turbinates. THROAT: No erythema or exudates. NECK: No masses, no JVD, no thyroid enlargement, no adenopathy. CHEST: No chest wall deformity. Symmetrical expansion. LUNGS: Lung sounds are diminished bilaterally, with prolongation of the expiratory phase and end expiratory wheezing on forced exhale maneuver CVS: Regular rate and rhythm, normal S1 and S2, no gallops, no murmurs, no rubs ABDOMEN: Soft, nontender. No hepatosplenomegaly, normal bowel sounds, no guarding or rigidity. EXTREMITIES: No clubbing, no edema, no cyanosis, 2+ pulses and upper and lower extremities. MUSCULOSKELETAL: Muscle strength and tone normal. SPINE: No scoliosis or deformity SKIN: No rashes CENTRAL NERVOUS SYSTEM: Alert and oriented -3. No focal deficits, tone is normal in all 4 extremities. PSYCHIATRIC: Alert and oriented -3. Appropriate affect. Intact judgment and insight. - Constitutional General appearance: no acute distress - Neck Neck: no lymphadenopathy - Respiratory Respiratory: bilateral: wheezing - Gastrointestinal General gastrointestinal: no organomegaly, soft, no tenderness Results - Laboratory Findings CBC and BMP: 03/13/18 16:30 03/13/18 16:30 PT/INR, D-dimer PT 9.9 sec (9.0-12.0) 03/13/18 16:30 INR 0.9 (<1.2) 03/13/18 16:30 D-Dimer <0.17 mg/L FEU (<0.60) 03/13/18 16:30 Abnormal lab findings: Abnormal Labs 03/13/18 03/13/18 16:30 16:30 Sodium 135 L Glucose 100 H Influenza Type A RNA Detected H - Diagnostic Findings Chest x-ray: report reviewed, image reviewed Additional studies: EKG reviewed Assessment and Plan Plan: Assessment: #1. Acute exacerbation of COPD related to influenza A infection #2. Severe COPD, gold stage III, baseline FEV1 of 1.26 L or 47% of predicted #3. Chronic and ongoing nicotine dependence, carries [id number] smoking history #4. History of Takotsubo cardiomyopathy #5. Bipolar disorder #6. Diverticular disease #7. Mnire's disease #8. IBS #9. Colonic polyps Plan: Continue current medical treatment, continue IV steroids, nebulized bronchodilators. Chest x-ray was reviewed by Dr. Torre, showed no acute findings. Collect sputum culture, will add Pulmicort and Perforomist, may consider adding antibiotics, continue to follow I performed a history & physical examination of the patient and discussed their management with my nurse practitioner, Faiza Tolbert. I reviewed the nurse practitioner's note and agree with the documented findings and plan of care. Lung sounds are positive for diminished breath sounds with end expiratory wheezing . The findings and the impression was discussed with the patient. I attest to the documentation by the nurse practitioner. Time with Patient: Greater than 30
[2018-03-14] MEDS: AZITHROMYCIN 500 MG TAB PO SCH (13:06)
[2018-03-14] MEDS: FORMOTEROL FUMARATE 20 MCG/2 ML NEBU INHALATION SCH (19:24)
[2018-03-14] MEDS: BUDESONIDE 1 MG/2 ML NEBU INHALATION SCH (19:24)
[2018-03-14 21:05] LABS: Glucose,Whole Blood 167 mg/dL (75-99)
[2018-03-14] MEDS: DIVALPROEX ER 500 MG TAB.ER.24H PO SCH (21:51)
--- NOTE | 2018-03-14 23:20 | P.HPIM ---
History of Present Illness H&P Date: 03/14/18 Chief Complaint: shortness of breath myalgia, This is a 52-year-old white female patient of Dr. Brady,Dr Giles. 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 no documented fevers but has chills She did have a sick contact, one of thegrandkids at home has uri symptoms. Patient is a current smoker, currently down to less than half a pack a day, carries 35-pack- year smoking history. in the emergency room Chest x-ray showed normal chest. influenza pcr positive for type A. No leukocytosis, electrolytes and renal profile are unremarkable. Troponin negative 1, proBNP is within normal limits at 151. Patient is currently being treated for copd exacerbation and inluenza A, tamiflu and iv steroid, nebulized treatments, consult with Dr Jacobson. Review of Systems Constitutional: Reports anorexia, Reports chills, Reports chronic headaches, Reports fever Ears, nose, mouth and throat: Reports as per HPI, Reports nasal congestion, Reports sinus pain, Reports sore throat, Denies ant. neck pain, Denies bleeding gums, Denies dental pain, Denies dysphagia, Denies epistaxis, Denies headache, Denies hoarseness, Denies mouth pain, Denies nasal discharge, Denies neck fullness/pressure, Denies neck lump, Denies nose pain, Denies odynophagia, Denies post-nasal drip, Denies sinus pressure, Denies swelling in mouth, Denies swelling in throat, Denies vertigo, Denies voice changes Cardiovascular: Reports as per HPI, Reports dyspnea on exertion, Reports shortness of breath, Denies chest pain, Denies claudication, Denies decreased exercise tolerance, Denies edema, Denies high blood pressure, Denies irregular heart beat, Denies leg edema, Denies lightheadedness, Denies orthopnea, Denies palpitations, Denies paroxysmal nocturnal dyspnea, Denies phlebitis, Denies rapid heart beat, Denies syncope Respiratory: Reports cough, Reports cough with sputum, Reports dyspnea, Reports pleurisy, Denies as per HPI, Denies congestion, Denies excessive sputum, Denies hemoptysis, Denies home oxygen, Denies pain, Denies pain on inspiration, Denies respiratory infections, Denies sleep apnea, Denies snoring, Denies wheezing Gastrointestinal: Reports as per HPI, Denies abdominal pain, Denies belching, Denies bloating, Denies BRBPR, Denies change in bowel habits, Denies coffee ground emesis, Denies constipation, Denies diarrhea, Denies dyspepsia, Denies early satiety, Denies excessive gas, Denies heartburn, Denies hematemesis, Denies hematochezia, Denies indigestion, Denies jaundice, Denies lactose intolerance, Denies loss of appetite, Denies melena, Denies nausea, Denies vomiting Genitourinary: Reports as per HPI, Denies abnormal vaginal bleeding, Denies decreased libido, Denies difficulty conceiving, Denies difficulty voiding, Denies dysmenorrhea, Denies dyspareunia, Denies dysuria, Denies flank pain, Denies genital sores, Denies hematuria, Denies hot flashes, Denies incomplete emptying, Denies kidney stones, Denies menorrhagia, Denies mixed incontinence, Denies nocturia, Denies pelvic pain, Denies post void dribbling, Denies , Denies prolapse symptoms, Denies stress incontinence, Denies urge incontinence , Denies urgency, Denies urinary frequency, Denies vaginal discharge, Denies vaginal dryness, Denies vaginal itching, Denies vaginal odor Menstruation: Reports as per HPI Musculoskeletal: Reports as per HPI, Reports muscle weakness, Reports myalgias Integumentary: Reports as per HPI, Denies acne, Denies boils, Denies brittle nails, Denies change in hair/nails, Denies color changes, Denies darkening of skin, Denies depigmentation, Denies dryness, Denies foot/leg ulcers, Denies growths, Denies hirsutism, Denies lesions, Denies onychomycosis, Denies pruritus , Denies rash, Denies sores, Denies striae, Denies unusual bruising, Denies wounds Neurological: Reports as per HPI, Denies aphasia, Denies ataxia, Denies balance difficulties, Denies burning pain, Denies change in mentation, Denies change in smell/taste, Denies change in speech, Denies confusion, Denies convulsions, Denies double vision, Denies gait dysfunction, Denies head injury, Denies headaches, Denies hearing difficulties, Denies lack of coordination, Denies loss of vision, Denies memory loss, Denies migraines, Denies motor disturbance, Denies numbness, Denies paralysis, Denies paresthesias, Denies seizures, Denies sensory deficit, Denies spasticity, Denies syncope, Denies tic, Denies tingling , Denies transient paralysis, Denies tremors, Denies vertigo, Denies weakness, Denies visual changes Psychiatric: Reports as per HPI Endocrine: Reports as per HPI, Denies cold intolerance, Denies deepening of the voice, Denies excessive sweating, Denies excessive thirst, Denies fatigue, Denies flushing, Denies heat intolerance, Denies high blood sugars, Denies increase in ring/shoe/hat size, Denies low blood sugars, Denies nocturia, Denies palpitations, Denies polydipsia, Denies polyphagia, Denies polyuria, Denies proptosis, Denies recent glucocorticoid use, Denies thyroid mass, Denies weight change Hematologic/Lymphatic: Reports as per HPI Allergic/Immunologic: Reports as per HPI, Denies allergic rhinitis, Denies anaphylaxis, Denies angioedema, Denies gluten intolerance, Denies persistent infections, Denies seasonal allergies, Denies urticaria, Denies wheezing Past Medical History Past Medical History: COPD, Liver Disease, Myocardial Infarction ([place]) Additional Past Medical History / Comment(s): abdominal pain,UTIs,fatty liver, chronic sinus problems,steroids Dec 2016. Diverticular disease, Vinears disease Last Myocardial Infarction Date:: 12-31-2010 History of Any Multi-Drug Resistant Organisms: None Reported Past Surgical History: Section, Tubal Ligation, Uterine Ablation Additional Past Surgical History / Comment(s): x2,hemorrhoidectomy Past Anesthesia/Blood Transfusion Reactions: Motion Sickness Smoking Status: Current every day smoker - Past Family History Mother Family Medical History: COPD, Myocardial Infarction ([place]) Father Family Medical History: Myocardial Infarction ([place]) Medications and Allergies Home Medications Medication Instructions Recorded Confirmed Type Aspirin 81 mg PO DAILY 02/17/14 03/13/18 History Budesonide-Formot 160-4.5 Mcg 2 puff INHALATION RT-BID 02/17/14 03/13/18 History [Symbicort 160-4.5 Mcg Inhaler] Divalproex ER [Depakote ER] 1,000 mg PO HS 02/17/14 03/13/18 History Ipratropium-Albuterol Nebulize 3 ml INHALATION RT-QID 02/17/14 03/13/18 History [Duoneb 0.5 mg-3 mg/3 ml Soln] Lisinopril [Zestril] 5 mg PO QAM 02/17/14 03/13/18 History FLUoxetine HCL [PROzac] 20 mg PO QAM 12/23/16 03/13/18 History Furosemide [Lasix] 20 mg PO BID 12/23/16 03/13/18 History Omeprazole 40 mg PO DAILY #20 capsule.dr 01/06/17 03/13/18 Rx Dicyclomine [Bentyl] 10 mg PO TID 05/14/17 03/13/18 History Albuterol Inhaler [Ventolin Hfa 1 - 2 puff INHALATION RT-Q4H PRN 12/01/17 History Inhaler] Levocetirizine Dihydrochloride 5 mg PO DAILY PRN 12/01/17 03/13/18 History [Xyzal] Ascorbic Acid [Vitamin C] 500 mg PO DAILY 03/13/18 03/13/18 History Carvedilol [Coreg] 3.125 mg PO BID 03/13/18 03/13/18 History Cholecalciferol [Vitamin D3] 1,000 unit PO DAILY 03/13/18 03/13/18 History Ibuprofen [Motrin] 800 mg PO DAILY 03/13/18 03/13/18 History [place]-3 Fatty Acids/Fish Oil [Fish 1 cap PO DAILY 03/13/18 03/13/18 History Oil 1,000 mg Softgel] Allergies Allergy/AdvReac Type Severity Reaction Status Date / Time cephalexin monohydrate AdvReac Itching Verified 03/13/18 19:11 [From Keflex] haloperidol [From Haldol] AdvReac Extrapyramidal Verified 03/13/18 19:11 Symptoms Physical Exam Vitals: Vital Signs Temp Pulse Pulse Resp BP BP Pulse Ox 03/14/18 08:18 72 03/14/18 08:06 72 03/14/18 08:00 98.7 F 70 16 117/70 92 L 03/14/18 04:31 76 03/14/18 04:18 76 03/14/18 04:00 18 03/14/18 00:00 97.9 F 65 18 98/56 96 03/13/18 23:57 76 03/13/18 23:46 76 03/13/18 19:33 18 03/13/18 19:09 98.3 F 67 18 101/67 97 03/13/18 18:55 98.0 F 90 18 105/70 98 03/13/18 17:27 98.8 F 80 18 110/72 98 03/13/18 17:14 78 03/13/18 17:02 73 03/13/18 15:58 98.3 F 73 16 111/64 97 Intake and Output 03/13/18 03/14/18 03/14/18 22:59 06:59 14:59 Other: Voiding Method Toilet # Voids 1 Weight 68 kg - Constitutional General appearance: cooperative, no acute distress - EENT Eyes: EOMI, PERRLA ENT: NA/AT, normal oropharynx - Neck Neck: normal ROM Thyroid: bilateral: normal size - Respiratory Respiratory: bilateral: CTA, negative: diminished, dullness, rales, rhonchi, wheezing, prolonged expiration, prolonged inspiration - Cardiovascular Rhythm: regular Heart sounds: normal: S1, S2 Abnormal Heart Sounds: no systolic murmur, no diastolic murmur, no rub, no S3 Gallop, no S4 Gallop, no click, no other - Gastrointestinal General gastrointestinal: normal bowel sounds, soft - Integumentary Integumentary: normal, normal turgor - Neurologic Neurologic: CNII-XII intact - Musculoskeletal Musculoskeletal: gait normal, strength equal bilaterally - Psychiatric Psychiatric: A&O x's 3, appropriate affect, intact judgment & insight Results CBC & Chem 7: 03/13/18 16:30 03/13/18 16:30 Labs: Abnormal Lab Results - Last 24 Hours (Table) 03/13/18 03/13/18 Range/Units 16:30 16:30 Sodium 135 L (137-145) mmol/L Glucose 100 H (74-99) mg/dL Influenza Type A RNA Detected H (Not Detectd) Laboratory Results WBC 6.1 k/uL (3.8-10.6) 03/13/18 16:30 RBC 3.90 m/uL (3.80-5.40) 03/13/18 16:30 Hgb 11.6 gm/dL (11.4-16.0) 03/13/18 16:30 Hct 35.5 % (34.0-46.0) 03/13/18 16:30 MCV 91.2 fL (80.0-100.0) 03/13/18 16:30 MCH 29.8 pg (25.0-35.0) 03/13/18 16:30 MCHC 32.7 g/dL (31.0-37.0) 03/13/18 16:30 RDW 13.0 % (11.5-15.5) 03/13/18 16:30 Plt Count 260 k/uL (150-450) 03/13/18 16:30 Neutrophils % 62 % 03/13/18 16:30 Lymphocytes % 24 % 03/13/18 16:30 Monocytes % 9 % 03/13/18 16:30 Eosinophils % 1 % 03/13/18 16:30 Basophils % 1 % 03/13/18 16:30 Neutrophils # 3.7 k/uL (1.3-7.7) 03/13/18 16:30 Lymphocytes # 1.5 k/uL (1.0-4.8) 03/13/18 16:30 Monocytes # 0.6 k/uL (0-1.0) 03/13/18 16:30 Eosinophils # 0.1 k/uL (0-0.7) 03/13/18 16:30 Basophils # 0.0 k/uL (0-0.2) 03/13/18 16:30 PT 9.9 sec (9.0-12.0) 03/13/18 16:30 INR 0.9 (<1.2) 03/13/18 16:30 APTT 26.8 sec (22.0-30.0) 12/15/18 16:30 D-Dimer <0.17 mg/L FEU (<0.60) 03/13/18 16:30 Sodium 135 mmol/L (137-145) L 03/13/18 16:30 Potassium 4.0 mmol/L (3.5-5.1) 03/13/18 16:30 Chloride 100 mmol/L (98-107) 03/13/18 16:30 Carbon Dioxide 28 mmol/L (22-30) 03/13/18 16:30 Anion Gap 7 mmol/L 03/13/18 16:30 BUN 12 mg/dL (7-17) 03/13/18 16:30 Creatinine 0.63 mg/dL (0.52-1.04) 03/13/18 16:30 Est GFR (CKD-EPI)AfAm >90 (>60 ml/min/1.73 sqM) 03/13/18 16:30 Est GFR (CKD-EPI)NonAf >90 (>60 ml/min/1.73 sqM) 03/13/18 16:30 Glucose 100 mg/dL (74-99) H 03/13/18 16:30 POC Glucose (mg/dL) 167 mg/dL (75-99) H 03/14/18 20:53 POC Glu [place] Bench ID Mar Snow 03/14/18 20:53 Calcium 9.1 mg/dL (8.4-10.2) 03/13/18 16:30 Magnesium 1.7 mg/dL (1.6-2.3) 03/13/18 16:30 Total Bilirubin 0.2 mg/dL (0.2-1.3) 03/13/18 16:30 AST 20 U/L (14-36) 03/13/18 16:30 ALT 27 U/L (9-52) 03/13/18 16:30 Alkaline Phosphatase 38 U/L (38-126) 03/13/18 16:30 Total Creatine Kinase 107 U/L (30-135) 03/13/18 16:30 CK-MB (CK-2) 2.0 ng/mL (0.0-2.4) 03/13/18 16:30 CK-MB (CK-2) Rel Index 1.9 03/13/18 16:30 Troponin I <0.012 ng/mL (0.000-0.034) 03/13/18 16:30 NT-Pro-B Natriuret Pep 151 pg/mL 03/13/18 16:30 Total Protein 6.3 g/dL (6.3-8.2) 03/13/18 16:30 Albumin 3.7 g/dL (3.5-5.0) 03/13/18 16:30 Influenza Type A RNA Detected (Not Detectd) H 03/13/18 16:30 Influenza Type B (PCR) Not Detected (Not Detectd) 03/13/18 16:30 Thrombosis Risk Factor Assmnt - DVT/VTE Prophylaxis DVT/VTE Prophylaxis: Low risk, early ambulation encouraged - Choose All That Apply Each Factor Represents 1 point: Age 41-60 years Thrombosis Risk Factor Assessment Total Risk Factor Score: 1 Thrombosis Risk Factor Assessment Level: Low Risk Assessment and Plan Plan: 1. Acute influenza A with COPD exacerbation, patient currently is followed by pulmonary as an outpatient, patient requires Tamiflu 75 mg twice a day as well as nebulized treatments, Solu-Medrol 60 mg every 6 hours, and O2 supplementation. 2. COPD exacerbation with severe Gold stage III, baseline FEV1 of 1.26 L or 47 % of predicted according to pulmonary 3. Chronic tobacco dependency, patient is not willing to quit at this time, influenza vaccine is up-to-date, pneumonia vaccine is up-to-date, tetanus vaccine is up-to-date, hepatitis panels up-to-date per patient 5. History of tach with suitable cardiomyopathy, with prior NH in 2010 5. History of Mnire's disease, inactive 7. History of colonoscopy with colon polyps, recommendation as per surveillance DVT prophylaxis GI prophylaxis
[2018-03-14] MEDS: INSULIN ASPART 100 UNIT/ML 1 ML 10 ML VIAL SQ SCH (23:47)
[2018-03-15] MEDS: IPRATROPIUM-ALBUTEROL 3 ML NEB INHALATION SCH ×3 (03:49→12:03)
[2018-03-15] MEDS: methylPREDNISolone SOD SUCCI 125 MG/2 ML VIAL IV SCH ×2 (06:20→13:37)
[2018-03-15 07:24] VITALS: BP 132/63; RESP 16; TEMP 98.2
[2018-03-15] MEDS ORDERED: INSULIN ASPART 100 UNIT/ML 1 ML 10 ML VIAL SQ SCH (07:30)
[2018-03-15 07:39] LABS: Glucose,Whole Blood 163 mg/dL (75-99)
[2018-03-15] MEDS: BUDESONIDE 1 MG/2 ML NEBU INHALATION SCH (08:14)
[2018-03-15] MEDS: FORMOTEROL FUMARATE 20 MCG/2 ML NEBU INHALATION SCH (08:14)
[2018-03-15] MEDS: FUROSEMIDE 40 MG TAB PO SCH (09:26)
[2018-03-15] MEDS: IBUPROFEN 800 MG TAB PO SCH (09:27)
[2018-03-15] MEDS: CHOLECALCIFEROL 1,000 UNIT TAB PO SCH (09:27)
[2018-03-15] MEDS: ASPIRIN 81 MG PO SCH (09:27)
[2018-03-15] MEDS: CARVEDILOL 3.125 MG TAB PO SCH (09:27)
[2018-03-15] MEDS: AZITHROMYCIN 500 MG TAB PO SCH (09:27)
[2018-03-15] MEDS: LISINOPRIL 5 MG TAB PO SCH (09:27)
[2018-03-15] MEDS: FLUoxetine HCL 20 MG CAP PO SCH (09:27)
[2018-03-15] MEDS: ASCORBIC ACID 500 MG TAB PO SCH (09:27)
[2018-03-15] MEDS: DICYCLOMINE 10 MG CAP PO SCH (09:28)
[2018-03-15] MEDS: OSELTAMIVIR 75 MG CAP PO SCH (09:28)
[2018-03-15] MEDS: INSULIN ASPART 100 UNIT/ML 1 ML 10 ML VIAL SQ SCH ×2 (09:28→13:23)
[2018-03-15] MEDS: PANTOPRAZOLE 40 MG TABLET PO SCH (09:28)
[2018-03-15] MEDS: NICOTINE 21MG/24HR PATCH TRANSDERM SCH (09:36)
[2018-03-15 11:47] LABS: Glucose,Whole Blood 145 mg/dL (75-99)
[2018-03-15 12:14] VITALS: PULSE 78
--- NOTE | 2018-03-15 13:13 | P.PN ---
Subjective Progress Note Date: 03/15/18 Principal diagnosis: Acute exacerbation of COPD related to influenza A infection This is a 52-year-old white female patient of Dr. Brady, past medical history of severe COPD with a baseline FEV1 of 1.26 L or 47% predicted, Dr. Muir cardiomyopathy, diverticular disease, IBS, hiatal hernia, Mnire's disease, presented to the emergency department on 03/13/2018 for evaluation of increasing shortness of breath, cough, phlegm production, wheezing. Patient had been sick for the last 3 weeks, and and initially was febrile, had severe headaches, body aches. She did have a sick contact, one of the children in the house was similar symptoms. Patient is a current smoker, currently down to less than half a pack a day, carries [id number] smoking history. Dr. Giles in the pulmonary office, not oxygen dependent at baseline. Chest x- ray showed normal chest. Currently patient is afebrile, no longer having any body aches, but still very short of breath. Influenza screen was positive for influenza A. No leukocytosis, electrolytes and renal profile are unremarkable. Troponin negative 1, proBNP is within normal limits at 151. On 03/15/2018 patient seen again in follow-up on medical surgical floor. She is calm and comfortable, in no acute distress, breathing easier today, no cough , no chest congestion. No body aches, she is afebrile. Lung sounds are clear on today's exam, no wheezing, no rhonchi or rales auscultated. Patient was started on Tamiflu and Zithromax and nebulized bronchodilators. IV Solu- Medrol. She is improving, Objective - Vital Signs Vital signs: Vital Signs Temp 98.2 F 03/15/18 07:23 Pulse 78 03/15/18 12:13 Resp 16 03/15/18 07:23 BP 132/63 03/15/18 07:23 Pulse Ox 94 L 03/15/18 07:23 Intake & Output 03/14/18 03/15/18 03/15/18 18:59 06:59 18:59 Other: Voiding Method Toilet # Voids 1 - Exam GENERAL EXAM: Alert, pleasant 52-year-old white female comfortable in no apparent distress. HEAD: Normocephalic/atraumatic. EYES: Normal reaction of pupils, equal size. Conjunctiva pink, sclera white. NOSE: Clear with pink turbinates. THROAT: No erythema or exudates. NECK: No masses, no JVD, no thyroid enlargement, no adenopathy. CHEST: No chest wall deformity. Symmetrical expansion. LUNGS: Lung sounds are clear, no rhonchi no wheezing noted CVS: Regular rate and rhythm, normal S1 and S2, no gallops, no murmurs, no rubs ABDOMEN: Soft, nontender. No hepatosplenomegaly, normal bowel sounds, no guarding or rigidity. EXTREMITIES: No clubbing, no edema, no cyanosis, 2+ pulses and upper and lower extremities. MUSCULOSKELETAL: Muscle strength and tone normal. SPINE: No scoliosis or deformity SKIN: No rashes CENTRAL NERVOUS SYSTEM: Alert and oriented -3. No focal deficits, tone is normal in all 4 extremities. PSYCHIATRIC: Alert and oriented -3. Appropriate affect. Intact judgment and insight. - Labs CBC & Chem 7: 03/13/18 16:30 03/13/18 16:30 Labs: Abnormal Lab Results - Last 24 Hours (Table) 03/14/18 03/15/18 03/15/18 Range/Units 20:53 07:27 11:35 POC Glucose (mg/dL) 167 H 163 H 145 H (75-99) mg/dL Assessment and Plan Plan: Assessment: #1. Acute exacerbation of COPD related to influenza A infection #2. Severe COPD, gold stage III, baseline FEV1 of 1.26 L or 47% of predicted #3. Chronic and ongoing nicotine dependence, carries [id number] smoking history #4. History of Takotsubo cardiomyopathy #5. Bipolar disorder #6. Diverticular disease #7. Mnire's disease #8. IBS #9. Colonic polyps Plan: Patient is doing much better, breathing easier, no wheezing, no chest congestion , she is afebrile, no body aches. No dyspnea. Patient responded well to inpatient treatment, from pulmonary perspective patient is stable for discharge home today she can finish outpatient course of oral antibiotics, Tamiflu, can go back on her maintenance inhalers and breathing treatments, follow-up with Dr. Giles in the office in one week. I performed a history & physical examination of the patient and discussed their management with my nurse practitioner, Faiza Tolbert. I reviewed the nurse practitioner's note and agree with the documented findings and plan of care. Lung sounds are positive for clear breath sounds. The findings and the impression was discussed with the patient. I attest to the documentation by the nurse practitioner. Time with Patient: Less than 30
--- NOTE | 2018-03-17 09:01 | P.DS ---
Providers Date of admission: 03/13/18 18:12 Expected date of discharge: 03/15/18 Attending physician: Virginia Frazier Consults: 03/13/18 18:12 Consult Physician Routine Consulting Provider: Carter Jacobson Consult Reason/Comments: COPD with exacerbation Do you want consulting provider notified?: Yes Primary care physician: [facility] Course: This is a 52-year-old white female patient of Dr. Brady,Dr Giles. 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 no documented fevers but has chills She did have a sick contact, one of thegrandkids at home has uri symptoms. Patient is a current smoker, currently down to less than half a pack a day, carries 35-pack- year smoking history. in the emergency room Chest x-ray showed normal chest. influenza pcr positive for type A. No leukocytosis, electrolytes and renal profile are unremarkable. Troponin negative 1, proBNP is within normal limits at 151. Patient is currently being treated for copd exacerbation and inluenza A, tamiflu and iv steroid, nebulized treatments, consult with Dr Jacobson. 03/15: Patient states that her breathing status is improved. She has been cleared for discharge from Dr. Crum. We will order an AeroChamber device for home. Patient will be discharged home today in stable condition. Discharge diagnoses: 1. Acute influenza A with COPD exacerbation 2. COPD exacerbation with severe Gold stage III, baseline FEV1 of 1.26 L or 47 % of predicted according to pulmonary 3. Chronic tobacco dependency 4. History of tach with ischemic cardiomyopathy, with prior SC in 2010 5. History of Mnire's disease, inactive 6. History of colonoscopy with colon polyps, recommendation as per surveillance Discharge plan: Home Impression and plan of care have been directed as dictated by the signing physician. Anne Menendez nurse practitioner acting as scribe for signing physician. Patient Condition at Discharge: Good Plan - Discharge Summary New Discharge Prescriptions: New Oseltamivir [Tamiflu] 75 mg PO Q12HR #6 cap Continue Lisinopril [Zestril] 5 mg PO QAM Budesonide-Formot 160-4.5 Mcg [Symbicort 160-4.5 Mcg Inhaler] 2 puff INHALATION RT-BID Aspirin 81 mg PO DAILY Ipratropium-Albuterol Nebulize [Duoneb 0.5 mg-3 mg/3 ml Soln] 3 ml INHALATION RT-QID Divalproex ER [Depakote ER] 1,000 mg PO HS FLUoxetine HCL [PROzac] 20 mg PO QAM Furosemide [Lasix] 20 mg PO BID Omeprazole 40 mg PO DAILY #20 capsule. Dicyclomine [Bentyl] 10 mg PO TID Albuterol Inhaler [Ventolin Hfa Inhaler] 1 - 2 puff INHALATION RT-Q4H PRN PRN Reason: Shortness Of Breath Levocetirizine Dihydrochloride [Xyzal] 5 mg PO DAILY PRN PRN Reason: Allergy Symptoms Carvedilol [Coreg] 3.125 mg PO BID [place]-3 Fatty Acids/Fish Oil [Fish Oil 1,000 mg Softgel] 1 cap PO DAILY Ibuprofen [Motrin] 800 mg PO DAILY Cholecalciferol [Vitamin D3] 1,000 unit PO DAILY Ascorbic Acid [Vitamin C] 500 mg PO DAILY Discharge Medication List Aspirin 81 mg PO DAILY 02/17/14 [History] Budesonide-Formot 160-4.5 Mcg [Symbicort 160-4.5 Mcg Inhaler] 2 puff INHALATION RT-BID 02/17/14 [History] Divalproex ER [Depakote ER] 1,000 mg PO HS 02/17/14 [History] Ipratropium-Albuterol Nebulize [Duoneb 0.5 mg-3 mg/3 ml Soln] 3 ml INHALATION RT -QID 02/17/14 [History] Lisinopril [Zestril] 5 mg PO QAM 02/17/14 [History] FLUoxetine HCL [PROzac] 20 mg PO QAM 12/23/16 [History] Furosemide [Lasix] 20 mg PO BID 12/23/16 [History] Omeprazole 40 mg PO DAILY #20 capsule. 01/06/17 [Rx] Dicyclomine [Bentyl] 10 mg PO TID 05/14/17 [History] Albuterol Inhaler [Ventolin Hfa Inhaler] 1 - 2 puff INHALATION RT-Q4H PRN [History] Levocetirizine Dihydrochloride [Xyzal] 5 mg PO DAILY PRN 12/01/17 [History] Ascorbic Acid [Vitamin C] 500 mg PO DAILY 03/13/18 [History] Carvedilol [Coreg] 3.125 mg PO BID 03/13/18 [History] Cholecalciferol [Vitamin D3] 1,000 unit PO DAILY 03/13/18 [History] Ibuprofen [Motrin] 800 mg PO DAILY 03/13/18 [History] [place]-3 Fatty Acids/Fish Oil [Fish Oil 1,000 mg Softgel] 1 cap PO DAILY [History] Oseltamivir [Tamiflu] 75 mg PO Q12HR #6 cap 03/15/18 [Rx] Follow up Appointment(s)/Referral(s): Carter Jacobson MD [STAFF PHYSICIAN] - 2 Weeks Caroline Brady MD [Primary Care Provider] - 03/18/18 10:45 am ([facility] [place]) Patient Instructions/Handouts: Influenza (DC), COPD (Chronic Obstructive Pulmonary Disease) (DC) Discharge Disposition: HOME SELF-CARE
== END 2018-03-15 14:05 | disposition home or self-care (01) ==
LOC: EC 15:51 → 1SOBS 18:12 → 4SSUR 03-14 18:21
PROVIDERS: ADMIT Family Medicine; ATTEND Family Medicine
DX: J10.1 Influenza due to other identified influenza virus with other respiratory manifestations (principal); J44.1 Chronic obstructive pulmonary disease with (acute) exacerbation; F17.210 Nicotine dependence, cigarettes, uncomplicated; F31.9 Bipolar disorder, unspecified; K57.90 Diverticulosis of intestine, part unspecified, without perforation or abscess without bleeding; K58.9 Irritable bowel syndrome, unspecified; H81.09 Meniere's disease, unspecified ear; K44.9 Diaphragmatic hernia without obstruction or gangrene; K76.0 Fatty (change of) liver, not elsewhere classified; I51.81 Takotsubo syndrome; F41.9 Anxiety disorder, unspecified; Z79.82 Long term (current) use of aspirin; Z79.51 Long term (current) use of inhaled steroids; Z79.899 Other long term (current) drug therapy; Z79.1 Long term (current) use of non-steroidal anti-inflammatories (NSAID); Z88.1 Allergy status to other antibiotic agents; Z88.8 Allergy status to other drugs, medicaments and biological substances; Z86.010 Personal history of colon polyps; I25.2 Old myocardial infarction; Z98.51 Tubal ligation status; Z82.5 Family history of asthma and other chronic lower respiratory diseases; Z82.49 Family history of ischemic heart disease and other diseases of the circulatory system
CPT/HCPCS: 96375 ×2; 96365; 99291; 36415; 94640 ×6; 93005; 85379; 83880; 80053; 82550; 82553; 83735; 84484; 85025; 85610; 85730; 87070; 87205; 87502; 71046; G0378 ×3; J2930 ×3; J2405; J3475

== ENCOUNTER → 2018-04-26 | Outpatient (CLI) | payer MEDICARE, OTHER ==
--- NOTE | 2018-04-27 14:32 | MM ---
Reason for exam: screening (asymptomatic). Last mammogram was performed 1 year and 1 month ago. History: Family history of breast cancer in cousin at age 58. Excisional biopsy of the left breast, December 15, 2007. Cancelled Left Mammotome of the left breast, December 08, 2007. Took hormonal contraceptives for 2 years. Physical Findings: A clinical breast exam by your physician is recommended on an annual basis and results should be correlated with mammographic findings. MG 3D Screening Mammo W/Cad Bilateral CC and MLO view(s) were taken. Prior study comparison: April 08, 2017, bilateral MG screening mammo w CAD. August 23, 2013, bilateral MG diagnostic mammo w CAD NADINE. The breast tissue is heterogeneously dense. This may lower the sensitivity of mammography. There are benign appearing round calcifications bilaterally. There is no discrete abnormality. ASSESSMENT: Benign, BI-RAD 2 RECOMMENDATION: Routine screening mammogram of both breasts in 1 year.
== END ==
LOC: RADMAMWWP 07:22
PROVIDERS: ATTEND Internal Medicine
DX: Z12.31 Encounter for screening mammogram for malignant neoplasm of breast (principal)
CPT/HCPCS: 77063; 77067

== ENCOUNTER 2018-06-24 15:51 | Emergency (ER) | payer MEDICARE, OTHER ==
[2018-06-24 15:58] VITALS: BP 119/67; PULSE 73; RESP 20
[2018-06-24] MEDS ORDERED: IPRATROPIUM-ALBUTEROL 3 ML NEB INHALATION STA (16:09)
[2018-06-24] MEDS ORDERED: ACETAMINOPHEN TAB 500 MG TAB PO STA (16:09)
--- NOTE | 2018-06-24 16:17 | ED ---
Fever HPI - General Chief Complaint: Fever Stated Complaint: fever, bodyaches Time Seen by Provider: 06/24/18 16:04 Source: patient, RN notes reviewed Mode of arrival: ambulatory Limitations: no limitations - History of Present Illness Initial Comments: 52-year-old female presents emergency Department chief complaint of fever cough congestion. Patient states that symptoms started last couple days. She has not taken any recent Tylenol Motrin. Patient does state that she has underlying COPD and also states that her significant other has similar symptoms. Patient states that she use her inhaler and taken relief of her wheezing. Patient denies any nausea vomiting diarrhea constipation. She states she aches had toe at this time. Patient states her hat cleaner is Dr. Giles. Patient does complain of mild nasal congestion drainage, sore throat. - Related Data Home Medications Medication Instructions Recorded Confirmed Aspirin 81 mg PO DAILY 02/17/14 03/13/18 Budesonide-Formot 160-4.5 Mcg 2 puff INHALATION RT-BID 02/17/14 03/13/18 [Symbicort 160-4.5 Mcg Inhaler] Divalproex ER [Depakote ER] 1,000 mg PO HS 02/17/14 03/13/18 Ipratropium-Albuterol Nebulize 3 ml INHALATION RT-QID 02/17/14 03/13/18 [Duoneb 0.5 mg-3 mg/3 ml Soln] Lisinopril [Zestril] 5 mg PO QAM 02/17/14 03/13/18 FLUoxetine HCL [PROzac] 20 mg PO QAM 12/23/16 03/13/18 Furosemide [Lasix] 20 mg PO BID 12/23/16 03/13/18 Dicyclomine [Bentyl] 10 mg PO TID 05/14/17 03/13/18 Albuterol Inhaler [Ventolin Hfa 1 - 2 puff INHALATION RT-Q4H PRN 12/01/17 03/13/18 Inhaler] Levocetirizine Dihydrochloride 5 mg PO DAILY PRN 12/01/17 03/13/18 [Xyzal] Ascorbic Acid [Vitamin C] 500 mg PO DAILY 03/13/18 03/13/18 Carvedilol [Coreg] 3.125 mg PO BID 03/13/18 03/13/18 Cholecalciferol [Vitamin D3] 1,000 unit PO DAILY 03/13/18 03/13/18 Ibuprofen [Motrin] 800 mg PO DAILY 03/13/18 03/13/18 [place]-3 Fatty Acids/Fish Oil [Fish 1 cap PO DAILY 03/13/18 03/13/18 Oil 1,000 mg Softgel] Previous Rx's Medication Instructions Recorded Omeprazole 40 mg PO DAILY #20 capsule. 01/06/17 Oseltamivir [Tamiflu] 75 mg PO Q12HR #6 cap 03/15/18 Levofloxacin [Levaquin] 500 mg PO DAILY #10 tab 06/24/18 predniSONE 50 mg PO DAILY #5 tab 06/24/18 Allergies Allergy/AdvReac Type Severity Reaction Status Date / Time cephalexin monohydrate AdvReac Itching Verified 06/24/18 15:58 [From Keflex] haloperidol [From Haldol] AdvReac Extrapyramidal Verified 06/24/18 15:58 Symptoms Review of Systems ROS Statement: Those systems with pertinent positive or pertinent negative responses have been documented in the HPI. ROS Other: All systems not noted in ROS Statement are negative. Past Medical History Past Medical History: COPD, Liver Disease, Myocardial Infarction ([place]) Additional Past Medical History / Comment(s): abdominal pain,UTIs,fatty liver,chronic sinus problems,steroids Dec 2016. Diverticular disease, Vinears disease Last Myocardial Infarction Date:: 12-31-2010 History of Any Multi-Drug Resistant Organisms: None Reported Past Surgical History: Section, Tubal Ligation, Uterine Ablation Additional Past Surgical History / Comment(s): x2,hemorrhoidectomy Past Anesthesia/Blood Transfusion Reactions: Motion Sickness Past Psychological History: Anxiety, Bipolar, Depression Smoking Status: Current every day smoker Past Alcohol Use History: None Reported Past Drug Use History: None Reported - Past Family History Mother Family Medical History: COPD, Myocardial Infarction ([place]) Father Family Medical History: Myocardial Infarction ([place]) General Exam Limitations: no limitations General appearance: alert, in no apparent distress Head exam: Present: atraumatic, normocephalic, normal inspection Eye exam: Present: normal appearance, PERRL, EOMI. Absent: scleral icterus, conjunctival injection, periorbital swelling ENT exam: Present: normal exam, normal oropharynx, mucous membranes moist, TM's normal bilaterally Neck exam: Present: normal inspection, full ROM. Absent: tenderness, meningismus, lymphadenopathy Respiratory exam: Present: wheezes, decreased breath sounds. Absent: normal lung sounds bilaterally, respiratory distress, rales, rhonchi, stridor Cardiovascular Exam: Present: regular rate, normal rhythm, normal heart sounds. Absent: systolic murmur, diastolic murmur, rubs, gallop, clicks GI/Abdominal exam: Present: soft, normal bowel sounds. Absent: distended, tenderness, guarding, rebound, rigid Course Vital Signs 06/24/18 15:56 Temperature 100.8 F H Pulse Rate 73 Respiratory 20 Rate Blood Pressure 119/67 O2 Sat by Pulse 96 Oximetry Medical Decision Making - Medical Decision Making 52-year-old female presents for fever cough congestion. Patient's chest x-ray shows no evidence of pneumonia. Influenza is negative. Patient still has influenza-like illness though we treated for underlying bronchitis with underlying COPD. Patient we given steroids, antibiotics return parameters were discussed. - Lab Data Lab Results 06/24/18 Range/Units 16:20 Influenza Type A RNA Not Detected (Not Detectd) Influenza Type B (PCR) Not Detected (Not Detectd) Disposition Clinical Impression: Acute bronchitis, COPD (chronic obstructive pulmonary disease) Disposition: HOME SELF-CARE Condition: Stable Instructions (If sedation given, give patient instructions): COPD (Chronic Obstructive Pulmonary Disease) (ED) Additional Instructions: Please return to the Emergency Department if symptoms worsen or any other concerns. Prescriptions: Levofloxacin [Levaquin] 500 mg PO DAILY #10 tab predniSONE 50 mg PO DAILY #5 tab Is patient prescribed a controlled substance at d/c from ED?: No Referrals: Caroline Brady MD [Primary Care Provider] - 1-2 days Time of Disposition: 16:50
--- NOTE | 2018-06-24 16:28 | XR ---
EXAMINATION TYPE: XR chest 2V DATE OF EXAM: 06/24/2018 COMPARISON: 03/13/2018 HISTORY: 52-year-old female with cough and pain TECHNIQUE: PA and lateral views FINDINGS: The cardiomediastinal silhouette, aorta, and pulmonary vasculature are within normal limits. Lungs an d pleural spaces are clear. IMPRESSION: No acute cardiopulmonary process.
[2018-06-24] MEDS ORDERED: methylPREDNISolone SOD SUCCI 125 MG/2 ML VIAL IM ONE (16:50)
[2018-06-24 17:06] VITALS: TEMP 101
== END 2018-06-24 17:06 | disposition home or self-care (01) ==
LOC: EC 15:51
DX: J44.0 Chronic obstructive pulmonary disease with (acute) lower respiratory infection (principal); J20.9 Acute bronchitis, unspecified; I25.2 Old myocardial infarction; F41.9 Anxiety disorder, unspecified; F31.9 Bipolar disorder, unspecified; F17.200 Nicotine dependence, unspecified, uncomplicated; Z79.02 Long term (current) use of antithrombotics/antiplatelets; Z79.82 Long term (current) use of aspirin; Z79.51 Long term (current) use of inhaled steroids; Z79.899 Other long term (current) drug therapy; Z88.1 Allergy status to other antibiotic agents; Z88.8 Allergy status to other drugs, medicaments and biological substances
CPT/HCPCS: 94640; 87502; 71046; 99284; 96372; J2930

== ENCOUNTER → 2020-02-16 | Outpatient (CLI) | payer MEDICARE, OTHER ==
--- NOTE | 2020-02-20 09:23 | MM ---
Reason for exam: screening (asymptomatic). Last mammogram was performed 1 year and 10 months ago. History: Patient is postmenopausal. Family history of breast cancer in cousin at age 58. Excisional biopsy of the left breast, December 15, 2007. Cancelled Left Mammotome of the left breast, December 08, 2007. Took hormonal contraceptives for 2 years. Physical Findings: A clinical breast exam by your physician is recommended on an annual basis and results should be correlated with mammographic findings. MG 3D Screening Mammo W/Cad Bilateral CC and MLO view(s) were taken. Prior study comparison: April 26, 2018, bilateral MG 3d screening mammo w/cad. April 08, 2017, bilateral MG screening mammo w CAD. The breast tissue is heterogeneously dense. This may lower the sensitivity of mammography. Focal asymmetry right middle breast on MLO. This finding is changed when compared with previous exams. ASSESSMENT: Incomplete: need additional imaging evaluation, BI-RAD 0 RECOMMENDATION: Special view mammogram of the right breast. If lesion persists on supplemental views, image directed ultrasound is recommended. [facility] will attempt to contact patient to return for supplemental views and ultrasound if indicated.
== END | disposition home or self-care (01) ==
LOC: RADMAMWWP 10:13
PROVIDERS: ATTEND Internal Medicine
DX: Z12.31 Encounter for screening mammogram for malignant neoplasm of breast (principal)
CPT/HCPCS: 77063; 77067

== ENCOUNTER → 2020-02-22 | Outpatient (CLI) | payer MEDICARE, OTHER ==
--- NOTE | 2020-02-22 10:05 | MM ---
Reason for exam: additional evaluation requested from abnormal screening. Last mammogram was performed less than 1 month ago. History: Patient is postmenopausal. Family history of breast cancer in cousin at age 58. Excisional biopsy of the left breast, December 15, 2007. Cancelled Left Mammotome of the left breast, December 08, 2007. Took hormonal contraceptives for 2 years. Physical Findings: Nurse did not find any significant physical abnormalities on exam. MG 3D Work Up W/Cad RT Spot compression MLO view(s) were taken of the right breast. Prior study comparison: February 16, 2020, bilateral MG 3d screening mammo w/cad. April 26, 2018, bilateral MG 3d screening mammo w/cad. There is no discrete abnormality including area of concern. These results were verbally communicated with the patient and result sheet given to the patient on 02/22/20. ASSESSMENT: Probably benign, BI-RAD 3 RECOMMENDATION: Follow-up diagnostic mammogram of the right breast in 6 months.
== END | disposition home or self-care (01) ==
LOC: RADMAMWWP 09:12
PROVIDERS: ATTEND Internal Medicine
DX: R92.8 Other abnormal and inconclusive findings on diagnostic imaging of breast (principal)
CPT/HCPCS: 77065; G0279; 77061

== ENCOUNTER → 2020-05-08 | Outpatient (CLI) | payer MEDICARE, OTHER ==
[2020-05-08 10:25] VITALS: BP 131/72; PULSE 76; RESP 18; TEMP 98.2
--- NOTE | 2020-05-08 11:11 | P.HPOB ---
History of Present Illness H&P Date: 05/08/20 Chief Complaint: The patient is here for her routine gynecologic exam. This is a 54-year-old with an LMP of 2016. The patient is here to establish with this office. Her last pelvic exam was about 3 years ago. She was previously seen at [facility] [facility] for her gynecologic exams. She is without gynecologic complaints and denies any postmenopausal bleeding. Her last screening mammogram was done on 02/16/2020 and did require a right breast workup was probably benign. They have recommended a follow-up diagnostic mammogram of the right breast after 6 months. She states she has an order slip for this. Review of Systems The patient's weight has been stable over the last year. She denies respiratory, cardiac, or G.I. problems. Past Medical History Past Medical History: COPD, GERD/Reflux, Liver Disease, Myocardial Infarction ([place]) Additional Past Medical History / Comment(s): [place] 2010. Seasonal ALLERGIES,UTIs,fatty liver,chronic sinus problems. Diverticular disease, IBS, Meniere's disease. 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 Last Myocardial Infarction Date:: 12-31-2010 History of Any Multi-Drug Resistant Organisms: None Reported Past Surgical History: Section, Tubal Ligation, Uterine Ablation Additional Past Surgical History / Comment(s): x2,hemorrhoidectomy. Colonoscopy 2015. Past Anesthesia/Blood Transfusion Reactions: Motion Sickness Past Psychological History: Anxiety, Bipolar, Depression Smoking Status: Current every day smoker (Half a pack to 1 pack of cigarettes per day), Vaper Past Alcohol Use History: Rare (4 per year) Additional Past Alcohol Use History / Comment(s): started smoking at age 16,smokes 1ppd Past Drug Use History: None Reported Additional History: She is and has been with her partner since 1999. She is sexually active and they live together. - Past Family History Mother Family Medical History: Cancer, COPD, Myocardial Infarction ([place]) Additional Family Medical History / Comment(s): Lung cancer. Maternal cousin had breast cancer. Father Family Medical History: Myocardial Infarction ([place]) Sister(s) Family Medical History: Diabetes Mellitus Medications and Allergies Home Medications Medication Instructions Recorded Confirmed Type Budesonide-Formot 160-4.5 Mcg 2 puff INHALATION RT-BID 02/17/14 05/08/20 History [Symbicort 160-4.5 Mcg Inhaler] Divalproex ER [Depakote ER] 1,000 mg PO HS 02/17/14 05/08/20 History Ipratropium-Albuterol Nebulize 3 ml INHALATION RT-QID 02/17/14 05/08/20 History [Duoneb 0.5 mg-3 mg/3 ml Soln] FLUoxetine HCL [PROzac] 20 mg PO QAM 12/23/16 05/08/20 History Furosemide [Lasix] 20 mg PO BID 12/23/16 05/08/20 History Omeprazole 40 mg PO DAILY #20 capsule.dr 01/06/17 05/08/20 Rx Albuterol Inhaler (Mhu) [Ventolin 1 - 2 puff INHALATION RT-Q4H PRN 12/01/17 05/08/20 History Hfa Inhaler (Mhu)] Hyoscyamine Sulfate [Levbid] 0.375 mg PO BID 05/08/20 05/08/20 History Loratadine 10 mg PO DAILY 05/08/20 05/08/20 History Allergies Allergy/AdvReac Type Severity Reaction Status Date / Time cephalexin monohydrate AdvReac Itching Verified 05/08/20 10:15 [From Keflex] haloperidol [From Haldol] AdvReac Extrapyramidal Verified 05/08/20 10:15 Symptoms Exam Vital Signs Temp Pulse Resp BP Pulse Ox 05/08/20 10:20 98.2 F 76 18 131/72 98 Intake and Output 05/07/20 05/08/20 05/08/20 22:59 06:59 14:59 Other: Weight 70.307 kg Height 5 feet 2 inches, weight 155 pounds, BMI 28.3. This is a well-developed well-nourished white female who is alert and oriented times 3 in no acute distress. HEENT: Within normal limits. NECK: Supple without mass or thyromegaly. CHEST AND LUNGS: There is mild prolonged expiration bilaterally without wheezes consistent with her COPD. HEART: Regular rate and rhythm. BREASTS: Are without mass or discharge. AXILLARY EXAM: Negative for adenopathy. BACK: Negative for CVA tenderness. ABDOMEN: Soft, nontender, without palpable masses. PELVIC EXAM: Normal external genitalia with mild atrophy. Cervix and vagina appear normal with mild to moderate atrophy. There is no unusual discharge. There is no evidence of prolapse. The uterus is midposition, nongravid size and nontender. There are no palpable adnexal masses or tenderness. RECTAL EXAM: Rectovaginal exam is negative for mass or tenderness and is negative for occult blood. EXTREMITIES: Nontender. IMPRESSION: 1. 54-year-old menopausal female with normal gynecologic exam. PLAN: 1. Pap smear cotest was performed. 2. Self breast awareness was discussed with the patient. 3. Screening mammogram was done on 02/16/2020 and did require right breast workup which was probably benign. 6 month diagnostic right mammogram was recommended. The patient states she has an order slip for this. 4. Osteoporosis prevention was discussed. I have stressed the importance of adequate calcium, vitamin D and regular exercise. Recommended amounts of calcium and vitamin D were also discussed. 5. She was advised to return in one year for her annual well woman exam.
--- NOTE | 2020-05-22 15:05 | P.PN ---
Progress Note - Text Progress Note Date: 05/22/20 OUTPATIENT FOLLOW-UP NOTE TEST(S)/RESULTS: Test results from 05/08/2020 include negative Pap smear and positive high risk HPV testing which was negative for type 16 and negative for type 18. There was a note on the Pap smear saying that there was a shift in the vaginal rajinder suggestive of bacterial vaginosis. METHOD OF NOTIFICATION: The patient was notified by phone. PATIENT COMMENTS: The patient states she has never had problems with her cervix needing treatment. She denies any bacterial vaginosis symptoms such as discharge or vaginal odor. DIAGNOSIS: Negative Pap smear with positive high risk HPV testing and negative testing for types 16 and 18. No bacterial vaginosis symptoms. DISCUSSION: ASCCP calculated five-year risk for ZHENG-3 or greater is 4.8%. 1 year follow-up is recommended. PLAN: The patient was instructed to call if she develops any bacterial vaginosis symptoms and she will return in one year for her well woman examination. At that time we will repeat the Pap smear cotest. We have discussed these findings and all of her questions were answered. She understands that HPV is generally past sexually however it is difficult to know exactly when she was exposed to HPV.
== END | disposition home or self-care (01) ==
LOC: WWCWWP 10:04
PROVIDERS: ATTEND Obstetrics & Gynecology
DX: Z53.9 Procedure and treatment not carried out, unspecified reason (principal)

== ENCOUNTER 2020-07-19 09:44 | Day surgery (SDC) | payer MEDICARE, OTHER ==
[2020-07-16 16:01] VITALS: BMI 28.7
[~2020-07-19 09:44] MED LIST changes: -LIDOCAINE 1% 20 ML VIAL (10MG/ML) FOR IV START INTRADERMA PRN
[2020-07-19] MEDS ORDERED: LIDOCAINE 1% (10MG/ML) FOR IV START INTRADERMA ONE (10:15)
[2020-07-19 10:20] VITALS: RESP 16; TEMP 97.2
[2020-07-19] MEDS ORDERED: PROPOFOL 10 MG/ML 20 ML VIAL IV ONE (10:46)
--- NOTE | 2020-07-19 11:31 | P.PCN ---
Date of Procedure: 07/19/20 Description of Procedure: BRIEF HISTORY: Patient is a 54-year-old female presenting for outpatient colonoscopy for evaluation of personal history of colon polyps. Patient does have a history of IBS but denies any recent change in bowel habits. No blood per rectum. No family history of colon cancer. PROCEDURE PERFORMED: Colonoscopy. PREOPERATIVE DIAGNOSIS: Personal history of colon polyp, personal history of sigmoid polypectomy, less colonoscopy 2016.. ESTIMATED BLOOD LOSS: Minimal. IV sedation per Anesthesia. PROCEDURE: After informed consent was obtained, the patient, was brought into the endoscopy unit. IV sedation was administered by Anesthesia under continuous monitoring. Digital rectal examination was normal. Initially the Olympus CF-190 flexible video colonoscope was then inserted in the rectum, gradually advanced into the cecum without any difficulty. Careful examination was performed as the scope was gradually being withdrawn. Ileocecal valve and the appendiceal orifice were visualized and appeared normal. Prep was excellent. Mucosa of the cecum, ascending colon, transverse colon, descending colon, sigmoid colon, and rectum appeared normal. Retroflexion was performed in the rectum and no lesions were seen, low-grade internal hemorrhoids and hypertrophied papilla noted . The patient tolerated the procedure well. IMPRESSION: Normal-appearing colon from rectum to cecum normal-appearing terminal ileum . Internal hemorrhoids. RECOMMENDATIONS: Findings of this examination were discussed with the patient And her family. Okay to resume diet. Okay to resume medications. Recommend repeat colonoscopy in 5 years for personal history of colon polyps.
[2020-07-19 11:57] VITALS: BP 136/79; PULSE 65
== END 2020-07-19 12:15 | disposition home or self-care (01) ==
LOC: ORWHC2ENDO 09:44
PROVIDERS: ATTEND Internal Medicine
DX: Z12.11 Encounter for screening for malignant neoplasm of colon (principal); Z86.010 Personal history of colon polyps; K64.8 Other hemorrhoids; Z98.890 Other specified postprocedural states; J44.9 Chronic obstructive pulmonary disease, unspecified; F17.200 Nicotine dependence, unspecified, uncomplicated; K76.0 Fatty (change of) liver, not elsewhere classified; F31.9 Bipolar disorder, unspecified; Z79.51 Long term (current) use of inhaled steroids; Z79.899 Other long term (current) drug therapy; Z88.1 Allergy status to other antibiotic agents; Z88.8 Allergy status to other drugs, medicaments and biological substances
CPT/HCPCS: J2704; G0105; 45378

== ENCOUNTER → 2020-08-16 | Outpatient (CLI) | payer MEDICARE, OTHER ==
--- NOTE | 2020-08-17 08:33 | MM ---
Reason for exam: follow-up at short interval from prior study. Last mammogram was performed 6 months ago. History: Patient is postmenopausal. Family history of breast cancer in cousin at age 58. Excisional biopsy of the left breast, December 15, 2007. Cancelled Left Mammotome of the left breast, December 08, 2007. Took hormonal contraceptives for 2 years. Physical Findings: Nurse did not find any significant physical abnormalities on exam. MG 3D Diag Mammo W/Cad RT CC, MLO, and XCCL view(s) were taken of the right breast. Prior study comparison: February 22, 2020, right breast MG 3d work up w/cad RT. February 16, 2020, bilateral MG 3d screening mammo w/cad. There are scattered fibroglandular densities. Right breast 8mm nodule at 9-10 o'clock, may be dense tissue. Ultrasound recommended. These results were verbally communicated with the patient and result sheet given to the patient on 08/16/20. ASSESSMENT: Incomplete: need additional imaging evaluation, BI-RAD 0 RECOMMENDATION: Ultrasound of the right breast.
--- NOTE | 2020-08-17 08:59 | USB ---
Reason for exam: additional evaluation requested from abnormal screening. History: Patient is postmenopausal. Family history of breast cancer in cousin at age 58. Excisional biopsy of the left breast, December 15, 2007. Cancelled Left Mammotome of the left breast, December 08, 2007. Took hormonal contraceptives for 2 years. US Breast Limited RT Right limited breast ultrasound including focal area of concern, retroareolar and axilla demonstrates a 0.4 x 0.8 x 0.3cm oval, irregular, cystic lesion at 9 o'clock for which a biopsy is recommended, a 1.7 x 1.0 x 0.7cm oval, elongated, hypoechoic lesion at 10 o'clock for which a biopsy is recommended and a 3.6 x 2.0 x 1.8cm lymph node at the axilla. These results were verbally communicated with the patient and result sheet given to the patient on 08/16/20. ASSESSMENT: Suspicious, BI-RAD 4 RECOMMENDATION: Ultrasound core biopsy of the right breast. (x 2) Called Dr. Hall's office with mammographic findings and has scheduled an appointment for the patient for 09/27/20 at 8:[address] Waller. Biopsy scheduled for 09/12/20 t 10:30. PRELIMINARY REPORT CALLED AND FAXED TO DR. WALLER ON 08/17/20.
== END | disposition home or self-care (01) ==
LOC: RADMAMWWP 10:21
PROVIDERS: ATTEND Internal Medicine
DX: N63.10 Unspecified lump in the right breast, unspecified quadrant (principal); N64.89 Other specified disorders of breast; Z78.0 Asymptomatic menopausal state; Z80.3 Family history of malignant neoplasm of breast
CPT/HCPCS: 77065; 76642; G0279; 77061

== ENCOUNTER → 2020-09-12 | Day surgery (SDC) | payer MEDICARE, OTHER ==
[2020-09-12 10:17] VITALS: BP 116/83; PULSE 64; RESP 18; TEMP 98.4
--- NOTE | 2020-09-12 12:58 | USB ---
Targeted right breast ultrasound INDICATION: 2 right breast lesions. COMPARISON: 08/16/2020 FINDINGS: Targeted right breast ultrasound was performed at 9 and 10:00. The previously noted lesion in the right breast at 10:00 is confluent with adjacent tissue planes in the radial plane and presumably represents prominent tissue, amenable to 6 month ultrasound followup. The previously noted lesion in the right breast at 9:00 is confluent with adjacent ducts and is less prominent than on the prior examination, presumed benign, amenable to 6 month ultrasound followup. Findings were discussed with the patient at the time of the examination. IMPRESSION: 6 month sonographic follow-up is recommended for the right breast lesion at 9:00 and the right breast lesion at 10:00. Clinical follow-up is recommended. BI-RADS 3, probably benign.
== END ==
LOC: RADUSWWP 09:33
PROVIDERS: ATTEND Surgery
DX: R92.8 Other abnormal and inconclusive findings on diagnostic imaging of breast (principal); Z53.9 Procedure and treatment not carried out, unspecified reason; Z88.1 Allergy status to other antibiotic agents; Z88.8 Allergy status to other drugs, medicaments and biological substances

== ENCOUNTER 2021-01-13 22:08 | Emergency (ER) | payer MEDICARE, OTHER ==
[2021-01-13 22:21] VITALS: TEMP 99
[2021-01-13] MEDS ORDERED: KETOROLAC 15 MG/ML 1 ML VIAL IM STA (23:19)
--- NOTE | 2021-01-13 23:41 | XR ---
EXAMINATION TYPE: XR Hip LT and AP Pelvis DATE OF EXAM: 01/13/2021 COMPARISON: NONE HISTORY: Left hip pain TECHNIQUE: 3 views FINDINGS: Pelvic ring is intact. Proximal femurs and hip joints are intact. Sacroiliac joints are int act. IMPRESSION: Negative pelvis and left hip exam. No fracture.
--- NOTE | 2021-01-13 23:42 | XR ---
EXAMINATION TYPE: XR lumbar spine 2 or 3V DATE OF EXAM: 01/13/2021 COMPARISON: NONE HISTORY: Left hip pain TECHNIQUE: 3 views FINDINGS: Lumbar vertebra have normal spacing and alignment. Posterior elements are intact. There is no compression fracture. Sacroiliac joints appear normal. There is atheromatous change in the abdomin al aorta. IMPRESSION: Negative lumbar spine exam. No fracture.
--- NOTE | 2021-01-13 23:56 | ED ---
General Adult HPI - General Chief complaint: Extremity Injury, Lower Stated complaint: L Leg Pain Time Seen by Provider: 01/13/21 22:44 Source: patient Mode of arrival: wheelchair Limitations: no limitations - History of Present Illness Initial comments: 55-year-old female with a past medical history of COPD, liver disease, SD presents to the emergency room for a chief of left leg pain. Patient states 3 days ago she was sitting on the floor feeding her dog. States that when she would sit up she felt a sharp pain in her groin area. States that since then she has had pain that radiates down her leg. States she has had numbness in the left leg. States the pain goes all the way down to the ankle at times. Patient states the pain also is in her buttock and low back. Patient denies fevers or chills. Denies abdominal pain. States pain worsens with movement.patient denies any bladder or bowel change anesthesia, weakness of the legs, or fevers. Patient has no other complaints at this time including shortness of breath, chest pain, abdominal pain, nausea or vomiting, headache, or visual changes. - Related Data Home Medications Medication Instructions Recorded Confirmed Budesonide-Formot 160-4.5 Mcg 2 puff INHALATION RT-BID 02/17/14 09/12/20 [Symbicort 160-4.5 Mcg Inhaler] Divalproex ER [Depakote ER] 1,000 mg PO HS 02/17/14 09/12/20 FLUoxetine HCL [PROzac] 20 mg PO QAM 12/23/16 09/12/20 Furosemide [Lasix] 20 mg PO BID PRN 12/23/16 09/12/20 Albuterol Inhaler (Mhu) [Ventolin 1 - 2 puff INHALATION RT-Q4H PRN 12/01/17 09/12/20 Hfa Inhaler (Mhu)] Hyoscyamine Sulfate [Levbid] 0.375 mg PO BID 05/08/20 09/12/20 Loratadine 10 mg PO DAILY 05/08/20 09/12/20 Ipratropium-Albuterol Nebulize 3 ml INHALATION QID 07/16/20 09/12/20 [Duoneb 0.5 mg-3 mg/3 ml Soln] Previous Rx's Medication Instructions Recorded Omeprazole 40 mg PO DAILY #20 capsule.dr 01/06/17 predniSONE 50 mg PO DAILY #5 tablet 01/14/21 Allergies Allergy/AdvReac Type Severity Reaction Status Date / Time cephalexin monohydrate AdvReac Itching Verified 01/13/21 22:18 [From Keflex] haloperidol [From Haldol] AdvReac Extrapyramidal Verified 01/13/21 22:18 Symptoms Review of Systems ROS Statement: Those systems with pertinent positive or pertinent negative responses have been documented in the HPI. ROS Other: All systems not noted in ROS Statement are negative. Past Medical History Past Medical History: COPD, GERD/Reflux, Liver Disease, Myocardial Infarction ([place]) Additional Past Medical History / Comment(s): SD 2010. Seasonal ALLERGIES,UTIs,fatty liver,chronic sinus problems. Diverticular disease, IBS, Meniere's disease. Last Myocardial Infarction Date:: 12-31-2010 History of Any Multi-Drug Resistant Organisms: None Reported Past Surgical History: Breast Surgery, Section, Tubal Ligation, Uterine Ablation Additional Past Surgical History / Comment(s): x2,hemorrhoidectomy. Colonoscopy 2020. Left breast excisional bx. 2007 Past Anesthesia/Blood Transfusion Reactions: No Reported Reaction Past Psychological History: Anxiety, Bipolar, Depression Smoking Status: Current every day smoker Past Alcohol Use History: None Reported Past Drug Use History: None Reported - Past Family History Mother Family Medical History: Cancer, COPD, Myocardial Infarction ([place]) Additional Family Medical History / Comment(s): Lung cancer. Maternal cousin had breast cancer. Father Family Medical History: Myocardial Infarction (SD) Sister(s) Family Medical History: Diabetes Mellitus General Exam Limitations: no limitations General appearance: alert, in no apparent distress Head exam: Present: atraumatic Eye exam: Present: normal appearance, PERRL, EOMI. Absent: scleral icterus, conjunctival injection ENT exam: Present: normal exam, mucous membranes moist Neck exam: Present: normal inspection, full ROM. Absent: tenderness Respiratory exam: Present: normal lung sounds bilaterally. Absent: respiratory distress, wheezes Cardiovascular Exam: Present: regular rate, normal rhythm, normal heart sounds GI/Abdominal exam: Present: soft, normal bowel sounds. Absent: distended, tenderness Extremities exam: Present: full ROM (Patient able to flex knee and hip to 90, extension to neutral position.), normal capillary refill (Capillary refill less than 2 seconds, DP pulse 2+ left lower extremity.), other (Sensation intact left lower extremity.). Absent: tenderness (No significant tenderness in the thigh groin or calf.), calf tenderness (No edema erythema. Negative Homans sign.) Course Vital Signs 01/13/21 22:18 Temperature 99 F Pulse Rate 66 Respiratory 18 Rate Blood Pressure 131/69 O2 Sat by Pulse 95 Oximetry Medical Decision Making - Medical Decision Making Vitals are stable. Patient is well appearing. Neurovascular status intact in the left lower extremity. DP pulse 2+. Strength 5 out of 5. Sensation intact. Lumbar spine, hip, and pelvis x-ray are negative for acute fracture. Given pain in the buttock, low back, and radiating down the leg with paresthesias pain is consistent with lumbar radiculopathy or sciatica. Patient given pain medication and steroids. She will be given orthopedic follow-up. I did discuss strict return parameters with patient and she is agreeable. Disposition Clinical Impression: Lumbar radiculopathy Disposition: HOME SELF-CARE Condition: Good Instructions (If sedation given, give patient instructions): Sciatica (ED) Additional Instructions: Please take Tylenol 3 as needed for pain but do not drive or operate machinery while taking this. Follow-up with orthopedics and primary care. If you have worsening symptoms such as bladder or bowel changes, numbness in the groin or buttock, weakness of the legs, or fevers return immediately to the emergency room. Prescriptions: predniSONE 50 mg PO DAILY #5 tablet Is patient prescribed a controlled substance at d/c from ED?: No Referrals: Andrea Perez MD [Primary Care Provider] - 1-2 days Time of Disposition: 00:42
[2021-01-14] MEDS ORDERED: predniSONE 20 MG TAB PO STA (00:42)
[2021-01-14] MEDS ORDERED: ACET/COD 300 MG/30 MG STARTER PACK 6 TAB BTL PO STA (00:42)
[2021-01-14] MEDS ORDERED: MORPHINE SULFATE 4 MG/ML SYRINGE IM STA (00:43)
[2021-01-14 01:18] VITALS: BP 128/86; PULSE 64; RESP 20
== END 2021-01-14 01:18 | disposition home or self-care (01) ==
LOC: EC 22:08
DX: M54.16 Radiculopathy, lumbar region (principal); J44.9 Chronic obstructive pulmonary disease, unspecified; I25.2 Old myocardial infarction; K21.9 Gastro-esophageal reflux disease without esophagitis; F31.9 Bipolar disorder, unspecified; F41.9 Anxiety disorder, unspecified; F17.200 Nicotine dependence, unspecified, uncomplicated; Z79.51 Long term (current) use of inhaled steroids; Z79.899 Other long term (current) drug therapy; Z79.52 Long term (current) use of systemic steroids
CPT/HCPCS: 72100; 73502; 99283; 96372 ×2; J2270; J1885; J7512

== ENCOUNTER → 2021-04-04 | Outpatient (CLI) | payer MEDICARE, OTHER ==
--- NOTE | 2021-04-04 10:13 | USB ---
Reason for exam: follow-up at short interval from prior study. History: Patient is postmenopausal. Family history of breast cancer in cousin at age 58. US discontinued breast bx RT of the right breast, September 12, 2020. Excisional biopsy of the left breast, December 15, 2007. Cancelled Left Mammotome of the left breast, December 08, 2007. Took hormonal contraceptives for 2 years. Physical Findings: Nurse did not find any significant physical abnormalities on exam. US Breast Limited RT Right limited breast ultrasound including focal area of concern, retroareolar and axilla demonstrates a 0.6 x 0.3 x 0.7cm hypoechoic, vague area at 9 o'clock versus 8mm previously, continued follow up recommended and a tubular hypoechoic structure, like debris distended duct up to 6mm wide at 10 o'clock, continued follow up recommended. Scanned 9-12 o'clock. These results were verbally communicated with the patient and result sheet given to the patient on 04/04/21. ASSESSMENT: Incomplete: need additional imaging evaluation, BI-RAD 0 RECOMMENDATION: Special view mammogram of both breasts.
--- NOTE | 2021-04-04 10:14 | MM ---
Reason for exam: additional evaluation requested from abnormal screening. Last mammogram was performed 8 months ago. History: Patient is postmenopausal. Family history of breast cancer in cousin at age 58. US discontinued breast bx RT of the right breast, September 12, 2020. Excisional biopsy of the left breast, December 15, 2007. Cancelled Left Mammotome of the left breast, December 08, 2007. Took hormonal contraceptives for 2 years. MG 3D Diag Mammo W/Cad NADINE Bilateral CC and MLO view(s) were taken. Prior study comparison: August 16, 2020, right breast MG 3d diag mammo w/cad RT. February 22, 2020, right breast MG 3d work up w/cad RT. There are scattered fibroglandular densities. No significant new findings when compared with previous films. These results were verbally communicated with the patient and result sheet given to the patient on 04/04/21. ASSESSMENT: Probably benign, BI-RAD 3 RECOMMENDATION: Ultrasound of the right breast in 6 months.
== END | disposition home or self-care (01) ==
LOC: RADUSWWP 08:17
PROVIDERS: ATTEND Surgery
DX: R92.8 Other abnormal and inconclusive findings on diagnostic imaging of breast (principal); Z78.0 Asymptomatic menopausal state; Z80.3 Family history of malignant neoplasm of breast
CPT/HCPCS: 77066; 76642; G0279; 77062

== ENCOUNTER → 2021-05-28 | Outpatient (CLI) | payer MEDICARE, OTHER ==
[2021-05-28 09:43] VITALS: BP 147/80; PULSE 68; RESP 18; TEMP 98.1
--- NOTE | 2021-05-28 10:20 | P.HPOB ---
History of Present Illness H&P Date: 05/28/21 Chief Complaint: The patient is here for her routine gynecologic exam. This is a 55-year-old with an LMP of 2016. The patient is without gynecologic complaints and denies any postmenopausal bleeding. The patient had a recent bilateral mammogram on 04/04/2021 which was felt to be probably benign. A six-month right breast ultrasound was recommended. Review of Systems She has lost about 5 pounds over the past year. She denies respiratory or cardiac problems. GI: Occasional irritable bowel symptoms including intermittent loose stools. Past Medical History Past Medical History: COPD, GERD/Reflux, Liver Disease, Myocardial Infarction ([place]) Additional Past Medical History / Comment(s): [place] 2010. Seasonal ALLERGIES,UTIs,fatty liver,chronic sinus problems. Diverticular disease, IBS, Meniere's disease. 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 Last Myocardial Infarction Date:: 12-31-2010 History of Any Multi-Drug Resistant Organisms: None Reported Past Surgical History: Breast Surgery, Section, Tubal Ligation, Uterine Ablation Additional Past Surgical History / Comment(s): x2,hemorrhoidectomy. Colonoscopy 2020(next after 5yr). Left breast excisional bx. 2007 Past Anesthesia/Blood Transfusion Reactions: No Reported Reaction Past Psychological History: Anxiety, Bipolar, Depression Smoking Status: Current every day smoker (Half a pack per day) Past Alcohol Use History: Rare (4 per year) Additional Past Alcohol Use History / Comment(s): started smoking at age 16,smokes 1ppd Past Drug Use History: None Reported Additional History: She is and has been with her partner since 1999. The live together. She does not work outside of the home. - Past Family History Mother Family Medical History: Cancer, COPD, Myocardial Infarction ([place]) Additional Family Medical History / Comment(s): Lung cancer. Maternal cousin had breast cancer. Father Family Medical History: Myocardial Infarction ([place]) Sister(s) Family Medical History: Diabetes Mellitus Medications and Allergies Home Medications Medication Instructions Recorded Confirmed Type Budesonide-Formot 160-4.5 Mcg 2 puff INHALATION RT-BID 02/17/14 05/28/21 History [Symbicort 160-4.5 Mcg Inhaler] Divalproex ER [Depakote ER] 1,000 mg PO HS 02/17/14 05/28/21 History FLUoxetine HCL [PROzac] 20 mg PO QAM 12/23/16 05/28/21 History Furosemide [Lasix] 20 mg PO BID PRN 12/23/16 05/28/21 History Albuterol Inhaler (u) [Ventolin 1 - 2 puff INHALATION RT-Q4H PRN 12/01/17 05/28/21 History Hfa Inhaler (u)] Ipratropium-Albuterol Nebulize 3 ml INHALATION QID 07/16/20 05/28/21 History [Duoneb 0.5 mg-3 mg/3 ml Soln] Allergies Allergy/AdvReac Type Severity Reaction Status Date / Time cephalexin monohydrate AdvReac Itching Verified 05/28/21 09:37 [From Keflex] haloperidol [From Haldol] AdvReac Extrapyramidal Verified 05/28/21 09:37 Symptoms Exam Vital Signs Temp Pulse Resp BP Pulse Ox 05/28/21 09:40 98.1 F 68 18 147/80 100 Intake and Output 05/27/21 05/28/21 05/28/21 22:59 06:59 14:59 Other: Weight 68.039 kg Height 5 feet 2 inches, weight 150 pounds, BMI 27.4. This is a well-developed well-nourished white female who is alert and oriented times 3 in no acute distress. HEENT: Within normal limits. NECK: Supple without mass or thyromegaly. CHEST AND LUNGS: Clear to auscultation. HEART: Regular rate and rhythm. BREASTS: Are without mass or discharge. AXILLARY EXAM: Negative for adenopathy. BACK: Negative for CVA tenderness. ABDOMEN: Soft, nontender, without palpable masses. PELVIC EXAM: Normal external genitalia with mild to moderate atrophy. Cervix and vagina appear normal with mild to moderate atrophy. There is no unusual discharge. There is no evidence of prolapse. The uterus is midposition, nongravid size and nontender. There are no palpable adnexal masses or tenderness. RECTAL EXAM: Rectovaginal exam is negative for mass or tenderness and is negative for occult blood. EXTREMITIES: Nontender. IMPRESSION: 1. 55-year-old menopausal female with normal gynecologic exam. 2. Previous Pap smear that was negative on 05/08/2020 with positive high-risk HPV testing(-16, -18) PLAN: 1. Pap smear cotest was performed. 2. Self breast awareness was discussed with the patient. We have also discussed symptoms associated with inflammatory breast cancer. 3. Right breast ultrasound will be due in September 2021. The order slip was given to the patient for this. 4. Osteoporosis prevention was discussed. I have stressed the importance of adequate calcium, vitamin D and regular exercise. Recommended amounts of joan cium and vitamin D were also discussed. 5. She has completed her Covid vaccination series and did receive a booster. 6. She was advised to return in one year for her annual well woman exam.
== END ==
LOC: WWCWWP 09:24
PROVIDERS: ATTEND Obstetrics & Gynecology
DX: Z01.419 Encounter for gynecological examination (general) (routine) without abnormal findings (principal); J44.9 Chronic obstructive pulmonary disease, unspecified; K21.9 Gastro-esophageal reflux disease without esophagitis; I25.2 Old myocardial infarction; F41.9 Anxiety disorder, unspecified; F31.9 Bipolar disorder, unspecified; F17.210 Nicotine dependence, cigarettes, uncomplicated; Z79.51 Long term (current) use of inhaled steroids; Z79.899 Other long term (current) drug therapy; Z88.1 Allergy status to other antibiotic agents; Z88.8 Allergy status to other drugs, medicaments and biological substances

== ENCOUNTER 2021-06-20 23:58 | Emergency (ER) | payer MEDICARE, OTHER ==
[2021-06-21 00:22] VITALS: TEMP 97.9
[2021-06-21] MEDS ORDERED: HYDROcodone/APAP 5-325MG 1 EACH TAB PO STA (02:21)
[2021-06-21] MEDS ORDERED: KETOROLAC 15 MG/ML 1 ML VIAL IM STA (02:21)
[2021-06-21] MEDS ORDERED: ORPHENADRINE 30 MG/ML 2 ML VIAL IM STA (02:21)
--- NOTE | 2021-06-21 02:38 | XR ---
EXAMINATION TYPE: XR lumbosacral spine min 4V DATE OF EXAM: 06/21/2021 COMPARISON: 01/13/2021 HISTORY: Low back pain TECHNIQUE: 5 view FINDINGS: Lumbar vertebrae have normal alignment. Disc spaces are fairly normal. Posterior elements a re intact. There is no compression fracture. Abdominal aorta is atheromatous. Sacroiliac joints are i ntact. IMPRESSION: Negative lumbar spine exam. Atheromatous aorta. No change.
[2021-06-21 02:56] VITALS: BP 122/79; PULSE 70; RESP 18
--- NOTE | 2021-06-21 03:06 | ED ---
Back Pain HPI - General Chief Complaint: Back Pain/Injury Stated Complaint: Back pain Time Seen by Provider: 06/21/21 02:15 Source: patient, family, RN notes reviewed Limitations: no limitations - History of Present Illness MD Complaint: back pain - Related Data Home Medications Medication Instructions Recorded Confirmed Budesonide-Formot 160-4.5 Mcg 2 puff INHALATION RT-BID 02/17/14 05/28/21 [Symbicort 160-4.5 Mcg Inhaler] Divalproex ER [Depakote ER] 1,000 mg PO HS 02/17/14 05/28/21 FLUoxetine HCL [PROzac] 20 mg PO QAM 12/23/16 05/28/21 Furosemide [Lasix] 20 mg PO BID PRN 12/23/16 05/28/21 Albuterol Inhaler (Mhu) [Ventolin 1 - 2 puff INHALATION RT-Q4H PRN 12/01/17 05/28/21 Hfa Inhaler (Mhu)] Ipratropium-Albuterol Nebulize 3 ml INHALATION QID 07/16/20 05/28/21 [Duoneb 0.5 mg-3 mg/3 ml Soln] Previous Rx's Medication Instructions Recorded Acetaminophen [Tylenol] 500 mg PO Q4-6H PRN #24 tab 06/21/21 Cyclobenzaprine [Flexeril] 10 mg PO TID PRN #20 tab 06/21/21 Naproxen [Naprosyn] 375 mg PO Q12HR PRN #20 tablet 06/21/21 Allergies Allergy/AdvReac Type Severity Reaction Status Date / Time cephalexin monohydrate AdvReac Itching Verified 06/21/21 00:22 [From Keflex] haloperidol [From Haldol] AdvReac Extrapyramidal Verified 06/21/21 00:22 Symptoms Review of Systems ROS Statement: Those systems with pertinent positive or pertinent negative responses have been documented in the HPI. ROS Other: All systems not noted in ROS Statement are negative. Past Medical History Past Medical History: COPD, GERD/Reflux, Liver Disease, Myocardial Infarction ([place]) Additional Past Medical History / Comment(s): [place] 2010. Seasonal ALLERGIES,UTIs,fatty liver,chronic sinus problems. Diverticular disease, IBS, Meniere's disease. 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 Last Myocardial Infarction Date:: 12-31-2010 History of Any Multi-Drug Resistant Organisms: None Reported Past Surgical History: Breast Surgery, Section, Tubal Ligation, Uterine Ablation Additional Past Surgical History / Comment(s): x2,hemorrhoidectomy. Colonoscopy 2020(next after 5yr). Left breast excisional bx. 2007 Past Anesthesia/Blood Transfusion Reactions: No Reported Reaction Past Psychological History: Anxiety, Bipolar, Depression Smoking Status: Current every day smoker Past Alcohol Use History: Rare Past Drug Use History: None Reported - Past Family History Mother Family Medical History: Cancer, COPD, Myocardial Infarction ([place]) Additional Family Medical History / Comment(s): Lung cancer. Maternal cousin had breast cancer. Father Family Medical History: Myocardial Infarction ([place]) Sister(s) Family Medical History: Diabetes Mellitus General Exam Limitations: no limitations Course Vital Signs 06/21/21 06/21/21 00:17 02:53 Temperature 97.9 F Pulse Rate 67 70 Respiratory 22 18 Rate Blood Pressure 121/73 122/79 O2 Sat by Pulse 96 99 Oximetry - Reevaluation(s) Reevaluation #1: 06/21/21 03:06 Medical record is reviewed Symptoms are improved here in the emergency department Patient is informed of results and questions answered Patient in no distress Medical Decision Making - Medical Decision Making -There are no red flags for concerning back pathology. Specifically: -No history of cancer, this is not a mass effect, MRI not indicated. -No anticoagulation, this is not a bleed. -No fevers, no IVDU, this is not an infectious process. -With a normal neuro exam, and no urinary or bowel retention or incontinence, there is no clinical sign of motor defect or cauda equina - MRI is not indicated at this point. -No pulsating abdominal mass or risk factors for AAA. -Pain is relieved with rest, which is also less concerning. -We will treat symptomatically and discharge home with follow up instructions. Patient was told to return to the ER for any signs or symptoms worsen. Told to return immediately if any other problems arise. All questions answered. Treatment plan discussed. Patient in agreement Every effort has been made to ensure accuracy of this dictation. However, due to the limitations of electronic medical records and dictation devices, errors in charting still occur. Disposition Clinical Impression: Acute lumbosacral myofascial strain, Cigarette smoker Disposition: HOME SELF-CARE Condition: Stable Instructions (If sedation given, give patient instructions): How to Stop Smoking (ED), Acute Low Back Pain (ED) Additional Instructions: Follow-up with your regular physician as directed. Return to the ER immediately if any symptoms worsen, new symptoms arise, or any other problems develop. Your x-ray did show an atheromatous abdominal aorta. I will up with your regular doctor regarding this. Prescriptions: Cyclobenzaprine [Flexeril] 10 mg PO TID PRN #20 tab PRN Reason: Spasms Naproxen [Naprosyn] 375 mg PO Q12HR PRN #20 tablet PRN Reason: Pain Acetaminophen [Tylenol] 500 mg PO Q4-6H PRN #24 tab PRN Reason: Pain Is patient prescribed a controlled substance at d/c from ED?: No Referrals: Katie Pisano [Primary Care Provider] - 1-2 days Time of Disposition: 02:57
== END 2021-06-21 03:10 | disposition home or self-care (01) ==
LOC: EC 23:58
DX: S39.012A Strain of muscle, fascia and tendon of lower back, initial encounter (principal); J44.9 Chronic obstructive pulmonary disease, unspecified; K21.9 Gastro-esophageal reflux disease without esophagitis; I25.2 Old myocardial infarction; F41.9 Anxiety disorder, unspecified; F31.9 Bipolar disorder, unspecified; F17.210 Nicotine dependence, cigarettes, uncomplicated; Z88.1 Allergy status to other antibiotic agents; Z87.440 Personal history of urinary (tract) infections; Z98.51 Tubal ligation status; X50.0XXA Overexertion from strenuous movement or load, initial encounter
CPT/HCPCS: 99283; 96372 ×2; 72110; J2360; J1885

== ENCOUNTER → 2021-10-23 | Outpatient (CLI) | payer MEDICARE, OTHER ==
--- NOTE | 2021-10-24 07:19 | USB ---
Reason for Exam: Follow-up at short interval from prior study. Patient History: Menarche at age 12. First Full-Term at age 18. Postmenopausal. Patient used Hormonal Contraceptives for 2 years. 12/15/2007, Excisional Biopsy on the Left side. 09/12/2020, US discontinued breast bx RT on the right side. 12/08/2007, Cancelled Left Mammotome on the left side. Maternal cousin had breast cancer, age 58. Risk Values: Nirali 5 year model risk: 1.0%. NCI Lifetime model risk: 6.9%. Technique: Method: Targeted. Prior Study Comparison: 02/22/2020 Right Diagnostic Mammogram, [facility]. 08/16/2020 Right Diagnostic Mammogram, [facility]. 04/04/2021 Bilateral Diagnostic Mammogram, [facility]. Findings: The upper outer quadrant of the right breast, the axilla of the right breast and the retroareolar of the right breast were scanned. No solid or cystic masses are identified. There is a stable slightly hypoechoic area which on orthogonal views may be related to Byron's ligaments. No suspicious change is evident. There is a lobule of breast tissue which appears prominent given the surrounding tissue. This is stable from comparison. Overall Assessment: Benign, BI-RAD 2 Management: Screening Mammogram of both breasts in 3 months. A clinical breast exam by your physician is recommended on an annual basis and results should be correlated with mammographic findings. Patient should continue monthly self breast exam. 3. Negative ultrasound or negative mammogram should not preclude biopsy of suspicious palpable abnormalities. Electronically signed and approved by: Gunner Littlejohn D.O. Radiologis
== END | disposition home or self-care (01) ==
LOC: RADMAMWWP 12:48
PROVIDERS: ATTEND Obstetrics & Gynecology
DX: R92.8 Other abnormal and inconclusive findings on diagnostic imaging of breast (principal); Z78.0 Asymptomatic menopausal state; Z80.3 Family history of malignant neoplasm of breast

== ENCOUNTER 2021-12-30 12:16 | Day surgery (SDC) | payer MEDICARE, OTHER ==
[2021-12-27 10:15] VITALS: BMI 27.2
[~2021-12-30 12:16] MED LIST changes: +LIDOCAINE 1% (10MG/ML) FOR IV START INTRADERMA PRN
[2021-12-30 12:45] VITALS: TEMP 97
[2021-12-30] MEDS ORDERED: PROPOFOL 10 MG/ML 20 ML VIAL IV ONE (13:29)
[2021-12-30] MEDS ORDERED: LIDOCAINE 2% INJ 20 MG/ML (2 ML VIAL) ONE (13:29)
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
--- NOTE | 2021-12-30 13:50 | P.OP ---
Date of Procedure: 12/30/21 Preoperative Diagnosis: GI bleed Postoperative Diagnosis: Internal and external hemorrhoids Mild diverticulosis Poor colon prep Procedure(s) Performed: Colonoscopy Anesthesia: MAC Surgeon: Quan Perez Pathology: none sent Condition: stable Disposition: PACU Description of Procedure: The patient's placed on the endoscopy table in the lateral position. She received IV sedation. Digital rectal exam was performed which revealed internal and external hemorrhoids. The flexible colonoscope was then placed patient anus and passed throughout the entire colon. The ileocecal valve was visually is. There was a large amount liquid stool in the cecum which prevented a good view of the mucosa. No obvious ebonized seen. Scope withdrawn. The remainder of the ascending colon appeared normal. The transverse colon appeared normal. In the descending and sigmoid: There was a few scattered diverticuli. The scope was brought back the rectum and this appeared normal. Scope withdrawn for patient. There is no evidence of any GI bleed. Presumed patient may have had bleeding from hemorrhoids.
[2021-12-30 14:38] VITALS: BP 143/82; PULSE 53; RESP 17
== END 2021-12-30 15:04 | disposition home or self-care (01) ==
LOC: ORWHC2ENDO 12:16
PROVIDERS: ATTEND Surgery
DX: K92.2 Gastrointestinal hemorrhage, unspecified (principal); K64.4 Residual hemorrhoidal skin tags; K64.8 Other hemorrhoids; J44.9 Chronic obstructive pulmonary disease, unspecified; K21.9 Gastro-esophageal reflux disease without esophagitis; E78.5 Hyperlipidemia, unspecified; K76.9 Liver disease, unspecified; I25.2 Old myocardial infarction; F41.9 Anxiety disorder, unspecified; F17.210 Nicotine dependence, cigarettes, uncomplicated; Z98.51 Tubal ligation status; Z98.891 History of uterine scar from previous surgery; Z98.890 Other specified postprocedural states; Z86.59 Personal history of other mental and behavioral disorders; F31.9 Bipolar disorder, unspecified; Z83.6 Family history of other diseases of the respiratory system; Z80.1 Family history of malignant neoplasm of trachea, bronchus and lung; Z80.6 Family history of leukemia; Z80.7 Family history of other malignant neoplasms of lymphoid, hematopoietic and related tissues; Z80.41 Family history of malignant neoplasm of ovary; Z80.3 Family history of malignant neoplasm of breast; Z82.49 Family history of ischemic heart disease and other diseases of the circulatory system; Z83.3 Family history of diabetes mellitus; Z79.51 Long term (current) use of inhaled steroids; Z79.01 Long term (current) use of anticoagulants; Z79.899 Other long term (current) drug therapy; Z88.1 Allergy status to other antibiotic agents; Z88.8 Allergy status to other drugs, medicaments and biological substances
CPT/HCPCS: 45378; J2704; J2001

== ENCOUNTER 2022-01-08 09:03 | Day surgery (SDC) | payer MEDICARE, OTHER ==
[~2022-01-08 09:03] MED LIST changes: +ACETAMINOPHEN TAB 500 MG TAB PO PRN; +DEXAMETHASONE SOD PHOSPHATE 4 MG/ML 1 ML VIAL IV ONE; +HEPARIN SODIUM,PORCINE/PF 5,000 UNIT/0.5 ML SYRINGE SQ PRN; +HYDROmorphone 0.5 MG/0.5 ML SYRINGE IVP PRN; +MIDAZOLAM 2 MG/2 ML VIAL IV PRN; +ONDANSETRON 4 MG/2 ML VIAL IVP ONE; +Pre Op ABX Message 1 EACH MISC MISCELLANE ONE
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
[2022-01-08] MEDS ORDERED: MIDAZOLAM 2 MG/2 ML VIAL ONE (10:14)
[2022-01-08] MEDS ORDERED: fentaNYL (PF) 50 MCG/ML 2 ML AMP ONE (10:14)
[2022-01-08] MEDS ORDERED: BUPIVACAINE (PF) 0.25% 30 ML VIAL SQ ONE ×2 (10:15)
[2022-01-08] MEDS ORDERED: GELATIN SPONGE,ABSORB (LARGE) 1 EACH SPONGE TOPICAL ONE (10:52)
--- NOTE | 2022-01-08 11:01 | P.OP ---
Date of Procedure: 01/08/22 Preoperative Diagnosis: Internal and external hemorrhoids Postoperative Diagnosis: Internal and external hemorrhoids Procedure(s) Performed: Internal and external hemorrhoidectomy Anesthesia: MED Surgeon: Quan Perez Estimated Blood Loss (ml): 5 Pathology: other (Internal and external hemorrhoids) Condition: stable Disposition: PACU Description of Procedure: Patient's placed on the operative table in the prone jackknife position after receiving spinal anesthetic and IV sedation. Her anus was prepped and draped usual fashion. The patient had large internal/external hemorrhoids. The anal retractors placed anus. And then the right anterior hemorrhoid column was grasp ed with a pair of Allis clamps and then removed using the Harmonic scissors. The left lateral hemorrhoidal column was removed in identical fashion on the right posterior hemorrhoid column was removed in identical fashion. The was retrieved cyst. There is no bleeding seen. The anus was anesthetized 1% local Xylocaine. Patient top she will was sent to recovery room in stable condition.
[2022-01-08 11:05] VITALS: TEMP 97.6
[2022-01-08 11:25] VITALS: RESP 16
[2022-01-08 12:30] VITALS: BP 122/72; PULSE 65
== END 2022-01-08 13:06 | disposition home or self-care (01) ==
LOC: OR 09:03
PROVIDERS: ATTEND Surgery
DX: K64.4 Residual hemorrhoidal skin tags (principal); K64.8 Other hemorrhoids; K21.9 Gastro-esophageal reflux disease without esophagitis; E78.5 Hyperlipidemia, unspecified; I25.2 Old myocardial infarction; K76.0 Fatty (change of) liver, not elsewhere classified; F17.200 Nicotine dependence, unspecified, uncomplicated; Z87.448 Personal history of other diseases of urinary system; Z86.69 Personal history of other diseases of the nervous system and sense organs; Z87.19 Personal history of other diseases of the digestive system; Z98.51 Tubal ligation status; Z98.891 History of uterine scar from previous surgery; Z83.6 Family history of other diseases of the respiratory system; Z80.1 Family history of malignant neoplasm of trachea, bronchus and lung; Z80.3 Family history of malignant neoplasm of breast; Z83.3 Family history of diabetes mellitus; Z82.49 Family history of ischemic heart disease and other diseases of the circulatory system; Z79.51 Long term (current) use of inhaled steroids; Z79.83 Long term (current) use of bisphosphonates; Z79.899 Other long term (current) drug therapy; Z79.01 Long term (current) use of anticoagulants; Z79.82 Long term (current) use of aspirin; Z88.1 Allergy status to other antibiotic agents; Z88.8 Allergy status to other drugs, medicaments and biological substances
CPT/HCPCS: 46260; J2250; J1100; J2405; J3010; J1644; 88304

== ENCOUNTER → 2022-03-04 | Outpatient (CLI) | payer MEDICARE, OTHER ==
[2022-03-04 11:13] VITALS: BP 125/82; PULSE 67; RESP 16; TEMP 98.9
--- NOTE | 2022-03-04 11:58 | P.PN ---
Progress Note - Text Progress Note Date: 03/04/22 Chief Complaint: Pain with sexual intercourse which has been gradually getting worse over the past 2 years. HPI: This is a 56-year-old with an LMP of 2016. The patient has noticed worsening pain with intercourse which has been gradually getting worse over the past 2 years. She has tried eafk-dzn-bnizgfx lubricants without success. She also tried Replens vaginal moisturizer without improvement. Some days she even feels that the vagina is dry even when she is not having sex. She says it feels like the vaginal lining is being stripped and this causes burning with sexual intercourse. She has had occasional vaginal itching without odor or discharge. ROS: She denies cardiac problems. Respiratory: Occasional COPD symptoms. GI: She had hemorrhoid surgery this past year and has occasional itching in the hemorrhoid region. PE: Blood pressure: 125/82, Height: 5 feet 2 inches, Weight: And 153 pounds, Temperature: 98.9, Pulse:67. Pulse oximeter 98%. This is a well developed, well nourished, white female who is alert and orientedx3, in no acute distress. External genitalia: Mild to moderate atrophy without lesions. There is no evidence of pallor or erythema. Vagina: There is a small amount of thick creamy white discharge in the back of the vagina. There is no odor. The vaginal mucosa reveals mild to moderate atrophy. The vagina is relatively small and there seems to be contraction of the perivaginal muscles upon exam. Cervix: Appears atrophic and normal. Bimanual examination: No evidence of prolapse. The uterus is mid positioned, nongravid size, and nontender. There are no palpable adnexal masses or tenderness. Impression: 1. 56-year-old menopausal female with dyspareunia secondary to genital atrophy and vaginal dryness, not improved with cjdk-zlc-dunclve lubrication or wnbs-bpt-vzgnozg vaginal moisturizer. 2. Occasional vaginal pruritus with a small amount of whitish discharge in the vagina. Possible yelitza vaginitis. I doubt this is causing the dyspareunia in #1. Plan: 1. Affirm vaginitis panel will be sent. 2. Trial of Premarin vaginal cream, 1 g into the vagina every other day for 2 weeks, then 2 times weekly. The electronic prescription will be sent to [facility]. She does not have any history of breast or uterine cancer. 3. I have also suggested that she use lubrication or possibly lubricated condoms as well. 4. She will return in approximately 3 months for her annual well woman examination. At that time she will be due for a repeat Pap smear cotest and mammogram. Time spent with the patient: 20 minutes
--- NOTE | 2022-03-18 15:24 | P.PN ---
Progress Note - Text Progress Note Date: 03/18/22 OUTPATIENT FOLLOW-UP NOTE TEST(S)/RESULTS: Affirm vaginitis panel was negative for Enedelia, Gardnerella, and Trichomonas. METHOD OF NOTIFICATION: The patient was previously notified by phone on 03/06/2022. (late entry) PATIENT COMMENTS: DIAGNOSIS: Negative affirm vaginitis panel. DISCUSSION: I spoke with the patient by phone today, 03/18/2022. I have received a letter from [employer], her prescription insurance company. They state that Estring vaginal ring is available to her at the amount listed in her planned documents and authorization is not needed. The patient states she has not received this letter. A copy of this letter will be mailed to the patient. PLAN: As above. She was advised to return in one year for her annual well woman exam and as needed.
== END ==
LOC: WWCWWP 11:02
PROVIDERS: ATTEND Obstetrics & Gynecology
DX: Z53.9 Procedure and treatment not carried out, unspecified reason (principal)

== ENCOUNTER → 2022-06-23 | Outpatient (CLI) | payer MEDICARE, OTHER ==
--- NOTE | 2022-06-23 12:40 | P.PN ---
Progress Note - Text Progress Note Date: 06/23/22 A fax was received from [facility] pharmacy indicating the patient has received her last refill on her prescription. The prescription was for Etonogestrel-ethinyl estradiol Ring. Her prescription from February 2022 was for Estring, not Etonogestrel-ethinyl estradiol Ring. I spoke with the pharmacist today, on 06/23/2022, she checked the original prescription and she states there was a dispensing error and the patient will be given the incorrect prescription. I spoke with the patient by phone today telling her that she is using the incorrect vaginal ring and the pharmacy should be contacting her to dispense the proper ring. She was instructed to remove the current ring now. She was warned that she may have a withdrawal bleed after removing the ring. She can then begin using the Estring as directed after it is dispensed from the pharmacy. The pharmacist has indicated to me that she will fill out an incident report since they were dispensing the wrong prescription. The patient was instructed to call if she has any questions or problems. She states she will be seeing me within the next few months for her annual exam.
== END ==
LOC: WWCWWP 12:18
PROVIDERS: ATTEND Obstetrics & Gynecology
DX: Z30.44 Encounter for surveillance of vaginal ring hormonal contraceptive device (principal); Z88.1 Allergy status to other antibiotic agents; Z88.8 Allergy status to other drugs, medicaments and biological substances; Z79.82 Long term (current) use of aspirin; F17.200 Nicotine dependence, unspecified, uncomplicated

== ENCOUNTER → 2022-07-22 | Outpatient (CLI) | payer MEDICARE, OTHER ==
[2022-07-22 10:51] VITALS: BP 155/85; PULSE 87; RESP 17; TEMP 98.1
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
--- NOTE | 2022-07-23 07:55 | MM ---
Reason for Exam: Screening (asymptomatic). Last mammogram was performed 1 year(s) and 3 month(s) ago. Patient History: Menarche at age 12. First Full-Term at age 18. Postmenopausal. Patient used Hormonal Contraceptives for 2 years. 12/15/2007, Excisional Biopsy on the Left side. 09/12/2020, US discontinued breast bx RT on the right side. 12/08/2007, Cancelled Left Mammotome on the left side. Maternal cousin had breast cancer, age 58. Maternal cousin had breast cancer, age 55. Risk Values: Nirali 5 year model risk: 1.1%. NCI Lifetime model risk: 6.7%. Prior Study Comparison: 02/22/2020 Right Diagnostic Mammogram, [facility]. 08/16/2020 Right Diagnostic Mammogram, [facility]. 04/04/2021 Bilateral Diagnostic Mammogram, [facility]. Tissue Density: There are scattered fibroglandular densities. Findings: Analyzed By CAD. There is no suspicious group of microcalcifications or new suspicious mass in either breast. Overall Assessment: Negative, BI-RAD 1 Management: Screening Mammogram of both breasts in 1 year. A clinical breast exam by your physician is recommended on an annual basis and results should be correlated with mammographic findings. [facility] will attempt to contact patient to return for supplemental views and ultrasound if indicated. Electronically signed and approved by: Javy Trinh DO
[2022-07-24 14:06] LABS: Gardnerella Negative (Negative); Source Vagina; Trichomonas Negative (Negative)
== END | disposition home or self-care (01) ==
LOC: RADMAMWWP 09:42
PROVIDERS: ATTEND Obstetrics & Gynecology
DX: Z12.31 Encounter for screening mammogram for malignant neoplasm of breast (principal); E78.5 Hyperlipidemia, unspecified; Z78.0 Asymptomatic menopausal state
CPT/HCPCS: 77063; 77067; 87480; 87510; 87660

== ENCOUNTER 2022-12-10 20:36 | Emergency (ER) | payer MEDICARE, OTHER ==
[2022-12-10 21:11] LABS: Basophils # (A) 0.1 k/uL (0-0.2); Basophils % (A) 1 %; Eosinophils # (A) 0.4 k/uL (0-0.7); Eosinophils % (A) 3 %; HCT 38.5 % (34.0-46.0); HGB 12.9 gm/dL (11.4-16.0); Lymphocytes # (A) 3.9 k/uL (1.0-4.8); Lymphocytes % (A) 36 %; MCH 31.2 pg (25.0-35.0); MCHC 33.5 g/dL (31.0-37.0); MCV 93.2 fL (80.0-100.0); Mean Platelet Volume 7.5; Monocytes # (A) 0.6 k/uL (0-1.0); Monocytes % (A) 5 %; Neutrophils # (A) 5.8 k/uL (1.3-7.7); Neutrophils % (A) 53 %; Platelet Count 297 k/uL (150-450); RBC 4.13 m/uL (3.80-5.40); RDW 12.5 % (11.5-15.5); WBC 10.8 k/uL (3.8-10.6)
[2022-12-10 21:23] LABS: ALT 30 U/L (4-34); AST 25 U/L (14-36); African American GFR (CKD) >90 (>60 ml/min/1.73 sqM); Alkaline Phosphatase 47 U/L (38-126); Anion Gap 4 mmol/L; Blood Urea Nitrogen 11 mg/dL (7-17); Calcium 9.4 mg/dL (8.4-10.2); Carbon Dioxide 28 mmol/L (22-30); Chloride 103 mmol/L (98-107); Glucose 99 mg/dL (74-99); Non-African American GFR(CKD) >90 (>60 ml/min/1.73 sqM); Sodium 135 mmol/L (137-145); Total Bilirubin 0.2 mg/dL (0.2-1.3); Total Protein 6.5 g/dL (6.3-8.2)
[2022-12-10 21:26] LABS: INR 0.9 (<1.2); Partial Thromboplastin Time 23.8 sec (22.0-30.0); Prothrombin Time 9.9 sec (9.0-12.0)
--- NOTE | 2022-12-10 22:41 | XR ---
EXAM: XR Chest, 2 Views CLINICAL HISTORY: ITS.REASON XR Reason: difficulty breathing TECHNIQUE: Frontal and lateral views of the chest. COMPARISON: No relevant prior studies available. FINDINGS: Lungs: Unremarkable. No consolidation. Pleural space: Unremarkable. No pneumothorax. Heart: Unremarkable. No cardiomegaly. Mediastinum: Unremarkable. Bones/joints: Unremarkable. IMPRESSION: Normal chest x-rays.
[2022-12-10] MEDS ORDERED: IBUPROFEN 600 MG TAB PO STA (23:08)
[2022-12-10] MEDS ORDERED: ACETAMINOPHEN TAB 500 MG TAB PO STA (23:08)
[2022-12-10] MEDS ORDERED: SODIUM CHLORIDE 0.9% 1,000 ML IV ONE (23:08)
[2022-12-11 00:27] LABS: Appearance,Urine Clear (Clear); Bilirubin,Urine Negative (Negative); Blood,Urine Negative (Negative); Color,Urine Colorless; Glucose,Urine (UA) Negative (Negative); Ketones,Urine Negative (Negative); Leukocyte Esterase,Urine Negative (Negative); Nitrite,Urine Negative (Negative); Protein,Urine Negative (Negative); Specific Gravity,Urine 1.005 (1.001-1.035); Urobilinogen,Urine <2.0 mg/dL (<2.0)
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
[2022-12-11 15:49] VITALS: BP 146/75; PULSE 67; RESP 18; TEMP 98.3
== END 2022-12-11 00:41 | disposition home or self-care (01) ==
LOC: EC 20:36
DX: J40 Bronchitis, not specified as acute or chronic (principal); E78.5 Hyperlipidemia, unspecified; J44.9 Chronic obstructive pulmonary disease, unspecified; K21.9 Gastro-esophageal reflux disease without esophagitis; I25.2 Old myocardial infarction; F41.9 Anxiety disorder, unspecified; F31.9 Bipolar disorder, unspecified; F17.200 Nicotine dependence, unspecified, uncomplicated; Z79.82 Long term (current) use of aspirin; Z79.899 Other long term (current) drug therapy; Z79.51 Long term (current) use of inhaled steroids; Z20.822 Contact with and (suspected) exposure to COVID-19; Z88.1 Allergy status to other antibiotic agents; Z88.8 Allergy status to other drugs, medicaments and biological substances
CPT/HCPCS: 36415; 71046; 80053; 81003; 84484; 85025; 85610; 85730; 87636; 93005; 99285

== ENCOUNTER 2022-12-13 21:38 | Inpatient (IN) | payer MEDICARE, OTHER ==
[2022-12-13] MEDS ORDERED: ALBUTEROL NEBULIZED 2.5 MG/3 ML INHALATION STA (22:26)
[2022-12-13] MEDS ORDERED: IPRATROPIUM 0.5 MG/2.5 ML NEBU INHALATION STA (22:26)
[2022-12-13] MEDS ORDERED: dexAMETHasone 2 MG TAB PO STA (22:26)
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
--- NOTE | 2022-12-14 00:22 | XR ---
EXAM: XR Chest, 2 Views CLINICAL HISTORY: ITS.REASON XR Reason: CP TECHNIQUE: Frontal and lateral views of the chest. COMPARISON: No relevant prior studies available. FINDINGS: Lungs: Unremarkable. No consolidation. Pleural space: Unremarkable. No pneumothorax. Heart: Unremarkable. No cardiomegaly. Mediastinum: Unremarkable. Bones/joints: Unremarkable. IMPRESSION: Normal chest x-rays.
[2022-12-14] MEDS ORDERED: NALOXONE 0.4 MG/ML 1 ML VIAL IV PRN (02:20)
[2022-12-14] MEDS: IPRATROPIUM-ALBUTEROL 3 ML NEB INHALATION SCH ×6 (03:48→23:36)
[2022-12-14 11:10] LABS: Basophils % (A) 0 %; Eosinophils % (A) 0 %; HCT 39.6 % (34.0-46.0); HGB 13.3 gm/dL (11.4-16.0); Lymphocytes # (A) 1.8 k/uL (1.0-4.8); Lymphocytes % (A) 16 %; MCH 31.5 pg (25.0-35.0); MCHC 33.6 g/dL (31.0-37.0); MCV 93.8 fL (80.0-100.0); Mean Platelet Volume 7.5; Monocytes # (A) 0.9 k/uL (0-1.0); Monocytes % (A) 8 %; Neutrophils # (A) 8.1 k/uL (1.3-7.7); Neutrophils % (A) 74 %; Platelet Count 313 k/uL (150-450); RBC 4.22 m/uL (3.80-5.40); RDW 12.4 % (11.5-15.5); WBC 11.1 k/uL (3.8-10.6)
[2022-12-14 11:20] LABS: African American GFR (CKD) >90 (>60 ml/min/1.73 sqM); Anion Gap 5 mmol/L; Blood Urea Nitrogen 17 mg/dL (7-17); Calcium 9.5 mg/dL (8.4-10.2); Carbon Dioxide 32 mmol/L (22-30); Chloride 99 mmol/L (98-107); Glucose 92 mg/dL (74-99); Magnesium 1.8 mg/dL (1.6-2.3); Non-African American GFR(CKD) >90 (>60 ml/min/1.73 sqM); Potassium 4.5 mmol/L (3.5-5.1); Sodium 136 mmol/L (137-145)
[2022-12-14] MEDS: AZITHROMYCIN 250 MG TAB PO SCH (11:36)
[2022-12-14] MEDS: ASPIRIN 81 MG PO SCH (11:37)
[2022-12-14] MEDS: CHOLECALCIFEROL 125 MCG (5000 IU) TABLET PO SCH (11:37)
[2022-12-14] MEDS: methylPREDNISolone SOD SUCCI 125 MG/2 ML VIAL IV SCH ×2 (11:37→17:27)
[2022-12-14] MEDS: ATORVASTATIN 40 MG TAB PO SCH (11:37)
[2022-12-14] MEDS: FLUoxetine HCL 20 MG CAP PO SCH (11:37)
[2022-12-14] MEDS: NICOTINE 21MG/24HR PATCH TRANSDERM SCH (11:37)
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
[2022-12-14] MEDS: HEPARIN SODIUM,PORCINE 5,000 UNIT/ML 1 ML VIAL SQ SCH (17:27)
[2022-12-14] MEDS: BUDESONIDE 0.5 MG/2 ML NEBU INHALATION SCH (19:35)
[2022-12-14] MEDS: FORMOTEROL FUMARATE 20 MCG/2 ML NEBU INHALATION SCH (19:35)
[2022-12-14] MEDS: DIVALPROEX ER 500 MG TAB.ER.24H PO SCH (20:22)
[2022-12-15] MEDS: HEPARIN SODIUM,PORCINE 5,000 UNIT/ML 1 ML VIAL SQ SCH ×4 (00:16→23:47)
[2022-12-15] MEDS: methylPREDNISolone SOD SUCCI 125 MG/2 ML VIAL IV SCH ×5 (00:16→23:47)
[2022-12-15] MEDS: IPRATROPIUM-ALBUTEROL 3 ML NEB INHALATION SCH ×5 (03:50→19:46)
[2022-12-15] MEDS: AZITHROMYCIN 250 MG TAB PO SCH (08:20)
[2022-12-15] MEDS: ATORVASTATIN 40 MG TAB PO SCH (08:20)
[2022-12-15] MEDS: ASPIRIN 81 MG PO SCH (08:20)
[2022-12-15] MEDS: FLUoxetine HCL 20 MG CAP PO SCH (08:20)
[2022-12-15] MEDS: NICOTINE 21MG/24HR PATCH TRANSDERM SCH (08:20)
[2022-12-15] MEDS: CHOLECALCIFEROL 125 MCG (5000 IU) TABLET PO SCH (08:20)
[2022-12-15] MEDS: BUDESONIDE 0.5 MG/2 ML NEBU INHALATION SCH (08:52)
[2022-12-15] MEDS: FORMOTEROL FUMARATE 20 MCG/2 ML NEBU INHALATION SCH ×2 (08:52→19:46)
[2022-12-15 10:57] LABS: Basophils # (A) 0.01 X 10*3/uL (0.00-0.10); Basophils % (A) 0.1 %; Eosinophils # (A) 0 X 10*3/uL (0.04-0.35); Eosinophils % (A) 0 %; HGB 12.8 d/dL (12.0-15.0); Lymphocytes % (A) 13.4 %; MCH 31.3 pg (27.0-32.0); MCHC 33.7 d/dL (32.0-37.0); MCV 92.9 FL (80.0-97.0); Mean Platelet Volume 10.3 FL (9.5-12.2); Monocytes # (A) 0.71 X 10*3/uL (0.20-1.00); Monocytes % (A) 4.7 %; NRBC Per 100 WBC 0 X 10*3/uL (0.00-0.01); Neutrophils # (A) 12.16 X 10*3/uL (1.80-7.70); Neutrophils % (A) 81.2 %; Platelet Count 309 X 10*3/uL (140-440); RBC 4.09 X 10*6/uL (4.10-5.20); RDW 12.8 % (11.5-14.5); WBC 14.97 X 10*3/uL (4.50-10.00)
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
[2022-12-15 14:30] LABS: Calcium 9.2 mg/dL (8.7-10.3); Carbon Dioxide 27.6 mmol/L (21.6-31.8); Chloride 101 mmol/L (96-109); Glucose 156 mg/dL (70-110); Potassium 4.1 mmol/L (3.5-5.5); Sodium 137 mmol/L (135-145)
[2022-12-15] MEDS: BUDESONIDE 1 MG/2 ML NEBU INHALATION SCH (19:46)
[2022-12-15] MEDS ORDERED: IPRATROPIUM-ALBUTEROL 3 ML NEB INHALATION PRN (19:51)
[2022-12-15] MEDS ORDERED: ACETAMINOPHEN TAB 325 MG TAB PO PRN (20:21)
[2022-12-15] MEDS: DIVALPROEX ER 500 MG TAB.ER.24H PO SCH (20:38)
--- NOTE | 2022-12-15 23:52 | PN ---
PROGRESS NOTE DATE OF SERVICE: 12/15/2022 SUBJECTIVE: This is a 57-year-old woman, who was admitted with COPD acute exacerbation, has been closely monitored. No chest pain. No palpitations. No fever. OBJECTIVE: VITAL SIGNS: Pulse is 68, blood pressure 140/70, respirations 23. CHEST: A few scattered rhonchi and crackles. Expiratory wheezing. ABDOMEN: Soft. NERVOUS SYSTEM: Nonfocal. LABORATORY DATA: Reviewed. ASSESSMENT: 1. Chronic obstructive pulmonary disease acute exacerbation with acute tracheobronchitis. 2. Acute hypoxic respiratory failure. 3. History of seizure disorder. 4. History of nicotine dependence. 5. Multiple medical issues. RECOMMENDATIONS AND DISCUSSION: Recommend to continue current management. Continue symptomatic treatment. Bronchodilators. Continue with steroids. Closely follow with Pulmonary. Guarded prognosis. Further recommendations to follow. MMODL / IJN: [id number] /
[2022-12-16] MEDS: methylPREDNISolone SOD SUCCI 125 MG/2 ML VIAL IV SCH (06:15)
[2022-12-16 07:46] VITALS: BP 164/82; RESP 22; TEMP 98.4
[2022-12-16] MEDS: FORMOTEROL FUMARATE 20 MCG/2 ML NEBU INHALATION SCH (08:11)
[2022-12-16] MEDS: IPRATROPIUM-ALBUTEROL 3 ML NEB INHALATION SCH ×2 (08:11→11:08)
[2022-12-16] MEDS: BUDESONIDE 1 MG/2 ML NEBU INHALATION SCH (08:11)
[2022-12-16] MEDS: FLUoxetine HCL 20 MG CAP PO SCH (08:47)
[2022-12-16] MEDS: ATORVASTATIN 40 MG TAB PO SCH (08:47)
[2022-12-16] MEDS: ASPIRIN 81 MG PO SCH (08:47)
[2022-12-16] MEDS: NICOTINE 21MG/24HR PATCH TRANSDERM SCH (08:47)
[2022-12-16] MEDS: CHOLECALCIFEROL 125 MCG (5000 IU) TABLET PO SCH (08:47)
[2022-12-16] MEDS: HEPARIN SODIUM,PORCINE 5,000 UNIT/ML 1 ML VIAL SQ SCH (08:47)
[2022-12-16 11:20] VITALS: PULSE 76
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
--- NOTE | 2022-12-16 14:16 | PN ---
PROGRESS NOTE DATE OF SERVICE: 12/16/2022 This is a 57-year-old woman who was admitted with COPD acute exacerbation and acute. DICTATION ENDS ABRUPTLY. MMODL / IJN: [id number] /
--- NOTE | 2022-12-16 14:46 | DS ---
DISCHARGE SUMMARY FINAL DIAGNOSES: 1. Chronic obstructive pulmonary disease acute exacerbation with acute purulent tracheobronchitis. 2. Acute hypoxic respiratory failure. 3. History of seizure disorder. 4. History of nicotine dependence. 5. Multiple medical issues. DISCHARGE DISPOSITION: The patient will be discharged in stable condition with guarded prognosis. Dr. Jacobson cleared her for discharge. HISTORY OF PRESENT ILLNESS: This is a 57-year-old woman, who was admitted with shortness of breath and COPD exacerbation. The patient improved significantly. PHYSICAL EXAMINATION: VITAL SIGNS: Stable. CARDIOVASCULAR: S1 and S2. RESPIRATORY: Few scattered rhonchi. Pulmonology cleared the patient for discharge. The patient will be discharged in stable condition with guarded prognosis. Follow up with Dr. Rose in 2 to 3 days. Follow up with Dr. Jacobson as advised. Resume the home medications: 1. DuoNeb q.i.d. and p.r.n. 2. Habitrol 21 daily. 3. Prednisone taper. MMODL / IJN: [id number] /
[2022-12-17] MEDS ORDERED: predniSONE 20 MG TAB PO SCH (09:00)
== END 2022-12-16 12:45 | disposition home or self-care (01) | DRG 189 ==
LOC: EC 21:38 → 6NMEDSUR 12-14 02:20 → 4SSUR 12-14 05:04 → OBSVTOIN 12-15 13:57
PROVIDERS: ADMIT Hospitalist; ATTEND Hospitalist
DX: J96.01 Acute respiratory failure with hypoxia (principal); J44.1 Chronic obstructive pulmonary disease with (acute) exacerbation; J44.0 Chronic obstructive pulmonary disease with (acute) lower respiratory infection; I42.9 Cardiomyopathy, unspecified; K58.2 Mixed irritable bowel syndrome; J20.9 Acute bronchitis, unspecified; I25.2 Old myocardial infarction; K44.9 Diaphragmatic hernia without obstruction or gangrene; E78.5 Hyperlipidemia, unspecified; F17.210 Nicotine dependence, cigarettes, uncomplicated; Z86.16 Personal history of COVID-19; Z82.5 Family history of asthma and other chronic lower respiratory diseases; Z82.49 Family history of ischemic heart disease and other diseases of the circulatory system; Z83.3 Family history of diabetes mellitus; Z86.010 Personal history of colon polyps; F31.9 Bipolar disorder, unspecified; F41.9 Anxiety disorder, unspecified; G40.909 Epilepsy, unspecified, not intractable, without status epilepticus; H81.09 Meniere's disease, unspecified ear; K57.30 Diverticulosis of large intestine without perforation or abscess without bleeding; K76.0 Fatty (change of) liver, not elsewhere classified; Z20.822 Contact with and (suspected) exposure to COVID-19; Z87.440 Personal history of urinary (tract) infections; Z88.1 Allergy status to other antibiotic agents; Z88.8 Allergy status to other drugs, medicaments and biological substances; Z79.82 Long term (current) use of aspirin; Z79.899 Other long term (current) drug therapy; Z79.51 Long term (current) use of inhaled steroids
CPT/HCPCS: 71046; 80048; 83735; 85025; 87636; 94640; 94644; 94760; 99285

== ENCOUNTER → 2023-01-07 | Outpatient (CLI) | payer MEDICARE, OTHER ==
--- NOTE | 2023-01-07 09:29 | CTL ---
EXAMINATION TYPE: CT Low Dose Lung DATE OF EXAM ORDERED: 01/07/2023 HISTORY: 57-year-old female Z12.2 ENCNTR SCREEN FOR MALIGNANT NEOPLASM Z87.89, current smoker with a 30 pack-year history. Lung cancer screening CT DLP: 72.[address] CTDI: 2.0 mGy Automated exposure control for dose reduction was used. SCREENING VISIT: Baseline COMPARISON: 04/04/2016 TECHNIQUE: Low dose computed tomography scan was performed through the chest with coronal and sagitta l reconstructions. CT DIAGNOSTIC QUALITY: Satisfactory FINDINGS: Heart normal size without pericardial effusion. Aorta normal caliber mild atherosclerotic arch calcifications and conventional arch vessel branching anatomy. No thoracic lymphadenopathy by CT size criteria. Moderate diffuse emphysematous change. Mild to moderate diffuse bronchial wall thickening. Biapical p leural parenchymal scarring. Calcified granuloma anteromedial left mid lung, axial image 101. 4 mm anterior right upper lobe pulmonary nodule, axial image 109. 4 mm lateral right upper lobe pulmonary nodule, axial image 44. No suspicious greater than 4 mm pulmonary nodule is seen. No consolidation or pleural effusion. Small hilar splenule. Small amount of focal fat along the anterior falciform ligament. Visualized upp er abdomen otherwise shows no gross abnormality. Bones: Mild degenerative disc disease mid to lower thoracic spine. IMPRESSION: 1. LungRADS 2, benign. A couple 4 mm pulmonary nodules on baseline screening. 2. COPD with moderate emphysema. Recommend smoking cessation. CT LUNG RAD AND CT CHEST RECOMMENDATION: Lung-Rad 2 Benign Appearance or Behavior: Continue annual sc reening with LDCT in 12 months. S Modifier (other clinically significant findings): None
== END | disposition home or self-care (01) ==
LOC: RADCTMAIN 08:06
PROVIDERS: ATTEND Internal Medicine
DX: Z12.2 Encounter for screening for malignant neoplasm of respiratory organs (principal); J43.9 Emphysema, unspecified; F17.210 Nicotine dependence, cigarettes, uncomplicated; R91.8 Other nonspecific abnormal finding of lung field
CPT/HCPCS: 71271

== ENCOUNTER → 2023-04-29 | Outpatient (CLI) | payer MEDICARE, OTHER ==
--- NOTE | 2023-04-29 12:13 | CT ---
EXAMINATION TYPE: CT sinus wo con CT DLP: 438 mGycm, Automated exposure control for dose reduction was used. DATE OF EXAM: 04/29/2023 11:33 AM COMPARISON: None. CLINICAL INDICATION:Female, 57 years old with history of J32.0 CHRONIC MAXILLARY SINUSITIS; PHH, sinu s congestion x 5 months CONTRAST: None. TECHNIQUE: Multiple thin axial images were obtained through the paranasal sinuses without the use of IV contrast. Additional coronal and sagittal reformatted images were submitted for evaluation. FINDINGS: Frontal sinuses: Normally developed and aerated. Frontal Recess: Clear Maxillary Sinuses: Normally developed and aerated. Maxillary Infundibula([facility]): Clear, right-sided Mary cell without narrowing.. Ethmoid sinuses: Normally developed and aerated. Ethmoidal notch: Protected and abutting the lateral lamina. Sphenoid sinuses: Normally developed and aerated. There is sellar sphenoid sinus pneumatization witho ut evidence of dehiscence. No dehiscence of carotid canal. No evidence of optic nerve dehiscence wit hin the sphenoid sinus. Sphenoethmoidal recesses: Clear. Nasal septum: Within normal limits.. Nasal Turbinates: A neida bullosa defect is seen involving the left middle turbinate. Mastoid air cells & middle ears: The air cells are clear. The middle ears are grossly unremarkable. Modified Soft tissues & Brain: Partially seen without gross abnormality. Globes are intact. Other: Cribriform plate demonstrates symmetric Keros classification type 2 cribriform plate. No evidence of bony dehiscence of skull base. Lamina papyracea is intact without evidence of remote orbital fracture or orbital prolapse into the e thmoid sinus. IMPRESSION: 1. No significant mucosal sinus disease. 2. The ostiomeatal units, frontonasal and sphenoethmoidal recesses are clear.
== END | disposition home or self-care (01) ==
LOC: RADCTMAIN 11:10
PROVIDERS: ATTEND Internal Medicine
DX: J32.0 Chronic maxillary sinusitis (principal)
CPT/HCPCS: 70486

== ENCOUNTER → 2023-06-13 | Outpatient (CLI) | payer MEDICARE, OTHER ==
[2023-06-15 13:49] LABS: Alternaria alternata IgE <0.10 kU/L; Aspergillus fumagatus IgE <0.10 kU/L; Birch IgE <0.10 kU/L; Cat Epith & Dander IgE <0.10 kU/L; Cladosporian herbarum IgE <0.10 kU/L; Dermato. farinae IgE <0.10 kU/L; Dog Dander IgE <0.10 kU/L; Elm IgE <0.10 kU/L; Oak IgE <0.10 kU/L; Ragweed,Common IgE <0.10 kU/L
== END | disposition home or self-care (01) ==
LOC: LABWHC1 10:20
PROVIDERS: ATTEND Internal Medicine
DX: J31.0 Chronic rhinitis (principal)
CPT/HCPCS: 36415; 82785; 86003

== ENCOUNTER 2023-08-22 17:48 | Inpatient (IN) | payer MEDICARE, OTHER ==
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
[2023-08-22] MEDS: IBUPROFEN 600 MG TAB PO STA (19:45)
[2023-08-22] MEDS: ACETAMINOPHEN TAB 500 MG TAB PO STA (19:45)
[2023-08-22] MEDS: IPRATROPIUM-ALBUTEROL 3 ML NEB INHALATION STA ×3 (20:08→22:49)
[2023-08-22 20:10] LABS: Basophils # (A) 0.1 k/uL (0-0.2); Basophils % (A) 1 %; Eosinophils # (A) 0.1 k/uL (0-0.7); Eosinophils % (A) 1 %; HCT 36.3 % (34.0-46.0); HGB 12.1 gm/dL (11.4-16.0); Lymphocytes # (A) 1.5 k/uL (1.0-4.8); Lymphocytes % (A) 21 %; MCH 31.1 pg (25.0-35.0); MCHC 33.4 g/dL (31.0-37.0); MCV 93.3 fL (80.0-100.0); Mean Platelet Volume 7.6; Monocytes # (A) 0.4 k/uL (0-1.0); Monocytes % (A) 6 %; Neutrophils # (A) 4.9 k/uL (1.3-7.7); Neutrophils % (A) 68 %; Platelet Count 226 k/uL (150-450); RDW 12.7 % (11.5-15.5); WBC 7.1 k/uL (3.8-10.6)
[2023-08-22] MEDS: SODIUM CHLORIDE 0.9% 500 ML 500 ML IV SCH (20:12)
[2023-08-22] MEDS: methylPREDNISolone SOD SUCCI 125 MG/2 ML VIAL IV STA (20:13)
[2023-08-22 20:21] LABS: INR 1.1 (<1.2); Partial Thromboplastin Time 26.8 sec (22.0-30.0); Prothrombin Time 11.6 sec (10.0-12.5)
[2023-08-22 20:34] LABS: ALT 21 U/L (4-34); AST 24 U/L (14-36); African American GFR (CKD) >90 (>60 ml/min/1.73 sqM); Albumin 3.7 g/dL (3.5-5.0); Alkaline Phosphatase 36 U/L (38-126); Anion Gap 4 mmol/L; Blood Urea Nitrogen 12 mg/dL (7-17); Calcium 8.6 mg/dL (8.4-10.2); Carbon Dioxide 29 mmol/L (22-30); Chloride 96 mmol/L (98-107); Glucose 96 mg/dL (74-99); Non-African American GFR(CKD) >90 (>60 ml/min/1.73 sqM); Potassium 4.2 mmol/L (3.5-5.1); Sodium 129 mmol/L (137-145); Total Bilirubin 0.4 mg/dL (0.2-1.3); Total Protein 6.2 g/dL (6.3-8.2)
[2023-08-22 20:42] LABS: NT-Pro-B-Type Natriuretic Pept 141 pg/mL
[2023-08-22 21:00] LABS: Valproic Acid (Depakene) 13.1 ug/mL
--- NOTE | 2023-08-22 21:32 | XR ---
EXAMINATION TYPE: XR chest 1V portable DATE OF EXAM: 08/22/2023 COMPARISON: 12/13/2022 INDICATION: Fever TECHNIQUE: Frontal and lateral views of the chest are obtained. FINDINGS: The heart size is normal. The pulmonary vasculature is normal. The lungs are clear. IMPRESSION: 1. No acute pulmonary process.
[2023-08-22] MEDS ORDERED: NALOXONE 0.4 MG/ML 1 ML VIAL IV PRN (22:42)
[2023-08-22] MEDS ORDERED: ACETAMINOPHEN TAB 325 MG TAB PO PRN (22:44)
[2023-08-22] MEDS: AZITHROMYCIN 500 MG in SODIUM CHLORIDE 0.9% 250 ML IVPB STA (23:00)
[2023-08-23] MEDS: ALBUTEROL NEBULIZED 2.5 MG/3 ML INHALATION SCH ×2 (01:51→05:12)
[2023-08-23 03:22] LABS: Appearance,Urine Clear (Clear); Bacteria,Urine Occasional /hpf; Bilirubin,Urine Negative (Negative); Blood,Urine Trace (Negative); Color,Urine Colorless; Glucose,Urine (UA) Negative (Negative); Ketones,Urine Negative (Negative); Leukocyte Esterase,Urine Negative (Negative); Mucus,Urine Rare /hpf; Nitrite,Urine Negative (Negative); Protein,Urine Negative (Negative); RBC,Urine 2 /hpf (0-5); Specific Gravity,Urine 1.008 (1.001-1.035); Squamous Epithelial Cell,Urine 1 /hpf (0-4); Urobilinogen,Urine <2.0 mg/dL (<2.0); WBC,Urine <1 /hpf (0-5)
[2023-08-23] MEDS ORDERED: NALOXONE 0.4 MG/ML 1 ML VIAL IVP PRN (09:46)
[2023-08-23] MEDS: guaiFENesin 600 MG TABLET.ER PO SCH (11:03)
[2023-08-23] MEDS: AZITHROMYCIN 500 MG TAB PO SCH (11:03)
[2023-08-23] MEDS: IPRATROPIUM-ALBUTEROL 3 ML NEB INHALATION SCH (11:21)
[2023-08-23] MEDS: methylPREDNISolone SOD SUCCI 125 MG/2 ML VIAL IV SCH (11:28)
[2023-08-23] MEDS: FLUTICASONE 50MCG/SPRAY NASAL 16GM EA NOSTRIL SCH (12:10)
[2023-08-23 12:14] LABS: Basophils % (A) 1 %; Eosinophils % (A) 0 %; HCT 40.2 % (34.0-46.0); HGB 12.7 gm/dL (11.4-16.0); Lymphocytes # (A) 1.3 k/uL (1.0-4.8); Lymphocytes % (A) 19 %; MCH 30.3 pg (25.0-35.0); MCHC 31.5 g/dL (31.0-37.0); MCV 96.3 fL (80.0-100.0); Mean Platelet Volume 7.3; Monocytes # (A) 0.6 k/uL (0-1.0); Monocytes % (A) 9 %; Neutrophils # (A) 4.8 k/uL (1.3-7.7); Neutrophils % (A) 70 %; Platelet Count 224 k/uL (150-450); RBC 4.17 m/uL (3.80-5.40); RDW 12.7 % (11.5-15.5); WBC 6.9 k/uL (3.8-10.6)
[2023-08-23 12:26] LABS: ALT 23 U/L (4-34); AST 22 U/L (14-36); African American GFR (CKD) >90 (>60 ml/min/1.73 sqM); Albumin 3.6 g/dL (3.5-5.0); Alkaline Phosphatase 42 U/L (38-126); Anion Gap 2 mmol/L; Blood Urea Nitrogen 13 mg/dL (7-17); Calcium 8.7 mg/dL (8.4-10.2); Carbon Dioxide 33 mmol/L (22-30); Chloride 102 mmol/L (98-107); Glucose 113 mg/dL (74-99); Non-African American GFR(CKD) >90 (>60 ml/min/1.73 sqM); Potassium 4.4 mmol/L (3.5-5.1); Sodium 137 mmol/L (137-145); Total Bilirubin 0.2 mg/dL (0.2-1.3)
[2023-08-23] MEDS: FLUCONAZOLE 100 MG TAB PO SCH (12:43)
[2023-08-23] MEDS: GABAPENTIN 300 MG CAP PO SCH (12:43)
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
[2023-08-23] MEDS: LORATADINE 10 MG TAB PO SCH (13:09)
[2023-08-23] MEDS: ALPRAZolam 0.25 MG TAB PO PRN (13:09)
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
[2023-08-23] MEDS: BUDESONIDE 0.5 MG/2 ML NEBU INHALATION SCH (19:51)
[2023-08-23] MEDS: FORMOTEROL FUMARATE 20 MCG/2 ML NEBU INHALATION SCH (19:51)
[2023-08-23] MEDS: DIVALPROEX ER 500 MG TAB.ER.24H PO SCH (21:29)
[2023-08-23] MEDS: clonazePAM 0.5 MG TAB PO SCH (21:29)
[2023-08-23] MEDS: KETOTIFEN 0.025% OPHTH DROPS 5 ML BTL BOTH EYES SCH (21:30)
[2023-08-23] MEDS: ARIPiprazole 10 MG TAB PO SCH (21:41)
[2023-08-24] MEDS: CHOLECALCIFEROL 125 MCG (5000 IU) TABLET PO SCH (08:19)
[2023-08-24] MEDS: LOSARTAN 50 MG TAB PO SCH (08:19)
--- NOTE | 2023-08-24 14:30 | P.PN ---
Subjective Progress Note Date: 08/24/23 patient is a 57-year-old lady with past medical history significant for COPD presented to ER for fever and difficulty breathing for the last few days. Patient stated that she has history of COPD and has been using her inhalers more frequently over the last couple of days. Patient stated that she became short of breath on minimal exertion. Patient also complained of productive cough. There is also complaint of fever and chills. Denies any nausea, vomiting abdominal pain. Patient also complaining of chest tightness. Because of the symptoms, patient presented to the ER Initial lab work done in the ER showed WBC 9.1, hemoglobin 12.1, platelet count 226, sodium 129, potassium 4.2, BUN 12, creatinine 0.44 AST 24, ALT 21, troponin 0.012, proBNP 141, UA negative for any infection Influenza A not detected Influenza B not detected RSV not detected COVID-19 not detected EKG done in the ER showed heart rate of 80, no ST segment elevation or depression seen, no T-wave inversions seen. Chest x-ray done in the ER showed no acute cardiopulmonary process Patient admitted to internal medicine service 08/23. Patient seen and examined. Currently on 3 L of oxygen. Still gets short of breath on exertion. Complaining of cough REVIEW OF SYSTEMS: CONSTITUTIONAL: No fever, no malaise,. CARDIOVASCULAR: No chest pain, no palpitations, no syncope. PULMONARY: As mentioned above GASTROINTESTINAL: No diarrhea, no nausea, no vomiting, no abdominal pain. NEUROLOGICAL: No headaches, no weakness, PHYSICAL EXAMINATION: GENERAL: The patient is alert and oriented x3, not in any acute distress. Well developed, well nourished. HEENT: Pupils are round and equally reacting to light. EOMI. No scleral icterus. No conjunctival pallor. Normocephalic, atraumatic. No pharyngeal erythema. No thyromegaly. CARDIOVASCULAR: S1 and S2 present. No murmurs, rubs, or gallops. PULMONARY: Chest is clear to auscultation, no wheezing or crackles. ABDOMEN: Soft, nontender, nondistended, normoactive bowel sounds. No palpable organomegaly. MUSCULOSKELETAL: No joint swelling or deformity. EXTREMITIES: No cyanosis, clubbing, or pedal edema. NEUROLOGICAL: Gross neurological examination did not reveal any focal deficits. SKIN: No rashes. Assessment and plan Acute hypoxic respiratory failure Acute COPD exacerbation Hyperlipidemia History of tobacco addiction History of Mnire disease History of seizures Monitor vital signs Monitor CBC Monitor CMP Continue telemetry monitoring Continue supplementation Aggressive bronchopulmonary hygiene Continue IV Solu-Medrol Continue breathing treatments with DuoNeb, Pulmicort and formoterol Continue azithromycin Pulmonary following Labs and medication were reviewed.. Continue same treatment. Continue with symptomatic treatment. Resume home medication. Monitor labs and vitals. DVT and GI prophylaxis. Further recommendations as per clinical course of the patient Dictation was produced using [employer] dictation software. please excuse any grammatical, word or spelling errors. Objective - Vital Signs Vital signs: Vital Signs Temp 97.9 F 08/24/23 07:46 Pulse 69 08/24/23 08:59 Resp 18 08/24/23 08:59 BP 149/76 08/24/23 07:46 Pulse Ox 99 08/24/23 07:46 FiO2 Intake & Output 08/23/23 08/24/23 08/24/23 18:59 06:59 18:59 Weight 57.606 kg Other: # Voids 3 2 - Labs CBC & Chem 7: 08/23/23 11:48 08/23/23 11:48 Labs: Abnormal Lab Results - Last 24 Hours (Table) 08/23/23 Range/Units 11:48 Carbon Dioxide 33 H (22-30) mmol/L Creatinine 0.39 L (0.52-1.04) mg/dL Glucose 113 H (74-99) mg/dL Total Protein 6.0 L (6.3-8.2) g/dL Microbiology - Last 24 Hours (Table) 08/22/23 20:30 Blood Culture - Preliminary Blood 08/22/23 19:15 Blood Culture - Preliminary Blood
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
[2023-08-25 09:46] VITALS: BP 143/77; RESP 19; TEMP 98.3
[2023-08-25 11:46] VITALS: PULSE 84
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
--- NOTE | 2023-08-25 13:16 | P.DS ---
Providers Date of admission: 08/22/23 22:46 Expected date of discharge: 08/25/23 Attending physician: Kath Adame Consults: 08/23/23 09:46 Consult Physician Routine Consulting Provider: Mikel Giles Consult Reason/Comments: COPD exacerbation Do you want consulting provider notified?: Yes Primary care physician: [facility] Course: Discharge diagnoses; Acute hypoxic respiratory failure Acute COPD exacerbation Oropharyngeal candidiasis Hyperlipidemia History of tobacco addiction History of Mnire disease History of seizures Hospital course; patient is a 57-year-old lady with past medical history significant for COPD presented to ER for fever and difficulty breathing for the last few days. Patient stated that she has history of COPD and has been using her inhalers more frequently over the last couple of days. Patient stated that she became short of breath on minimal exertion. Patient also complained of productive cough. There is also complaint of fever and chills. Denies any nausea, vomiting abdominal pain. Patient also complaining of chest tightness. Because of the symptoms, patient presented to the ER Initial lab work done in the ER showed WBC 9.1, hemoglobin 12.1, platelet count 226, sodium 129, potassium 4.2, BUN 12, creatinine 0.44 AST 24, ALT 21, troponin 0.012, proBNP 141, UA negative for any infection Influenza A not detected Influenza B not detected RSV not detected COVID-19 not detected EKG done in the ER showed heart rate of 80, no ST segment elevation or depression seen, no T-wave inversions seen. Chest x-ray done in the ER showed no acute cardiopulmonary process Patient admitted to internal medicine service 08/23. Patient seen and examined. Currently on 3 L of oxygen. Still gets short of breath on exertion. Complaining of cough 08/24. Patient seen and examined. Breathing has improved. Patient had a walking resting pulse ox done that showed patient to require 2 L of oxygen persistently. Being discharged on tapering dose of prednisone. Pulmonology cleared the patient for discharge PHYSICAL EXAMINATION: GENERAL: The patient is alert and oriented x3, not in any acute distress. Well developed, well nourished. HEENT: Pupils are round and equally reacting to light. EOMI. No scleral icterus. No conjunctival pallor. Normocephalic, atraumatic. No pharyngeal erythema. No thyromegaly. CARDIOVASCULAR: S1 and S2 present. No murmurs, rubs, or gallops. PULMONARY: Chest is clear to auscultation, no wheezing or crackles. ABDOMEN: Soft, nontender, nondistended, normoactive bowel sounds. No palpable organomegaly. MUSCULOSKELETAL: No joint swelling or deformity. EXTREMITIES: No cyanosis, clubbing, or pedal edema. NEUROLOGICAL: Gross neurological examination did not reveal any focal deficits. SKIN: No rashes. Dictation was produced using [employer] dictation software. please excuse any grammatical, word or spelling errors. Patient Condition at Discharge: Stable Plan - Discharge Summary New Discharge Prescriptions: New Fluconazole [Diflucan] 100 mg PO DAILY 7 Days #7 tab guaiFENesin [Mucinex] 600 mg PO Q12HR 7 Days #14 tab predniSONE 10 mg PO DAILY 8 Days #20 tab Continue Budesonide-Formot 160-4.5 Mcg [Symbicort 160-4.5 Mcg Inhaler] 2 puff INHALATION RT-BID Divalproex ER [Depakote ER] 1,000 mg PO HS Albuterol Inhaler [Ventolin Hfa Inhaler] 1 - 2 puff INHALATION RT-Q6H PRN PRN Reason: Shortness Of Breath Cholecalciferol [Vitamin D3 (125 Mcg = 5000 Iu)] 125 mcg PO DAILY tab Fluticasone Nasal [place] [Flonase Nasal [place]] 2 spray EA NOSTRIL DAILY Cetirizine HCl 10 mg PO DAILY Azelastine HCl [Optivar 0.05% Ophth Soln] 1 drop BOTH EYES BID Gabapentin [Neurontin] 300 mg PO BID Nystatin 100,000 Unit/ml Susp [Mycostatin Oral Susp] 5 ml PO QID Azithromycin [Zithromax Z Pack] See Taper PO DIRECTED Losartan [Cozaar] 50 mg PO DAILY Ipratropium/Albuter 20-100Mcg [Combivent Respimat 20-100Mcg Inhaler] 1 puff INHALATION RT-QID clonazePAM 0.5 mg PO HS ARIPiprazole [Abilify] 10 mg PO DAILY Discontinued predniSONE See Taper PO DIRECTED Discharge Medication List Budesonide-Formot 160-4.5 Mcg [Symbicort 160-4.5 Mcg Inhaler] 2 puff INHALATION RT-BID 02/17/14 [History] Divalproex ER [Depakote ER] 1,000 mg PO HS 02/17/14 [History] Albuterol Inhaler [Ventolin Hfa Inhaler] 1 - 2 puff INHALATION RT-Q6H PRN 12/01/17 [History] Cholecalciferol [Vitamin D3 (125 Mcg = 5000 Iu)] 125 mcg PO DAILY tab 12/16/22 [Rx] ARIPiprazole [Abilify] 10 mg PO DAILY 08/23/23 [History] Azelastine HCl [Optivar 0.05% Ophth Soln] 1 drop BOTH EYES BID 08/23/23 [History] Azithromycin [Zithromax Z Pack] See Taper PO DIRECTED 08/23/23 [History] Cetirizine HCl 10 mg PO DAILY 08/23/23 [History] Fluticasone Nasal [place] [Flonase Nasal [place]] 2 spray EA NOSTRIL DAILY 08/23/23 [History] Gabapentin [Neurontin] 300 mg PO BID 08/23/23 [History] Ipratropium/Albuter 20-100Mcg [Combivent Respimat 20-100Mcg Inhaler] 1 puff INHALATION RT-QID 08/23/23 [History] Losartan [Cozaar] 50 mg PO DAILY 08/23/23 [History] Nystatin 100,000 Unit/ml Susp [Mycostatin Oral Susp] 5 ml PO QID 08/23/23 [History] clonazePAM 0.5 mg PO HS 08/23/23 [History] Fluconazole [Diflucan] 100 mg PO DAILY 7 Days #7 tab 08/25/23 [Rx] guaiFENesin [Mucinex] 600 mg PO Q12HR 7 Days #14 tab 08/25/23 [Rx] predniSONE 10 mg PO DAILY 8 Days #20 tab 08/25/23 [Rx] Follow up Appointment(s)/Referral(s): Katie Pisano [Primary Care Provider] - 1-2 days Mikel Giles MD [STAFF PHYSICIAN] - 1 Week Discharge Disposition: HOME SELF-CARE
== END 2023-08-25 13:50 | disposition home or self-care (01) | DRG 190 ==
LOC: EC 17:48 → 4SSUR 22:46
PROVIDERS: ADMIT Hospitalist; ATTEND Hospitalist
DX: J44.1 Chronic obstructive pulmonary disease with (acute) exacerbation (principal); J96.01 Acute respiratory failure with hypoxia; I42.9 Cardiomyopathy, unspecified; B37.89 Other sites of candidiasis; B37.0 Candidal stomatitis; H81.09 Meniere's disease, unspecified ear; F41.9 Anxiety disorder, unspecified; F31.9 Bipolar disorder, unspecified; F17.200 Nicotine dependence, unspecified, uncomplicated; E78.5 Hyperlipidemia, unspecified; K76.0 Fatty (change of) liver, not elsewhere classified; Z79.51 Long term (current) use of inhaled steroids; Z79.82 Long term (current) use of aspirin; Z79.899 Other long term (current) drug therapy; I25.2 Old myocardial infarction; Z82.5 Family history of asthma and other chronic lower respiratory diseases; Z86.16 Personal history of COVID-19; Z87.19 Personal history of other diseases of the digestive system; Z11.52 Encounter for screening for COVID-19
CPT/HCPCS: 36415; 71045; 80053; 80164; 81001; 83605; 83880; 84484; 85025; 85610; 85730; 87040; 87636; 93005; 94640; 96361; 96375; 99285

== ENCOUNTER → 2023-09-01 | Outpatient (CLI) | payer MEDICARE, OTHER ==
[2023-09-01 13:25] VITALS: BP 122/78; PULSE 89; RESP 18; TEMP 98.5
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
--- NOTE | 2023-09-02 14:36 | MM ---
Reason for Exam: Screening (asymptomatic). Last mammogram was performed 1 year(s) and 2 month(s) ago. Patient History: Menarche at age 12. First Full-Term at age 18. Postmenopausal. Patient used Hormonal Contraceptives for 2 years. 12/15/2007, Excisional Biopsy on the Left side. 09/12/2020, US discontinued breast bx RT on the right side. 12/08/2007, Cancelled Left Mammotome on the left side. Maternal cousin had breast cancer, age 58. Maternal cousin had breast cancer, age 55. Risk Values: Nirali 5 year model risk: 1.1%. NCI Lifetime model risk: 6.6%. Prior Study Comparison: 08/16/2020 Right Diagnostic Mammogram, [facility]. 04/04/2021 Bilateral Diagnostic Mammogram, [facility]. 07/22/2022 Bilateral MG 3D screening mammo w/cad, [facility]. Tissue Density: The breasts are heterogeneously dense, which may obscure small masses. Findings: Analyzed By CAD. Right breast: There is no suspicious group of microcalcifications or new suspicious mass. Left breast: There is no suspicious group of microcalcifications or new suspicious mass. Overall Assessment: Negative, BI-RAD 1 Management: Screening Mammogram of both breasts in [address] [facility] will attempt to contact patient to return for supplemental views and ultrasound if indicated. Patient should continue monthly self-breast exams. A clinical breast exam by your physician is recommended on an annual basis. This exam should not preclude additional follow-up of suspicious palpable abnormalities. Note on Nirali scores and lifetime risk: 1. A Nirali score greater than 3% is considered moderate risk. If this is the case, consider specialist referral to assess eligibility for a risk reducing agent. 2. If overall lifetime risk for the development of breast cancer is 20% or higher, the patient may qualify for future screening with alternating mammogram and breast MRI. Electronically signed and approved by: Javy Trinh DO
== END ==
LOC: WWCWWP 12:30
PROVIDERS: ATTEND Obstetrics & Gynecology
DX: Z12.31 Encounter for screening mammogram for malignant neoplasm of breast (principal); F17.210 Nicotine dependence, cigarettes, uncomplicated; Z78.0 Asymptomatic menopausal state; Z87.42 Personal history of other diseases of the female genital tract; Z88.1 Allergy status to other antibiotic agents; Z88.8 Allergy status to other drugs, medicaments and biological substances; Z80.3 Family history of malignant neoplasm of breast
CPT/HCPCS: 77063; 77067

== ENCOUNTER → 2024-04-22 | Outpatient (CLI) | payer MEDICARE, OTHER ==
--- NOTE | 2024-04-22 14:26 | CTL ---
EXAMINATION TYPE: CT Low Dose Lung DATE OF EXAM ORDERED: 04/22/2024 COMPARISON: CT Low Dose Lung 01/07/2023, CTA chest 04/04/2016 CLINICAL INDICATION: Female, 58 years old with history of Z12.2 LUNG CA SCR F17.210 CURRENT SMOKER; P HH, personal tobacco use, Lung cancer screening, History of Smoking/tobacco use. TECHNIQUE: Low dose computed tomography scan was performed through the chest at 1 mm thick sections a nd reconstructed images in multiple planes at 1 mm and [address] DLP: 89.[address] CTDI: 2.6 mGy Automated exposure control for dose reduction was used. CT DIAGNOSTIC QUALITY: Satisfactory FINDINGS: Nodules: Stable right upper lobe 3 mm pulmonary nodule (series 4, image 44). Stable calcified granuloma within the medial aspect of the left upper lobe (series 4, image 105). Stable anterior right upper lobe 4 mm pulmonary nodule (series 4, image 88). No new or enlarging pulmonary nodules. LUNGS: COPD: Severity: Mild to moderate centrilobular emphysematous changes. Fibrosis: Severity: None Lymph nodes: None Other findings: Biapical pleural-parenchymal scarring. RIGHT PLEURAL SPACE: Effusion: None Calcification: None Thickening: None Pneumothorax: None LEFT PLEURAL SPACE: Effusion: None Calcification: None Thickening: None Pneumothorax: None HEART: Heart Size: Normal Coronary Calcification: Small Pericardial Effusion: Small OTHER FINDINGS: Upper abdomen: None Bony thorax: None Supraclavicular region: None Other: Atherosclerotic calcification of aorta and its branches. IMPRESSION: 1. Stable few pulmonary nodules measuring up to 4 mm. No new or enlarging pulmonary nodules. 2. Mild to moderate COPD changes. CT LUNG RAD AND CT CHEST RECOMMENDATION: Lung-Rad 2 Benign Appearance or Behavior: Continue annual sc reening with LDCT in 12 months. S Modifier (other clinically significant findings): None [facility], , 04/22/2024 2:23 PM
== END | disposition home or self-care (01) ==
LOC: RADCTMAIN 12:51
PROVIDERS: ATTEND Internal Medicine
DX: Z12.2 Encounter for screening for malignant neoplasm of respiratory organs (principal); F17.210 Nicotine dependence, cigarettes, uncomplicated; J44.9 Chronic obstructive pulmonary disease, unspecified; R91.8 Other nonspecific abnormal finding of lung field
CPT/HCPCS: 71271

== ENCOUNTER → 2024-09-06 | Outpatient (CLI) | payer MEDICARE, OTHER ==
[2024-09-06 11:38] VITALS: BP 149/82; PULSE 72; RESP 16; TEMP 98.8
--- NOTE | 2024-09-06 11:56 | MM ---
Reason for Exam: Screening (asymptomatic). Last screening mammogram was performed 12 month(s) ago. Patient History: Menarche at age 12. First Full-Term at age 18. Postmenopausal. Patient used Hormonal Contraceptives for 2 years. 12/15/2007, Excisional Biopsy on the Left side. 09/12/2020, US discontinued breast bx RT on the right side. 12/08/2007, Cancelled Left Mammotome on the left side. Maternal cousin had breast cancer, age 58. Maternal cousin had breast cancer, age 55. Risk Values: Nirali 5 year model risk: 1.2%. NCI Lifetime model risk: 6.4%. Prior Study Comparison: 04/04/2021 Bilateral Diagnostic Mammogram, [facility]. 07/22/2022 Bilateral MG 3D screening mammo w/cad, [facility]. 09/01/2023 Bilateral MG 3D screening mammo w/cad, [facility]. Tissue Density: There are scattered areas of fibroglandular density. Findings: Analyzed By CAD. There is no suspicious group of microcalcifications or new suspicious mass in either breast. Overall Assessment: Negative, BI-RAD 1 Management: Screening Mammogram of both breasts in 1 year. . Patient should continue monthly self-breast exams. A clinical breast exam by your physician is recommended on an annual basis. This exam should not preclude additional follow-up of suspicious palpable abnormalities. Note on Nirali scores and lifetime risk: 1. A Nirali score greater than 3% is considered moderate risk. If this is the case, consider specialist referral to assess eligibility for a risk reducing agent. 2. If overall lifetime risk for the development of breast cancer is 20% or higher, the patient may qualify for future screening with alternating mammogram and breast MRI. [facility], , 09/06/2024 11:53 AM. Electronically signed and approved by: Michael Alaniz M.D.
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
== END | disposition home or self-care (01) ==
LOC: RADMAMWWP 10:27
PROVIDERS: ATTEND Obstetrics & Gynecology
DX: Z12.31 Encounter for screening mammogram for malignant neoplasm of breast (principal); R92.323 Mammographic fibroglandular density, bilateral breasts; J44.9 Chronic obstructive pulmonary disease, unspecified; E78.5 Hyperlipidemia, unspecified; I25.2 Old myocardial infarction; Z86.16 Personal history of COVID-19; F17.210 Nicotine dependence, cigarettes, uncomplicated; Z78.0 Asymptomatic menopausal state; Z80.3 Family history of malignant neoplasm of breast; Z92.0 Personal history of contraception
CPT/HCPCS: 77063; 77067

== ENCOUNTER → 2024-10-12 | Outpatient (CLI) | payer MEDICARE, OTHER ==
--- NOTE | 2024-10-12 09:22 | P.PN ---
Progress Note - Text Progress Note Date: 10/12/24 The patient called complaining of possible yeast infection. The patient has noticed some vaginal and vulvar itching with a thin discharge without odor. She states this feels like her other yeast infections that she has had in the past. She is requesting an oral pill since she uses the Estring which is inserted vaginally. Impression: Probable Enedelia vaginitis Plan: Diflucan 150 mg p.o. every 48 hours x 2 doses. The electronic prescription will be sent to [facility] pharmacy and there will be 1 refill which she can use as needed. If her symptoms do not improve within 2 to 3 days, she was instructed to call to make an appointment to be seen for further evaluation.
== END ==
LOC: WWCWWP 09:13
PROVIDERS: ATTEND Obstetrics & Gynecology
DX: L29.2 Pruritus vulvae (principal); F17.200 Nicotine dependence, unspecified, uncomplicated; Z88.1 Allergy status to other antibiotic agents; Z88.8 Allergy status to other drugs, medicaments and biological substances